=== PATIENT | female | born 1940 | race Caucasian/White ===

== ENCOUNTER 2019-08-24 10:30 | Outpatient (RCR) | payer MEDICARE, SELFPAY ==
[2019-08-21 10:57] VITALS: BP 218/90; PULSE 71; RESP 16; TEMP 36.2; BMI 31.8
--- NOTE | 2019-08-21 12:13 | PCM.WC.HP ---
(1) Leg swelling Status: Chronic Current Visit: Yes Code(s): M79.89 - Other specified soft tissue disorders (2) Edema of both legs Status: Chronic Current Visit: Yes Code(s): R60.0 - Localized edema (3) Venous hypertension, chronic, with ulcer Status: Chronic Current Visit: Yes Code(s): I87.319 - Chronic venous hypertension (idiopathic) with ulcer of unspecified lower extremity; L97.909 - Non-pressure chronic ulcer of unspecified part of unspecified lower leg with unspecified severity (4) Venous stasis ulcer Status: Chronic Current Visit: Yes Qualifiers: Venous stasis ulcer site: calf Varicose vein presence: without varicose veins Laterality: right Non-pressure ulcer stage: with fat layer exposed Qualified Code(s): I87.2 - Venous insufficiency (chronic) (peripheral); L97.212 - Non-pressure chronic ulcer of right calf with fat layer exposed Code(s): I83.009 - Varicose veins of unspecified lower extremity with ulcer of unspecified site; L97.909 - Non-pressure chronic ulcer of unspecified part of unspecified lower leg with unspecified severity (5) Lymphedema Status: Chronic Current Visit: Yes Code(s): I89.0 - Lymphedema, not elsewhere classified (6) Obesity (BMI 30.0-34.9) Status: Chronic Current Visit: Yes Code(s): E66.9 - Obesity, unspecified (7) CAD (coronary artery disease) Status: Chronic Current Visit: No Code(s): I25.10 - Atherosclerotic heart disease of [place] coronary artery without angina pectoris (8) Diabetes mellitus Status: Chronic Current Visit: No Code(s): E11.9 - Type 2 diabetes mellitus without complications (9) Hypertension Status: Chronic Current Visit: No Code(s): I10 - Essential (primary) hypertension (10) History of IN (myocardial infarction) Status: Chronic Current Visit: No Code(s): I25.2 - Old myocardial infarction (11) Hypothyroidism Status: Chronic Current Visit: No Code(s): E03.9 - Hypothyroidism, unspecified (12) Renal failure Status: Chronic Current Visit: No Code(s): N19 - Unspecified kidney failure (13) Hyperlipidemia Status: Chronic Current Visit: No Code(s): E78.5 - Hyperlipidemia, unspecified (14) Debility Status: Chronic Current Visit: Yes Code(s): R53.81 - Other malaise (15) Dependent edema Status: Chronic Current Visit: Yes Code(s): R60.9 - Edema, unspecified History of Present Illness Date of Service: 08/21/19 Chief Complaint: Severe swelling, edema, and lymphedema in the lower extremities bilaterally, with ulceration of the right anterior tibial surface History of Wound: This is a 79-year-old female who presented with severe swelling, edema, and lymphedema in the lower extremities bilaterally. In addition, she has an ulceration on the right anterior tibial surface, said to be present for approximately 6 weeks. It initially occurred approximately 6 weeks ago, having developed spontaneously. Initially, according to the patient, the area became blistered, and subsequently opened to form an ulceration. Patient is not active. She spends long hours each day sitting idlely. She sleeps in a chair. When ambulatory, she requires the use of a cane or walker. She is mildly obese. Past Medical History Past Medical History: Chronic Problems Leg swelling (Chronic) Edema of both legs (Chronic) Venous hypertension, chronic, with ulcer (Chronic) Venous stasis ulcer (Chronic) Lymphedema (Chronic) Obesity (BMI 30.0-34.9) (Chronic) CAD (coronary artery disease) (Chronic) Diabetes mellitus (Chronic) Hypertension (Chronic) History of IN (myocardial infarction) (Chronic) Hypothyroidism (Chronic) Renal failure (Chronic) Hyperlipidemia (Chronic) Debility (Chronic) Dependent edema (Chronic) Past Medical History: The patient has a history of myocardial infarction, coronary artery disease, hyperlipidemia, diabetes mellitus, hypertension, hypothyroidism, and chronic renal insufficiency. She denies a history of pulmonary disease, cancer, and cerebrovascular accident. Surgical History: - - Patient is undergone partial hysterectomy in the past. She is also undergone cholecystectomy. Coronary revascularization was performed approximately 6 years ago. The patient is a G3, P3 Ab0. Allergies/Adverse Reactions: Allergies indomethacin [From Indocin] Allergy (Verified 08/21/19 11:29) Vomiting Home Medications: Ambulatory Orders Medication Instructions Recorded Aspirin [Aspir 81] 81 mg PO DAILY 08/21/19 Atorvastatin Calcium 80 mg PO DAILY 08/21/19 Chlorthalidone 50 mg PO DAILY 08/21/19 Cholecalciferol (Vitamin D3) 2,000 unit PO DAILY 08/21/19 [Vitamin D3] Digoxin [Digitek] 125 mcg PO DAILY 08/21/19 Glimepiride [Amaryl] 2 mg PO DAILY 08/21/19 Hydralazine HCl 100 mg PO TID 08/21/19 Isosorbide Mononitrate [Isosorbide 30 mg PO DAILY 08/21/19 Mononitrate ER] Levothyroxine Sodium 125 mcg PO DAILY 08/21/19 Lisinopril 20 mg PO DAILY 08/21/19 Metoprolol Tartrate 50 mg PO BID 08/21/19 - Family History Paternal - - Patient's father at the age of 56 with a history of myocardial infarction. The patient's mother at the age of 56 with history of breast cancer. Social History: The patient is a . 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 She denies use of alcohol and tobacco products. She lives with her daughter. Lives: With Family Smoking Status: Never smoker Tobacco Use: Non-smoker Alcohol: None Drugs: None Review of Systems Constitutional: Denies: Chills, Fever, Weight Change Eyes: Denies: Pain, Vision Change HEENT: Denies: Difficulty Hearing, Difficulty Swallowing, Sinus Congestion Cardiovascular: Denies: Chest Pain, Palpitations Respiratory: Denies: Cough, Shortness of Breath Gastrointestinal: Denies: Diarrhea, Nausea, Vomiting Genitourinary: Denies: Dysuria, Hematuria Endocrine: Denies: Heat/ Cold Intolerance, Polydipsia, Polyuria Hematologic/ Lymphatic: Denies: Easy Bruising, Easy Bleeding - Physical Exam Vital Signs Temp Pulse Resp BP 97.1 F L 71 16 218/90 H 08/21/19 10:57 08/21/19 10:57 08/21/19 10:57 08/21/19 10:57 General: Alert, Oriented x3, Cooperative, No apparent distress, Well developed, Well nourished, - - The patient is mildly obese HEENT: Atraumatic, PERRLA, EOMI, Normocephalic Oral: Moist Mucosa Neck: Supple, No JVD, Negative Carotid Bruits, Negative Hepatojugular Reflux, No Nodes, No Nuchal Rigidity, Trachea Midline Lungs: Clear to auscultation, Normal air movement, No rhonchi, No wheeze, No rales Cardiovascular: Regular rate, Regular Rhythm, Normal S1, Normal S2, No murmurs Abdomen: Soft, Non Tender, Non-Distended Extremities: No clubbing, No cyanosis, No Calf Tenderness, - - Severe swelling, edema, and lymphedema is noted in the lower extremities bilaterally. In the left leg, there are no open wounds or ulcerations. There are no significant skin changes. On the right, there is a large open wound on the right anterior tibial surface. Dimensions are documented elsewhere. There is no sign of lupe infection or cellulitis. There is some surrounding blistering. Skin: No rashes Wound Measurements and Assessment WC - Nurse 1 - General Ulcer Measurement Start: 08/21/19 10:55 Freq: Status: Active Protocol: Activity Type Activity Date Activity User E-Sign Co-Sign Detail Recorded Client Recorded Date Recorded By Document 08/21/19 10:57 JESUS MANUEL [email or web address] 08/21/19 11:16 JESUS MANUEL 08/21/19 10:57 Wound Center Nurse 1 [Ulcer Assessment] 1-right sinclair -Combined with other wound No -Current Size (cm) - Length 9.4 -Current Size (cm) - Width 8 -Current Size (cm) - Depth 0.2 -Total Square Cm 75.2 -Photo Taken Yes -Epithelialization Small 1-33% -Tunneling No -Undermining/Tunneling No -Circular Undermining No -Classification - Thickness Full Thickness without Exposed Support Structure -Classification - Rothman Grading ( Grade 2 Diabetic Ulcer) -Exudate Amt Large -Exudate Type Serosanguineous -Wound Margin Flat & Intact -Granulation Amt Large (67-100%) -Granulation Quality Red -Slough/Fibrin Yes -Necrosis Amt Small (1-33%) -Necrotic Tissue Type Adherent Slough -Structure Exposed N/A -Texture (Ileana-wound Skin Appearance) Assessed, Localized Edema -Moisture (Ileana-wound Skin Appearance Assessed,Dry/ ) Scaly -Color (Ileana-wound Skin Appearance) Assessed, Hemosiderin Staining -Temperature (Ileana-wound Skin No Abnormality Appearance) (Pt Warm) -Tenderness on Palpation (Ileana-wound No Skin Appearance) -Ulcer Cleansing Rinsed/ Irrigated with Saline -Foul Odor after Cleansing No -Anesthetic Used 4% Lidocaine Solution [Edema Assessment] -Lower Limb Edema Present Yes -Right Calf (cm) 50.2 -Right Ankle (cm) 30.1 -Left Calf (cm) 48.2 -Left Ankle (cm) 33.3 Neurological: Cranial nerves II-XII grossly intact, Neuro grossly intact Psych/Mental Status: Normal Affect, Appropriate, Alert and oriented to time, place, person, mood and affect Debridement Note No debridement was completed today Assessment/Plan Active Problems Leg swelling (Chronic) Edema of both legs (Chronic) Venous hypertension, chronic, with ulcer (Chronic) Venous stasis ulcer (Chronic) Lymphedema (Chronic) Obesity (BMI 30.0-34.9) (Chronic) Debility (Chronic) Dependent edema (Chronic) Assessment: This is a 79-year-old mildly obese female with multiple pre-existing medical conditions. These include, but are not limited to, diabetes mellitus, coronary artery disease, hyperlipidemia, hypertension, hypothyroidism, renal insufficiency, etc. The patient is extremely hypertensive today, a factor but has been brought to the patient's attention. She is to follow-up with her primary care physician in this regard. She has significant swelling, edema, and lymphedema in the lower extremities bilaterally, with an associated open ulceration on the right anterior tibial surface. Her presenting symptoms and manifestations appear to be related to lifestyle factors. She is sedentary, and sits for long periods each day. Furthermore, the patient sleeps in an upright position. She is mildly obese, and not active. It appears as though these lifestyle factors have resulted in significant swelling, edema, and lymphedema in the patient's lower extremities, which have more recently resulted in the element of an ulceration on the right anterior tibial surface. Plan: The patient has been advised to elevate her lower extremities as much as possible. The means by which this is to be accomplished has been discussed in detail with the patient and with her daughter, who was at the bedside. Patient's legs are to be elevated to heart level, or higher. This is to be accomplished as much as possible, even during daytime hours. The patient has been advised to sleep on a flat mattress at night. Activity has been encouraged, though the patient is somewhat limited by her physical status. She has been urged to refrain from prolonged, idle standing and sitting. Weight loss has been recommended. We are to implement compression to the lower extremities by means of an [place] boot in the right lower extremity, and a 3M 2 layer compression wrap to the left lower extremity. These compression wraps are to be changed twice weekly. Patient is to undergo routine laboratory studies, which will include a CBC, comprehensive metabolic profile, serum prealbumin, and hemoglobin A1c. A noninvasive lower extremity arterial study will also be obtained. Patient has been advised to optimize her nutritional intake. Optimization of the patient's glycemic control has also been recommended. Ultimately, mechanical, pneumatic compression pumps may be considered. Influenza vaccine was not administered today. Patient is not a smoker. The patient is 5 feet 3 inches tall. She weighs 180 pounds. Her BMI is 31.8, which places her in a class I obesity category. Weight loss has been recommended, in collaboration with her primary care physician in this regard has been advised.
[2019-08-24 10:52] VITALS: RESP 16; TEMP 36.1; BMI 31.8
== END 2019-08-27 23:59 ==
LOC: WC 10:30
PROVIDERS: Family Provider Family Medicine; PCP Family Medicine; Visit Provider Surgery
DX: E11.622 Type 2 diabetes mellitus with other skin ulcer (principal); I89.0 Lymphedema, not elsewhere classified; E66.9 Obesity, unspecified; Z71.3 Dietary counseling and surveillance; I25.10 Atherosclerotic heart disease of native coronary artery without angina pectoris; M79.89 Other specified soft tissue disorders; I87.311 Chronic venous hypertension (idiopathic) with ulcer of right lower extremity; L97.812 Non-pressure chronic ulcer of other part of right lower leg with fat layer exposed; R60.0 Localized edema; I25.2 Old myocardial infarction; I12.9 Hypertensive chronic kidney disease with stage 1 through stage 4 chronic kidney disease, or unspecified chronic kidney disease; N18.9 Chronic kidney disease, unspecified; E11.22 Type 2 diabetes mellitus with diabetic chronic kidney disease; E78.5 Hyperlipidemia, unspecified; E03.9 Hypothyroidism, unspecified; Z79.899 Other long term (current) drug therapy; Z68.31 Body mass index [BMI] 31.0-31.9, adult
CPT/HCPCS: 29580; 29581; 99203; 99213; G0463

== ENCOUNTER 2019-09-25 10:45 | Outpatient (RCR) | payer MEDICARE, SELFPAY ==
[2019-08-28 01:20] VITALS: BP 218/90; PULSE 71; RESP 16; TEMP 36.1
[2019-08-28 11:00] VITALS: BP 171/90; PULSE 70; RESP 20; TEMP 36; BMI 31.8
--- NOTE | 2019-08-28 11:29 | HP.PCM_ITS ---
(1) Leg swelling Status: Chronic Current Visit: Yes Code(s): M79.89 - Other specified soft tissue disorders (2) Edema of both legs Status: Chronic Current Visit: Yes Code(s): R60.0 - Localized edema (3) Venous hypertension, chronic, with ulcer Status: Chronic Current Visit: Yes Code(s): I87.319 - Chronic venous hypertension (idiopathic) with ulcer of unspecified lower extremity; L97.909 - Non-pressure chronic ulcer of unspecified part of unspecified lower leg with unspecified severity (4) Venous stasis ulcer Status: Chronic Current Visit: Yes Qualifiers: Venous stasis ulcer site: calf Varicose vein presence: without varicose veins Laterality: right Code(s): I83.009 - Varicose veins of unspecified lower extremity with ulcer of unspecified site; L97.909 - Non-pressure chronic ulcer of unspecified part of unspecified lower leg with unspecified severity (5) Lymphedema Status: Chronic Current Visit: Yes Code(s): I89.0 - Lymphedema, not elsewhere classified (6) Obesity (BMI 30.0-34.9) Status: Chronic Current Visit: Yes Code(s): E66.9 - Obesity, unspecified (7) CAD (coronary artery disease) Status: Chronic Current Visit: No Code(s): I25.10 - Atherosclerotic heart disease of [place] coronary artery without angina pectoris (8) Diabetes mellitus Status: Chronic Current Visit: No Code(s): E11.9 - Type 2 diabetes mellitus without complications (9) Hypertension Status: Chronic Current Visit: No Code(s): I10 - Essential (primary) hyp ertension (10) History of NH (myocardial infarction) Status: Chronic Current Visit: No Code(s): I25.2 - Old myocardial infarction (11) Hypothyroidism Status: Chronic Current Visit: No Code(s): E03.9 - Hypothyroidism, unspecified (12) Renal failure Status: Chronic Current Visit: No Code(s): N19 - Unspecified kidney failure (13) Hyperlipidemia Status: Chronic Current Visit: No Code(s): E78.5 - Hyperlipidemia, unspe cified (14) Debility Status: Chronic Current Visit: Yes Code(s): R53.81 - Other malaise (15) Dependent edema Status: Chronic Current Visit: Yes Code(s): R60.9 - Edema, unspecified History of Present Illness Date of Service: 08/28/19 Chief Complaint: Severe swelling, edema, and lymphedema in the lower extremities bilaterally, with ulceration of the right anterior tibial surface History of Wound: This is a 79-year-old female who presented with severe swelling, edema, and lymphedema in the lower extremities bilaterally. In addition, she has an ulceration on the right anterior tibial surface, said to be present for approximately 6 weeks. It initially occurred approximately 6 weeks prior to admission, having developed spontaneously. Initially, according to the patient, the area became blistered, and subsequently opened to form an ulceration. Patient is not active. She spends long hours each day sitting idlely. She sleeps in a chair. When ambulatory, she requires the use of a cane or walker. She is mildly obese. Past Medical History Past Medical History: Chronic Problems Leg swelling (Chronic) Edema of both legs (Chronic) Venous hypertension, chronic, with ulcer (Chronic) Venous stasis ulcer (Chronic) Lymphedema (Chronic) Obesity (BMI 30.0-34.9) (Chronic) CAD (coronary artery disease) (Chronic) Diabetes mellitus (Chronic) Hypertension (Chronic) History of NH (myocardial infarction) (Chronic) Hypothyroidism (Chronic) Renal failure (Chronic) Hyperlipidemia (Chronic) Debility (Chronic) Dependent edema (Chronic) Surgical History: - - Patient is undergone partial hysterectomy in the past. She is also undergone cholecystectomy. Coronary revascularization was performed approximately 6 years ago. The patient is a G3, P3 Ab0. Allergies/Adverse Reactions: Allergies indomethacin [From Indocin] Allergy (Verified 08/21/19 11:29) Vomiting Home Medications: Ambulatory Orders Medication Instructions Recorded Aspirin [Aspir 81] 81 mg PO DAILY 08/21/19 Atorvastatin Calcium 80 mg PO DAILY 08/21/19 Chlorthalidone 50 mg PO DAILY 08/21/19 Cholecalciferol (Vitamin D3) 2,000 unit PO DAILY 08/21/19 [Vitamin D3] Digoxin [Digitek] 125 mcg PO DAILY 08/21/19 Glimepiride [Amaryl] 2 mg PO DAILY 08/21/19 Hydralazine HCl 100 mg PO TID 08/21/19 Isosorbide Mononitrate [Isosorbide 30 mg PO DAILY 08/21/19 Mononitrate ER] Levothyroxine Sodium 125 mcg PO DAILY 08/21/19 Lisinopril 20 mg PO DAILY 08/21/19 Metoprolol Tartrate 50 mg PO BID 08/21/19 - Family History Paternal - - Patient's father at the age of 56 with a history of myocardial infarction. The patient's mother at the age of 56 with history of breast cancer. Smoking Status: Never smoker Tobacco Use: Non-smoker Review of Systems Constitutional: Denies: Chills, Fever, Weight Change Eyes: Denies: Pain, Vision Change HEENT: Denies: Difficulty Hearing, Difficulty Swallowing, Sinus Congestion Cardiovascular: Denies: Chest Pain, Palpitations Respiratory: Denies: Cough, Shortness of Breath Gastrointestinal: Denies: Diarrhea, Nausea, Vomiting Genitourinary: Denies: Dysuria, Hematuria Endocrine: Denies: Heat/ Cold Intolerance, Polydipsia, Polyuria Hematologic/ Lymphatic: Denies: Easy Bruising, Easy Bleeding - Physical Exam Vital Signs Temp Pulse Resp BP 96.8 F L 70 20 H 171/90 H 08/28/19 11:00 08/28/19 11:00 08/28/19 11:00 08/28/19 11:00 General: Alert, Oriented x3, Cooperative, No apparent distress, Well developed, Well nourished HEENT: Atraumatic, PERRLA, EOMI, Normocephalic Oral: Moist Mucosa Neck: No JVD Lungs: Normal air movement Abdomen: Non-Distended, Obese Extremities: No clubbing, No cyanosis, No Calf Tenderness, - - Mild swelling and edema persist in the patient's lower extremities bilaterally. A large superficial ulceration is noted on the right anterolateral calf. It is little changed from 1 week prior. Dimensions are documented elsewhere. There is no sign of infection or cellulitis. There is a mild amount of bioburden and nonviable tissue. Skin: No rashes Wound Measurements and Assessment WC - Nurse 1 - General Ulcer Measurement Start: 08/28/19 11:00 Freq: Status: Active Protocol: Activity Type Activity Date Activity User E-Sign Co-Sign Detail Recorded Client Recorded Date Recorded By Document 08/28/19 11:00 DL [id number] 08/28/19 11:11 DL 08/28/19 11:00 Wound Center Nurse 1 [Ulcer Assessment] 1-right sinclair -Current Size (cm) - Length 11.2 -Current Size (cm) - Width 8.6 -Current Size (cm) - Depth 0.1 -Total Square Cm 96.32 -Photo Taken No -Exudate Amt Large -Exudate Type Serosanguineous -Wound Margin Distinct, Outline Attached -Granulation Amt Medium (34-66%) -Granulation Quality Red -Necrosis Amt Medium (34-66%) -Necrotic Tissue Type Adherent Slough -Structure Exposed N/A -Texture (Ileana-wound Skin Appearance) Localized Edema ,Scarring -Moisture (Ileana-wound Skin Appearance No Abnormality ) -Color (Ileana-wound Skin Appearance) Hemosiderin Staining -Temperature (Ileana-wound Skin No Abnormality Appearance) (Pt Warm) -Tenderness on Palpation (Ileana-wound No Skin Appearance) -Ulcer Cleansing Wound Cleanser -Foul Odor after Cleansing No -Anesthetic Used 4% Lidocaine Solution [Edema Assessment] -Right Calf (cm) 40.1 -Right Ankle (cm) 26.5 -Left Calf (cm) 42 -Left Ankle (cm) 29.5 WC - Nurse 2 - General Ulcer CM Notes Start: 08/28/19 11:00 Freq: Status: Active Protocol: Activity Type Activity Date Activity User E-Sign Co-Sign Detail Recorded Client Recorded Date Recorded By Document 08/28/19 11:23 AN [id number] 08/28/19 11:27 AN 08/28/19 11:23 Wound Center Nurse 2 [Procedure/Treatment] 1-right sinclair -Time 11:24 -Correct Patient Yes -Correct Side, Site, Position Yes -Correct Procedure Yes -Procedure Performed Yes -Type of Procedure Debridement -Clinical Debridement Subcutaneous -Post Debridement Size (cm) - Length 11.3 -Post Debridement Size (cm) - Width 8.7 -Post Debridement Size (cm) - Depth 0.1 -Total Square Cm 98.31 -Wound/Ulcer Outcome Not Healed -Ulcer Cleansing Rinsed/ Irrigated with Saline -Foul Odor after Cleansing No -Bioengineered Tissue No -Bleeding Controlled with Pressure -Offloading No -Treatment Response Procedure Tolerated Well [See Physician Procedure note for Specifics] Pain Scale: 0-10 Numeric [Pain] -Is Patient Pain Free? Yes Neurological: Cranial nerves II-XII grossly intact, Neuro grossly intact Psych/Mental Status: Normal Affect, Appropriate, Alert and oriented to time, gardenia ce, person, mood and affect Debridement Note Post-Debridement Measurements/Treatment WC - Nurse 2 - General Ulcer CM Notes Start: 08/28/19 11:00 Freq: Status: Active Protocol: Activity Type Activity Date Activity User E-Sign Co-Sign Detail Recorded Client Recorded Date Recorded By Document 08/28/19 11:23 [id number] 08/28/19 11:27 AN 08/28/19 11:23 Wound Center Nurse 2 1-right sinclair -Time 11:24 -Correct Patient Yes -Correct Side, Site, Position Yes -Correct Procedure Yes -Procedure Performed Yes -Type of Procedure Debridement -Clinical Debridement Subcutaneous -Post Debridement Size (cm) - Length 11.3 -Post Debridement Size (cm) - Width 8.7 -Post Debridement Size (cm) - Depth 0.1 -Total Square Cm 98.31 -Wound/Ulcer Outcome Not Healed -Ulcer Cleansing Rinsed/ Irrigated with Saline -Foul Odor after Cleansing No -Bioengineered Tissue No -Bleeding Controlled with Pressure -Offloading No -Treatment Response Procedure Tolerated Well Pain Scale: 0-10 Numeric Is Patient Pain Free? Yes Laterality: Right - Anterolateral calf Type of Debridement: Excisional debridement Anesthesia Used: 5% Lidocaine Gel Depth: Down to and including healthy tissue, in the subcutaneous layer Percentage of wound debrided: 100 Instrument Used: 7mm curette Tissue Removed: Bioburden and nonviable tissue Severity: Fat Layer Exposed Amount of bleeding with debridement: Mild Bleeding Controlled with: Compression and gauze Patient tolerated procedure well Assessment/Plan Active Problems Leg swelling (Chronic) Edema of both legs (Chronic) Venous hypertension, chronic, with ulcer (Chronic) Venous stasis ulcer (Chronic) Lymphedema (Chronic) Obesity (BMI 30.0-34.9) (Chronic) Debility (Chronic) Dependent edema (Chronic) Assessment: This is a 79-year-old mildly obese female with multiple pre-existing medical conditions. These include, but are not limited to, diabetes mellitus, coronary artery disease, hyperlipidemia, hypertension, hypothyroidism, renal insufficiency, etc. The patient is extremely hypertensive today, a factor but has been brought to the patient's attention. She is to follow-up with her primary care physician in this regard. She has significant swelling, edema, and lymphedema in the lower extremities bilaterally, with an associated open ulceration on the right anterior tibial surface. Her presenting symptoms and manifestations appear to be related to lifestyle factors. She is sedentary, and sits for long periods each day. Furthermore, the patient sleeps in an upright position. She is mildly obese, and not active. It appears as though these lifestyle factors have resulted in significant swelling, edema, and lymphedema in the patient's lower extremities, which have more recently resulted in the element of an ulceration on the right anterior tibial surface. Plan: The patient has been advised to elevate her lower extremities as much as possible. The means by which this is to be accomplished has been discussed in detail with the patient and with her daughter, who was at the bedside. Patient's legs are to be elevated to heart level, or higher. This is to be accomplished as much as possible, even during daytime hours. The patient has been advised to sleep on a flat mattress at night. Activity has been encouraged, though the patient is somewhat limited by her physical status. She has been urged to refrain from prolonged, idle standing and sitting. Weight loss has been recommended. We are to continue compression to the lower extremities by means of an Unna boot in the right lower extremity, and a 3M 2 layer compression wrap to the left lower extremity. These compression wraps are to be changed twice weekly. This compression has been tolerated well thus far. The patient underwent laboratory testing, performed at [facility], the results of which we have not yet received. We will make further efforts to have those results forwarded to our facility. These laboratory tests include a CBC, comprehensive metabolic profile, serum prealbumin, and hemoglobin A1c. A noninvasive lower extremity arterial study was ordered, but was not performed as scheduled yesterday due to a coding discrepancy. We will attempt to obtain MARI's at the patient's current visit. Patient has been advised to optimize her nutritional intake. Optimization of the patient's glycemic control has also been recommended. It is anticipated that the patient will be transition to graduated compression stockings or Velcro compression garments for long-term use. Ultimately, mechanical, pneumatic compression pumps may be considered. Influenza vaccine was not administered today. Patient is not a smoker. The patient is 5 feet 3 inches tall. She weighs 180 pounds. Her BMI is 31.8, which places her in a class I obesity category. Weight loss has been recommended, in collaboration with her primary care physician in this regard has been advised.
--- NOTE | 2019-08-28 11:42 | HP.PCM_ITS ---
(1) Leg swelling Status: Chronic Current Visit: Yes Code(s): M79.89 - Other specified soft tissue disorders (2) Edema of both legs Status: Chronic Current Visit: Yes Code(s): R60.0 - Localized edema (3) Venous hypertension, chronic, with ulcer Status: Chronic Current Visit: Yes Code(s): I87.319 - Chronic venous hypertension (idiopathic) with ulcer of unspecified lower extremity; L97.909 - Non-pressure chronic ulcer of unspecified part of unspecified lower leg with unspecified severity (4) Venous stasis ulcer Status: Chronic Current Visit: Yes Qualifiers: Venous stasis ulcer site: calf Varicose vein presence: without varicose veins Laterality: right Code(s): I83.009 - Varicose veins of unspecified lower extremity with ulcer of unspecified site; L97.909 - Non-pressure chronic ulcer of unspecified part of unspecified lower leg with unspecified severity (5) Lymphedema Status: Chronic Current Visit: Yes Code(s): I89.0 - Lymphedema, not elsewhere classified (6) Obesity (BMI 30.0-34.9) Status: Chronic Current Visit: Yes Code(s): E66.9 - Obesity, unspecified (7) CAD (coronary artery disease) Status: Chronic Current Visit: No Code(s): I25.10 - Atherosclerotic heart disease of [place] coronary artery without angina pectoris (8) Diabetes mellitus Status: Chronic Current Visit: No Code(s): E11.9 - Type 2 diabetes mellitus without complications (9) Hypertension Status: Chronic Current Visit: No Code(s): I10 - Essential (primary) hyp ertension (10) History of ME (myocardial infarction) Status: Chronic Current Visit: No Code(s): I25.2 - Old myocardial infarction (11) Hypothyroidism Status: Chronic Current Visit: No Code(s): E03.9 - Hypothyroidism, unspecified (12) Renal failure Status: Chronic Current Visit: No Code(s): N19 - Unspecified kidney failure (13) Hyperlipidemia Status: Chronic Current Visit: No Code(s): E78.5 - Hyperlipidemia, unspe cified (14) Debility Status: Chronic Current Visit: Yes Code(s): R53.81 - Other malaise (15) Dependent edema Status: Chronic Current Visit: Yes Code(s): R60.9 - Edema, unspecified History of Present Illness Date of Service: 08/28/19 Chief Complaint: Severe swelling, edema, and lymphedema in the lower extremities bilaterally, with ulceration of the right anterior tibial surface History of Wound: This is a 79-year-old female who presented with severe swelling, edema, and lymphedema in the lower extremities bilaterally. In addition, she has an ulceration on the right anterior tibial surface, said to be present for approximately 6 weeks. It initially occurred approximately 6 weeks prior to admission, having developed spontaneously. Initially, according to the patient, the area became blistered, and subsequently opened to form an ulceration. Patient is not active. She spends long hours each day sitting idlely. She sleeps in a chair. When ambulatory, she requires the use of a cane or walker. She is mildly obese. Past Medical History Past Medical History: Chronic Problems Leg swelling (Chronic) Edema of both legs (Chronic) Venous hypertension, chronic, with ulcer (Chronic) Venous stasis ulcer (Chronic) Lymphedema (Chronic) Obesity (BMI 30.0-34.9) (Chronic) CAD (coronary artery disease) (Chronic) Diabetes mellitus (Chronic) Hypertension (Chronic) History of ME (myocardial infarction) (Chronic) Hypothyroidism (Chronic) Renal failure (Chronic) Hyperlipidemia (Chronic) Debility (Chronic) Dependent edema (Chronic) Surgical History: - - Patient is undergone partial hysterectomy in the past. She is also undergone cholecystectomy. Coronary revascularization was performed approximately 6 years ago. The patient is a G3, P3 Ab0. Allergies/Adverse Reactions: Allergies indomethacin [From Indocin] Allergy (Verified 08/21/19 11:29) Vomiting Home Medications: Ambulatory Orders Medication Instructions Recorded Aspirin [Aspir 81] 81 mg PO DAILY 08/21/19 Atorvastatin Calcium 80 mg PO DAILY 08/21/19 Chlorthalidone 50 mg PO DAILY 08/21/19 Cholecalciferol (Vitamin D3) 2,000 unit PO DAILY 08/21/19 [Vitamin D3] Digoxin [Digitek] 125 mcg PO DAILY 08/21/19 Glimepiride [Amaryl] 2 mg PO DAILY 08/21/19 Hydralazine HCl 100 mg PO TID 08/21/19 Isosorbide Mononitrate [Isosorbide 30 mg PO DAILY 08/21/19 Mononitrate ER] Levothyroxine Sodium 125 mcg PO DAILY 08/21/19 Lisinopril 20 mg PO DAILY 08/21/19 Metoprolol Tartrate 50 mg PO BID 08/21/19 - Family History Paternal - - Patient's father at the age of 56 with a history of myocardial infarction. The patient's mother at the age of 56 with history of breast cancer. Smoking Status: Never smoker Tobacco Use: Non-smoker - Physical Exam Vital Signs Temp Pulse Resp BP 96.8 F L 70 20 H 171/90 H 08/28/19 11:00 08/28/19 11:00 08/28/19 11:00 08/28/19 11:00 Wound Measurements and Assessment WC - Nurse 1 - General Ulcer Measurement Start: 08/28/19 11:00 Freq: Status: Active Protocol: Activity Type Activity Date Activity User E-Sign Co-Sign Detail Recorded Client Recorded Date Recorded By Document 08/28/19 11:00 DL [id number] 08/28/19 11:11 DL 08/28/19 11:00 Wound Center Nurse 1 [Ulcer Assessment] 1-right sinclair -Current Size (cm) - Length 11.2 -Current Size (cm) - Width 8.6 -Current Size (cm) - Depth 0.1 -Total Square Cm 96.32 -Photo Taken No -Exudate Amt Large -Exudate Type Serosanguineous -Wound Margin Distinct, Outline Attached -Granulation Amt Medium (34-66%) -Granulation Quality Red -Necrosis Amt Medium (34-66%) -Necrotic Tissue Type Adherent Slough -Structure Exposed N/A -Texture (Ileana-wound Skin Appearance) Localized Edema ,Scarring -Moisture (Ileana-wound Skin Appearance No Abnormality ) -Color (Ileana-wound Skin Appearance) Hemosiderin Staining -Temperature (Ileana-wound Skin No Abnormality Appearance) (Pt Warm) -Tenderness on Palpation (Ileana-wound No Skin Appearance) -Ulcer Cleansing Wound Cleanser -Foul Odor after Cleansing No -Anesthetic Used 4% Lidocaine Solution [Edema Assessment] -Right Calf (cm) 40.1 -Right Ankle (cm) 26.5 -Left Calf (cm) 42 -Left Ankle (cm) 29.5 WC - Nurse 2 - General Ulcer CM Notes Start: 08/28/19 11:00 Freq: Status: Active Protocol: Activity Type Activity Date Activity User E-Sign Co-Sign Detail Recorded Client Recorded Date Recorded By Document 08/28/19 11:23 AN [id number] 08/28/19 11:27 AN 08/28/19 11:23 Wound Center Nurse 2 [Procedure/Treatment] 1-right sinclair -Time 11:24 -Correct Patient Yes -Correct Side, Site, Position Yes -Correct Procedure Yes -Procedure Performed Yes -Type of Procedure Debridement -Clinical Debridement Subcutaneous -Post Debridement Size (cm) - Length 11.3 -Post Debridement Size (cm) - Width 8.7 -Post Debridement Size (cm) - Depth 0.1 -Total Square Cm 98.31 -Wound/Ulcer Outcome Not Healed -Ulcer Cleansing Rinsed/ Irrigated with Saline -Foul Odor after Cleansing No -Bioengineered Tissue No -Bleeding Controlled with Pressure -Offloading No -Treatment Response Procedure Tolerated Well [See Physician Procedure note for Specifics] Pain Scale: 0-10 Numeric [Pain] -Is Patient Pain Free? Yes Debridement Note Post-Debridement Measurements/Treatment WC - Nurse 2 - General Ulcer CM Notes Start: 08/28/19 11:00 Freq: Status: Active Protocol: Activity Type Activity Date Activity User E-Sign Co-Sign Detail Recorded Client Recorded Date Recorded By Document 08/28/19 11:23 AN [id number] 08/28/19 11:27 AN 08/28/19 11:23 Wound Center Nurse 2 1-right sinclair -Time 11:24 -Correct Patient Yes -Correct Side, Site, Position Yes -Correct Procedure Yes -Procedure Performed Yes -Type of Procedure Debridement -Clinical Debridement Subcutaneous -Post Debridement Size (cm) - Length 11.3 -Post Debridement Size (cm) - Width 8.7 -Post Debridement Size (cm) - Depth 0.1 -Total Square Cm 98.31 -Wound/Ulcer Outcome Not Healed -Ulcer Cleansing Rinsed/ Irrigated with Saline -Foul Odor after Cleansing No -Bioengineered Tissue No -Bleeding Controlled with Pressure -Offloading No -Treatment Response Procedure Tolerated Well Pain Scale: 0-10 Numeric Is Patient Pain Free? Yes Assessment/Plan Active Problems Leg swelling (Chronic) Edema of both legs (Chronic) Venous hypertension, chronic, with ulcer (Chronic) Venous stasis ulcer (Chronic) Lymphedema (Chronic) Obesity (BMI 30.0-34.9) (Chronic) Debility (Chronic) Dependent edema (Chronic) Assessment: This is a 79-year-old mildly obese female with multiple pre-existing medical conditions. These include, but are not limited to, diabetes mellitus, coronary artery disease, hyperlipidemia, hypertension, hypothyroidism, renal insufficiency, etc. The patient is extremely hypertensive today, a factor but has been brought to the patient's attention. She is to follow-up with her primary care physician in this regard. She has significant swelling, edema, and lymphedema in the lower extremities bilaterally, with an associated open ulceration on the right anterior tibial surface. Her presenting symptoms and manifestations appear to be related to lifestyle factors. She is sedentary, and sits for long periods each day. Furthermore, the patient sleeps in an upright position. She is mildly obese, and not active. It appears as though these lifestyle factors have resulted in significant swelling, edema, and lymphedema in the patient's lower extremities, which have more recently resulted in the element of an ulceration on the right anterior tibial surface. Plan: The patient has been advised to elevate her lower extremities as much as possible. The means by which this is to be accomplished has been discussed in detail with the patient and with her daughter, who was at the bedside. Patient's legs are to be elevated to heart level, or higher. This is to be accomplished as much as possible, even during daytime hours. The patient has been advised to sleep on a flat mattress at night. Activity has been encouraged, though the patient is somewhat limited by her physical status. She has been urged to refrain from prolonged, idle standing and sitting. Weight loss has been recommended. We are to continue compression to the lower extremities by means of an [place] boot in the right lower extremity, and a 3M 2 layer compression wrap to the left lower extremity. These compression wraps are to be changed twice weekly. This compression has been tolerated well thus far. The patient underwent laboratory testing, performed at [facility], the results of which we have not yet received. We will make further efforts to have those results forwarded to our facility. These laboratory tests include a CBC, comprehensive metabolic profile, serum prealbumin, and hemoglobin A1c. A noninvasive lower extremity arterial study was ordered, but was not performed as scheduled yesterday due to a coding discrepancy. We will attempt to obtain MARI's at the patient's current visit. Patient has been advised to optimize her nutritional intake. Optimization of the patient's glycemic control has also been recommended. It is anticipated that the patient will be transition to graduated compression stockings or Velcro compression garments for long-term use. Ultimately, mechanical, pneumatic compression pumps may be considered. An attempt has been made to obtain MARI's in our facility today. However, the cuff placed on the distal right lower extremity was extremely painful, and not tolerated by the patient. The left lower extremity vascularly was noncompressible, therefore not yielding a viable pressure reading. Because c ompression wraps have been used thus far for an entire week, without apparent adverse consequences, it is judged that continuation of the compression wraps and the use of such compression in the lower extremities will be tolerable and, at least thus far, devoid of problems or complications. Influenza vaccine was not administered today. Patient is not a smoker. The patient is 5 feet 3 inches tall. She weighs 180 pounds. Her BMI is 31.8, which places her in a class I obesity category. Weight loss has been recommended, in collaboration with her primary care physician in this regard has been advised.
[2019-08-31 15:47] VITALS: PULSE 60; RESP 20; TEMP 36.2; BMI 31.8
[2019-09-04 11:19] VITALS: BP 176/82; PULSE 54; RESP 18; BMI 31.8
--- NOTE | 2019-09-04 12:07 | HP.PCM_ITS ---
(1) Leg swelling Status: Chronic Current Visit: Yes Code(s): M79.89 - Other specified soft tissue disorders (2) Edema of both legs Status: Chronic Current Visit: Yes Code(s): R60.0 - Localized edema (3) Venous hypertension, chronic, with ulcer Status: Chronic Current Visit: Yes Code(s): I87.319 - Chronic venous hypertension (idiopathic) with ulcer of unspecified lower extremity; L97.909 - Non-pressure chronic ulcer of unspecified part of unspecified lower leg with unspecified severity (4) Venous stasis ulcer Status: Chronic Current Visit: Yes Qualifiers: Venous stasis ulcer site: calf Varicose vein presence: without varicose veins Laterality: right Code(s): I83.009 - Varicose veins of unspecified lower extremity with ulcer of unspecified site; L97.909 - Non-pressure chronic ulcer of unspecified part of unspecified lower leg with unspecified severity (5) Lymphedema Status: Chronic Current Visit: Yes Code(s): I89.0 - Lymphedema, not elsewhere classified (6) Obesity (BMI 30.0-34.9) Status: Chronic Current Visit: Yes Code(s): E66.9 - Obesity, unspecified (7) CAD (coronary artery disease) Status: Chronic Current Visit: No Code(s): I25.10 - Atherosclerotic heart disease of [place] coronary artery without angina pectoris (8) Diabetes mellitus Status: Chronic Current Visit: No Code(s): E11.9 - Type 2 diabetes mellitus without complications (9) Hypertension Status: Chronic Current Visit: No Code(s): I10 - Essential (primary) hyp ertension (10) History of MD (myocardial infarction) Status: Chronic Current Visit: No Code(s): I25.2 - Old myocardial infarction (11) Hypothyroidism Status: Chronic Current Visit: No Code(s): E03.9 - Hypothyroidism, unspecified (12) Renal failure Status: Chronic Current Visit: No Code(s): N19 - Unspecified kidney failure (13) Hyperlipidemia Status: Chronic Current Visit: No Code(s): E78.5 - Hyperlipidemia, unspe cified (14) Debility Status: Chronic Current Visit: Yes Code(s): R53.81 - Other malaise (15) Dependent edema Status: Chronic Current Visit: Yes Code(s): R60.9 - Edema, unspecified History of Present Illness Date of Service: 09/04/19 Chief Complaint: Severe swelling, edema, and lymphedema in the lower extremities bilaterally, with ulceration of the right anterior tibial surface History of Wound: This is a 79-year-old female who presented with severe swelling, edema, and lymphedema in the lower extremities bilaterally. In addition, she has an ulceration on the right anterior tibial surface, said to be present for approximately 6 weeks. It initially occurred approximately 6 weeks prior to admission, having developed spontaneously. Initially, according to the patient, the area became blistered, and subsequently opened to form an ulceration. Patient is not active. She spends long hours each day sitting idlely. She sleeps in a chair. When ambulatory, she requires the use of a cane or walker. She is mildly obese. Past Medical History Past Medical History: Chronic Problems Leg swelling (Chronic) Edema of both legs (Chronic) Venous hypertension, chronic, with ulcer (Chronic) Venous stasis ulcer (Chronic) Lymphedema (Chronic) Obesity (BMI 30.0-34.9) (Chronic) CAD (coronary artery disease) (Chronic) Diabetes mellitus (Chronic) Hypertension (Chronic) History of MD (myocardial infarction) (Chronic) Hypothyroidism (Chronic) Renal failure (Chronic) Hyperlipidemia (Chronic) Debility (Chronic) Dependent edema (Chronic) Surgical History: - - Patient is undergone partial hysterectomy in the past. She is also undergone cholecystectomy. Coronary revascularization was performed approximately 6 years ago. The patient is a G3, P3 Ab0. Allergies/Adverse Reactions: Allergies indomethacin [From Indocin] Allergy (Verified 08/21/19 11:29) Vomiting Home Medications: Ambulatory Orders Medication Instructions Recorded Aspirin [Aspir 81] 81 mg PO DAILY 08/21/19 Atorvastatin Calcium 80 mg PO DAILY 08/21/19 Chlorthalidone 50 mg PO DAILY 08/21/19 Cholecalciferol (Vitamin D3) 2,000 unit PO DAILY 08/21/19 [Vitamin D3] Digoxin [Digitek] 125 mcg PO DAILY 08/21/19 Glimepiride [Amaryl] 2 mg PO DAILY 08/21/19 Hydralazine HCl 100 mg PO TID 08/21/19 Isosorbide Mononitrate [Isosorbide 30 mg PO DAILY 08/21/19 Mononitrate ER] Levothyroxine Sodium 125 mcg PO DAILY 08/21/19 Lisinopril 20 mg PO DAILY 08/21/19 Metoprolol Tartrate 50 mg PO BID 08/21/19 - Family History Paternal - - Patient's father at the age of 56 with a history of myocardial infarction. The patient's mother at the age of 56 with history of breast cancer. Smoking Status: Never smoker Tobacco Use: Non-smoker Review of Systems Constitutional: Denies: Chills, Fever, Weight Change Eyes: Denies: Pain, Vision Change HEENT: Denies: Difficulty Hearing, Difficulty Swallowing, Sinus Congestion Cardiovascular: Denies: Chest Pain, Palpitations Respiratory: Denies: Cough, Shortness of Breath Gastrointestinal: Denies: Diarrhea, Nausea, Vomiting Genitourinary: Denies: Dysuria, Hematuria Endocrine: Denies: Heat/ Cold Intolerance, Polydipsia, Polyuria Hematologic/ Lymphatic: Denies: Easy Bruising, Easy Bleeding - Physical Exam Vital Signs Temp Pulse Resp BP 97.2 F L 54 L 18 176/82 H 08/31/19 15:47 09/04/19 11:19 09/04/19 11:19 09/04/19 11:19 General: Alert, Oriented x3, Cooperative, No apparent distress, Well developed, Well nourished HEENT: Atraumatic, PERRLA, EOMI, Normocephalic Oral: Moist Mucosa Neck: No JVD Lungs: Normal air movement Abdomen: Non-Distended Extremities: No clubbing, No cyanosis, No Calf Tenderness, - - Bilateral lower extremity swelling and edema persists. The swelling is more pronounced in the right lower extremity. Circumference measurements are documented elsewhere. Mild hyperpigmentation is noted in the gaiter areas. A large open ulceration is noted on the right anterior tibial surface. Dimensions are documented elsewhere. There is no sign of infection or cellulitis. There is no significant bioburden. Wound Measurements and Assessment WC - Nurse 1 - General Ulcer Measurement Start: 08/28/19 11:00 Freq: Status: Active Protocol: Activity Type Activity Date Activity User E-Sign Co-Sign Detail Recorded Client Recorded Date Recorded By Document 09/04/19 11:19 IL [id number] 09/04/19 11:34 MT 09/04/19 11:19 Wound Center Nurse 1 [Ulcer Assessment] 1-right sinclair -Current Size (cm) - Length 12.1 -Current Size (cm) - Width 9.0 -Current Size (cm) - Depth 0.1 -Total Square Cm 108.90 -Exudate Amt Medium -Exudate Type Sanguineous -Wound Margin Flat & Intact -Granulation Amt Large (67-100%) -Granulation Quality Red -Slough/Fibrin No -Texture (Ileana-wound Skin Appearance) Assessed, Localized Edema -Moisture (Ileana-wound Skin Appearance Assessed ) -Color (Ileana-wound Skin Appearance) Assessed -Temperature (Ileana-wound Skin No Abnormality Appearance) (Pt Warm) -Tenderness on Palpation (Ileana-wound No Skin Appearance) -Ulcer Cleansing Wound Cleanser -Foul Odor after Cleansing No -Anesthetic Used 4% Lidocaine Solution [Edema Assessment] -Right Calf (cm) 46 -Right Ankle (cm) 29 -Left Calf (cm) 37 -Left Ankle (cm) 26 - Nurse 2 - General Ulcer CM Notes Start: 08/28/19 11:00 Freq: Status: Active Protocol: Activity Type Activity Date Activity User E-Sign Co-Sign Detail Recorded Client Recorded Date Recorded By Document 09/04/19 12:03 [id number] 09/04/19 12:04 09/04/19 12:03 Wound Center Nurse 2 [Procedure/Treatment] 1-right sinclair -Correct Patient No -Correct Side, Site, Position No -Correct Procedure No -Procedure Performed No -Wound/Ulcer Outcome Not Healed [See Physician Procedure note for Specifics] Pain Scale: 0-10 Numeric [Pain] -Is Patient Pain Free? Yes Neurological: Cranial nerves II-XII grossly intact, Neuro grossly intact Psych/Mental Status: Normal Affect, Appropriate, Alert and oriented to time, place, person, mood and affect Debridement Note Post-Debridement Measurements/Treatment - Nurse 2 - General Ulcer CM Notes Start: 08/28/19 11:00 Freq: Status: Active Protocol: Activity Type Activity Date Activity User E-Sign Co-Sign Detail Recorded Client Recorded Date Recorded By Document 08/28/19 11:23 AN [id number] 08/28/19 11:27 AN Document 09/04/19 12:03 [id number] 09/04/19 12:04 08/28/19 09/04/19 11:23 12:03 Wound Center Nurse 2 1-right sinclair -Time 11:24 -Correct Patient Yes No -Correct Side, Site, Position Yes No -Correct Procedure Yes No -Procedure Performed Yes No -Type of Procedure Debridement -Clinical Debridement Subcutaneous -Post Debridement Size (cm) - Length 11.3 -Post Debridement Size (cm) - Width 8.7 -Post Debridement Size (cm) - Depth 0.1 -Total Square Cm 98.31 -Wound/Ulcer Outcome Not Healed Not Healed -Ulcer Cleansing Rinsed/ Irrigated with Saline -Foul Odor after Cleansing No -Bioengineered Tissue No -Bleeding Controlled with Pressure -Offloading No -Treatment Response Procedure Tolerated Well Pain Scale: 0-10 Numeric Is Patient Pain Free? Yes Yes No debridement was completed today - The patient's ulceration appears clean, healthy, and with active granulation tissue. Assessment/Plan Active Problems Leg swelling (Chronic) Edema of both legs (Chronic) Venous hypertension, chronic, with ulcer (Chronic) Venous stasis ulcer (Chronic) Lymphedema (Chronic) Obesity (BMI 30.0-34.9) (Chronic) Debility (Chronic) Dependent edema (Chronic) Assessment: This is a 79-year-old mildly obese female with multiple pre-existing medical conditions. These include, but are not limited to, diabetes mellitus, coronary artery disease, hyperlipidemia, hypertension, hypothyroidism, renal insufficiency, etc. She has significant swelling, edema, and lymphedema in the lower extremities bilaterally, with an associated open ulceration on the right anterior tibial surface. Her presenting symptoms and manifestations appear to be related to lifestyle factors. She is sedentary, and sits for long periods each day. Furthermore, the patient sleeps in an upright position. She is mildly obese, and not active. It appears as though these lifestyle factors have resulted in significant swelling, edema, and lymphedema in the patient's lower extremities, which have more recently resulted in the development of an ulceration on the right anterior tibial surface. Plan: The patient has been advised to elevate her lower extremities as much as possible. The means by which this is to be accomplished has been discussed in detail with the patient and with her daughter, who was at the bedside. Patient's legs are to be elevated to heart level, or higher. This is to be accomplished as much as possible, even during daytime hours. The patient has been advised to sleep on a flat mattress at night. Activity has been encouraged, though the patient is somewhat limited by her physical status. She has been urged to refrain from prolonged, idle standing and sitting. Weight loss has been recommended. We are to continue compression to the lower extremities by means of 3M 2 layer compression wraps bilaterally. We are to use Fibracol topically to the large ulceration on the right anterior tibial surface. These compression wraps are to be changed twice weekly. This compression has been tolerated well thus far. The patient underwent laboratory testing, performed at [facility], the results of which we have not yet received. We will make further efforts to have those results forwarded to our facility. These laboratory tests include a CBC, comprehensive metabolic profile, serum prealbumin, and hemoglobin A1c. A noninvasive lower extremity arterial study was ordered, but was not performed as scheduled due to insurance issues. However, the patient has been tolerating compression wraps thus far, without any adverse consequences. Patient has been advised to optimize her nutritional intake. Optimization of the patient's glycemic control has also been recommended. It is anticipated that the patient will be transition to graduated compression stockings or Velcro compression garments for long-term use. Ultimately, mechanical, pneumatic compression pumps may be considered. Patient will return in 1 week for reassessment. Influenza vaccine was not administered today. Patient is not a smoker. The patient is 5 feet 3 inches tall. She weighs 180 pounds. Her BMI is 31.8, which places her in a class I obesity category. Weight loss has been recommended, in collaboration with her primary care physician in this regard has been advised.
[2019-09-07 11:47] VITALS: BP 168/74; PULSE 62; RESP 18; TEMP 36.6; BMI 31.8
[2019-09-11 10:54] VITALS: BP 186/71; PULSE 57; RESP 18; TEMP 36.2; BMI 31.8
--- NOTE | 2019-09-11 11:48 | HP.PCM_ITS ---
(1) Leg swelling Status: Chronic Current Visit: Yes Code(s): M79.89 - Other specified soft tissue disorders (2) Edema of both legs Status: Chronic Current Visit: Yes Code(s): R60.0 - Localized edema (3) Venous hypertension, chronic, with ulcer Status: Chronic Current Visit: Yes Code(s): I87.319 - Chronic venous hypertension (idiopathic) with ulcer of unspecified lower extremity; L97.909 - Non-pressure chronic ulcer of unspecified part of unspecified lower leg with unspecified severity (4) Venous stasis ulcer Status: Chronic Current Visit: Yes Qualifiers: Venous stasis ulcer site: calf Varicose vein presence: without varicose veins Laterality: right Code(s): I83.009 - Varicose veins of unspecified lower extremity with ulcer of unspecified site; L97.909 - Non-pressure chronic ulcer of unspecified part of unspecified lower leg with unspecified severity (5) Lymphedema Status: Chronic Current Visit: Yes Code(s): I89.0 - Lymphedema, not elsewhere classified (6) Obesity (BMI 30.0-34.9) Status: Chronic Current Visit: Yes Code(s): E66.9 - Obesity, unspecified (7) CAD (coronary artery disease) Status: Chronic Current Visit: No Code(s): I25.10 - Atherosclerotic heart disease of [place] coronary artery without angina pectoris (8) Diabetes mellitus Status: Chronic Current Visit: No Code(s): E11.9 - Type 2 diabetes mellitus without complications (9) Hypertension Status: Chronic Current Visit: No Code(s): I10 - Essential (primary) hyp ertension (10) History of RI (myocardial infarction) Status: Chronic Current Visit: No Code(s): I25.2 - Old myocardial infarction (11) Hypothyroidism Status: Chronic Current Visit: No Code(s): E03.9 - Hypothyroidism, unspecified (12) Renal failure Status: Chronic Current Visit: No Code(s): N19 - Unspecified kidney failure (13) Hyperlipidemia Status: Chronic Current Visit: No Code(s): E78.5 - Hyperlipidemia, unspe cified (14) Debility Status: Chronic Current Visit: Yes Code(s): R53.81 - Other malaise (15) Dependent edema Status: Chronic Current Visit: Yes Code(s): R60.9 - Edema, unspecified History of Present Illness Date of Service: 09/11/19 Chief Complaint: Severe swelling, edema, and lymphedema in the lower extremities bilaterally, with ulceration of the right anterior tibial surface History of Wound: This is a 79-year-old female who presented with severe swelling, edema, and lymphedema in the lower extremities bilaterally. In addition, she has an ulceration on the right anterior tibial surface, said to be present for approximately 6 weeks. It initially occurred approximately 6 weeks prior to admission, having developed spontaneously. Initially, according to the patient, the area became blistered, and subsequently opened to form an ulceration. Patient is not active. She spends long hours each day sitting idlely. She sleeps in a chair. When ambulatory, she requires the use of a cane or walker. She is mildly obese. Past Medical History Past Medical History: Chronic Problems Leg swelling (Chronic) Edema of both legs (Chronic) Venous hypertension, chronic, with ulcer (Chronic) Venous stasis ulcer (Chronic) Lymphedema (Chronic) Obesity (BMI 30.0-34.9) (Chronic) CAD (coronary artery disease) (Chronic) Diabetes mellitus (Chronic) Hypertension (Chronic) History of RI (myocardial infarction) (Chronic) Hypothyroidism (Chronic) Renal failure (Chronic) Hyperlipidemia (Chronic) Debility (Chronic) Dependent edema (Chronic) Surgical History: - - Patient is undergone partial hysterectomy in the past. She is also undergone cholecystectomy. Coronary revascularization was performed approximately 6 years ago. The patient is a G3, P3 Ab0. Allergies/Adverse Reactions: Allergies indomethacin [From Indocin] Allergy (Verified 08/21/19 11:29) Vomiting Home Medications: Ambulatory Orders Medication Instructions Recorded Aspirin [Aspir 81] 81 mg PO DAILY 08/21/19 Atorvastatin Calcium 80 mg PO DAILY 08/21/19 Chlorthalidone 50 mg PO DAILY 08/21/19 Cholecalciferol (Vitamin D3) 2,000 unit PO DAILY 08/21/19 [Vitamin D3] Digoxin [Digitek] 125 mcg PO DAILY 08/21/19 Glimepiride [Amaryl] 2 mg PO DAILY 08/21/19 Hydralazine HCl 100 mg PO TID 08/21/19 Isosorbide Mononitrate [Isosorbide 30 mg PO DAILY 08/21/19 Mononitrate ER] Levothyroxine Sodium 125 mcg PO DAILY 08/21/19 Lisinopril 20 mg PO DAILY 08/21/19 Metoprolol Tartrate 50 mg PO BID 08/21/19 - Family History Paternal - - Patient's father at the age of 56 with a history of myocardial infarction. The patient's mother at the age of 56 with history of breast cancer. Smoking Status: Never smoker Tobacco Use: Non-smoker Review of Systems Constitutional: Denies: Chills, Fever, Weight Change Eyes: Denies: Pain, Vision Change HEENT: Denies: Difficulty Hearing, Difficulty Swallowing, Sinus Congestion Cardiovascular: Denies: Chest Pain, Palpitations Respiratory: Denies: Cough, Shortness of Breath Gastrointestinal: Denies: Diarrhea, Nausea, Vomiting Genitourinary: Denies: Dysuria, Hematuria Endocrine: Denies: Heat/ Cold Intolerance, Polydipsia, Polyuria Hematologic/ Lymphatic: Denies: Easy Bruising, Easy Bleeding - Physical Exam Vital Signs Temp Pulse Resp BP 97.1 F L 57 L 18 186/71 H 09/11/19 10:54 09/11/19 10:54 09/11/19 10:54 09/11/19 10:54 General: Alert, Oriented x3, Cooperative, No apparent distress, Well developed, Well nourished HEENT: Atraumatic, PERRLA, EOMI, Normocephalic Oral: Moist Mucosa Neck: No JVD Lungs: Normal air movement Abdomen: Non-Distended Extremities: No clubbing, No cyanosis, No Calf Tenderness, - - Swelling and edema persist in the lower extremities bilaterally, particularly in the right lower extremity. However, there seems to be improvement. Circumference measurements are documented elsewhere. The large ulceration on the right anterior tibial surface is markedly improved. It is generally pink and healthy in appearance, with a small to moderate amount of bioburden. There are islands and areas of new epithelialization. There is no sign of infection or cellulitis. Ulcer dimensions are documented elsewhere. Skin: No rashes Wound Measurements and Assessment WC - Nurse 1 - General Ulcer Measurement Start: 08/28/19 11:00 Freq: Status: Active Protocol: Activity Type Activity Date Activity User E-Sign Co-Sign Detail Recorded Client Recorded Date Recorded By Document 09/11/19 10:54 AN [id number] 09/11/19 11:17 AN 09/11/19 10:54 Wound Center Nurse 1 [Ulcer Assessment] 1-right sinclair -Current Size (cm) - Length 10.8 -Current Size (cm) - Width 7.5 -Current Size (cm) - Depth 0.1 -Total Square Cm 81.00 -Photo Taken No -Classification - Thickness Full Thickness without Exposed Support Structure -Exudate Amt Large -Exudate Type Serosanguineous -Wound Margin Distinct, Outline Attached -Granulation Amt Large (67-100%) -Granulation Quality Red -Slough/Fibrin Yes -Necrosis Amt Small (1-33%) -Necrotic Tissue Type Adherent Slough -Texture (Ileana-wound Skin Appearance) Assessed, Localized Edema ,Scarring -Moisture (Ileana-wound Skin Appearance Assessed, ) Maceration -Color (Ileana-wound Skin Appearance) Assessed, Erythema -Temperature (Ileana-wound Skin No Abnormality Appearance) (Pt Warm) -Tenderness on Palpation (Ileana-wound Yes Skin Appearance) -Ulcer Cleansing soap and water -Foul Odor after Cleansing No -Anesthetic Used 4% Lidocaine Solution [Edema Assessment] -Right Calf (cm) 39 -Right Ankle (cm) 30.8 -Left Ankle (cm) 29 -Left Foot (cm) 38 WC - Nurse 2 - General Ulcer CM Notes Start: 08/28/19 11:00 Freq: Status: Active Protocol: Activity Type Activity Date Activity User E-Sign Co-Sign Detail Recorded Client Recorded Date Recorded By Document 09/11/19 11:46 MW [id number] 09/11/19 11:48 MW 09/11/19 11:46 Wound Center Nurse 2 [Procedure/Treatment] 1-right sinclair -Time 11:46 -Correct Patient Yes -Correct Side, Site, Position Yes -Correct Procedure Yes -Procedure Performed Yes -Type of Procedure Debridement -Clinical Debridement Subcutaneous -Post Debridement Size (cm) - Length 11.0 -Post Debridement Size (cm) - Width 9.5 -Post Debridement Size (cm) - Depth 0.1 -Total Square Cm 104.50 -Wound/Ulcer Outcome Not Healed -Ulcer Cleansing Rinsed/ Irrigated with Saline -Foul Odor after Cleansing No -Bioengineered Tissue No -Bleeding Controlled with Pressure -Offloading No -Treatment Response Procedure Tolerated Well [See Physician Procedure note for Specifics] Pain Scale: 0-10 Numeric [Pain] -Is Patient Pain Free? Yes Neurological: Cranial nerves II-XII grossly intact, Neuro grossly intact Psych/Mental Status: Normal Affect, Appropriate, Alert and oriented to time, place, person, mood and affect Debridement Note Post-Debridement Measurements/Treatment WC - Nurse 2 - General Ulcer CM Notes Start: 08/28/19 11:00 Freq: Status: Active Protocol: Activity Type Activity Date Activity User E-Sign Co-Sign Detail Recorded Client Recorded Date Recorded By Document 08/28/19 11:23 AN [id number] 08/28/19 11:27 AN Document 09/04/19 12:03 JF [id number] 09/04/19 12:04 JF Document 09/11/19 11:46 MW [id number] 09/11/19 11:48 MW 08/28/19 09/04/19 09/11/19 11:23 12:03 11:46 Wound Center Nurse 2 1-right sinclair -Time 11:24 11:46 -Correct Patient Yes No Yes -Correct Side, Site, Position Yes No Yes -Correct Procedure Yes No Yes -Procedure Performed Yes No Yes -Type of Procedure Debridement Debridement -Clinical Debridement Subcutaneous Subcutaneous -Post Debridement Size (cm) - Length 11.3 11.0 -Post Debridement Size (cm) - Width 8.7 9.5 -Post Debridement Size (cm) - Depth 0.1 0.1 -Total Square Cm 98.31 104.50 -Wound/Ulcer Outcome Not Healed Not Healed Not Healed -Ulcer Cleansing Rinsed/ Rinsed/ Irrigated with Irrigated with Saline Saline -Foul Odor after Cleansing No No -Bioengineered Tissue No No -Bleeding Controlled with Pressure Pressure -Offloading No No -Treatment Response Procedure Procedure Tolerated Well Tolerated Well Pain Scale: 0-10 Numeric Is Patient Pain Free? Yes Yes Yes Laterality: Right - Anterior tibial surface Type of Debridement: Excisional debridement Anesthesia Used: 5% Lidocaine Gel Depth: Down to and including healthy tissue, in the subcutaneous layer Percentage of wound debrided: 100 Instrument Used: 7mm curette Tissue Removed: Bioburden Severity: Fat Layer Exposed Amount of bleeding with debridement: Mild Bleeding Controlled with: Compression and gauze Patient tolerated procedure well Assessment/Plan Active Problems Leg swelling (Chronic) Edema of both legs (Chronic) Venous hypertension, chronic, with ulcer (Chronic) Venous stasis ulcer (Chronic) Lymphedema (Chronic) Obesity (BMI 30.0-34.9) (Chronic) Debility (Chronic) Dependent edema (Chronic) Assessment: This is a 79-year-old mildly obese female with multiple pre-existing medical conditions. These include, but are not limited to, diabetes mellitus, coronary artery disease, hyperlipidemia, hypertension, hypothyroidism, renal insufficiency, etc. She has significant swelling, edema, and lymphedema in the lower extremities bilaterally, with an associated open ulceration on the right anterior tibial surface. Her presenting symptoms and manifestations appear to be related to lifestyle factors. She is sedentary, and sits for long periods each day. Furthermore, the patient sleeps in an upright position. She is mildly obese, and not active. It appears as though these lifestyle factors have resulted in significant swelling, edema, and lymphedema in the patient's lower extremities, which have more recently resulted in the development of an ulceration on the right anterior tibial surface. Plan: The patient has been advised to elevate her lower extremities as much as possible. The means by which this is to be accomplished has been discussed in detail with the patient and with her daughter, who was at the bedside. Patient's legs are to be elevated to heart level, or higher. This is to be accomplished as much as possible, even during daytime hours. The patient has been advised to sleep on a flat mattress at night. Activity has been encouraged, though the patient is somewhat limited by her physical status. She has been urged to refrain from prolonged, idle standing and sitting. Weight loss has been recommended. We are to continue compression to the lower extremities by means of 3M 2 layer compression wraps bilaterally. We are to use Fibracol topically to the large ulceration on the right anterior tibial surface. These compression wraps are to be changed twice weekly. This compression has been tolerated well thus far. The patient underwent laboratory testing, performed at [facility], the results of which are as follows: White blood count 8.6, hemoglobin 9.4, hematocrit 28.2, platelets 248,000, sodium 142, potassium 5.1, chloride 110, glucose 120, BUN 47, creatinine 2, calcium 9.5, total protein 6.4, hemoglobin A1c 6.4. A noninvasive lower extremity arterial study was ordered, but was not performed as scheduled due to insurance issues. However, the patient has been tolerating compression wraps thus far, without any adverse consequences. Patient has been advised to optimize her nutritional intake. Optimization of the patient's glycemic control has also been recommended. It is anticipated that the patient will be transitioned to graduated compression stockings or Velcro compression garments for long-term use. Ultimately, mechanical, pneumatic compression pumps may be considered. Patient will return in 1 week for reassessment. Influenza vaccine was not administered today. Patient is not a smoker. The patient is 5 feet 3 inches tall. She weighs 180 pounds. Her BMI is 31.8, which places her in a class I obesity category. Weight loss has been recommended, in collaboration wi th her primary care physician in this regard has been advised.
[2019-09-14 11:23] VITALS: BP 161/79; PULSE 55; RESP 18; TEMP 36.4; BMI 31.8
[2019-09-18 11:22] VITALS: BP 201/76; PULSE 54; RESP 20; TEMP 36.3; BMI 31.8
--- NOTE | 2019-09-18 12:18 | PCM.WC.HP ---
(1) Leg swelling Status: Chronic Current Visit: Yes Code(s): M79.89 - Other specified soft tissue disorders (2) Edema of both legs Status: Chronic Current Visit: Yes Code(s): R60.0 - Localized edema (3) Venous hypertension, chronic, with ulcer Status: Chronic Current Visit: Yes Code(s): I87.319 - Chronic venous hypertension (idiopathic) with ulcer of unspecified lower extremity; L97.909 - Non-pressure chronic ulcer of unspecified part of unspecified lower leg with unspecified severity (4) Venous stasis ulcer Status: Chronic Current Visit: Yes Qualifiers: Venous stasis ulcer site: calf Varicose vein presence: without varicose veins Laterality: right Code(s): I83.009 - Varicose veins of unspecified lower extremity with ulcer of unspecified site; L97.909 - Non-pressure chronic ulcer of unspecified part of unspecified lower leg with unspecified severity (5) Lymphedema Status: Chronic Current Visit: Yes Code(s): I89.0 - Lymphedema, not elsewhere classified (6) Obesity (BMI 30.0-34.9) Status: Chronic Current Visit: Yes Code(s): E66.9 - Obesity, unspecified (7) CAD (coronary artery disease) Status: Chronic Current Visit: No Code(s): I25.10 - Atherosclerotic heart disease of [place] coronary artery without angina pectoris (8) Diabetes mellitus Status: Chronic Current Visit: No Code(s): E11.9 - Type 2 diabetes mellitus without complications (9) Hypertension Status: Chronic Current Visit: No Code(s): I10 - Essential (primary) hypertension (10) History of [place] (myocardial infarction) Status: Chronic Current Visit: No Code(s): I25.2 - Old myocardial infarction (11) Hypothyroidism Status: Chronic Current Visit: No Code(s): E03.9 - Hypothyroidism, unspecified (12) Renal failure Status: Chronic Current Visit: No Code(s): N19 - Unspecified kidney failure (13) Hyperlipidemia Status: Chronic Current Visit: No Code(s): E78.5 - Hyperlipidemia, unspecified (14) Debility Status: Chronic Current Visit: Yes Code(s): R53.81 - Other malaise (15) Dependent edema Status: Chronic Current Visit: Yes Code(s): R60.9 - Edema, unspecified History of Present Illness Date of Service: 09/18/19 Chief Complaint: Severe swelling, edema, and lymphedema in the lower extremities bilaterally, with ulceration of the right anterior tibial surface History of Wound: This is a 79-year-old female who presented with severe swelling, edema, and lymphedema in the lower extremities bilaterally. In addition, she has an ulceration on the right anterior tibial surface, said to be present for approximately 6 weeks. It initially occurred approximately 6 weeks prior to admission, having developed spontaneously. Initially, according to the patient, the area became blistered, and subsequently opened to form an ulceration. Patient is not active. She spends long hours each day sitting idlely. She sleeps in a chair. When ambulatory, she requires the use of a cane or walker. She is mildly obese. Past Medical History Past Medical History: Chronic Problems Leg swelling (Chronic) Edema of both legs (Chronic) Venous hypertension, chronic, with ulcer (Chronic) Venous stasis ulcer (Chronic) Lymphedema (Chronic) Obesity (BMI 30.0-34.9) (Chronic) CAD (coronary artery disease) (Chronic) Diabetes mellitus (Chronic) Hypertension (Chronic) History of [place] (myocardial infarction) (Chronic) Hypothyroidism (Chronic) Renal failure (Chronic) Hyperlipidemia (Chronic) Debility (Chronic) Dependent edema (Chronic) Surgical History: - - Patient is undergone partial hysterectomy in the past. She is also undergone cholecystectomy. Coronary revascularization was performed approximately 6 years ago. The patient is a G3, P3 Ab0. Allergies/Adverse Reactions: Allergies indomethacin [From Indocin] Allergy (Verified 08/21/19 11:29) Vomiting Home Medications: Ambulatory Orders Medication Instructions Recorded Aspirin [Aspir 81] 81 mg PO DAILY 08/21/19 Atorvastatin Calcium 80 mg PO DAILY 08/21/19 Chlorthalidone 50 mg PO DAILY 08/21/19 Cholecalciferol (Vitamin D3) 2,000 unit PO DAILY 08/21/19 [Vitamin D3] Digoxin [Digitek] 125 mcg PO DAILY 08/21/19 Glimepiride [Amaryl] 2 mg PO DAILY 08/21/19 Hydralazine HCl 100 mg PO TID 08/21/19 Isosorbide Mononitrate [Isosorbide 30 mg PO DAILY 08/21/19 Mononitrate ER] Levothyroxine Sodium 125 mcg PO DAILY 08/21/19 Lisinopril 20 mg PO DAILY 08/21/19 Metoprolol Tartrate 50 mg PO BID 08/21/19 - Family History Paternal - - Patient's father at the age of 56 with a history of myocardial infarction. The patient's mother at the age of 56 with history of breast cancer. Smoking Status: Never smoker Tobacco Use: Non-smoker Review of Systems Constitutional: Denies: Chills, Fever, Weight Change Eyes: Denies: Pain, Vision Change HEENT: Denies: Difficulty Hearing, Difficulty Swallowing, Sinus Congestion Cardiovascular: Denies: Chest Pain, Palpitations Respiratory: Denies: Cough, Shortness of Breath Gastrointestinal: Denies: Diarrhea, Nausea, Vomiting Genitourinary: Denies: Dysuria, Hematuria Endocrine: Denies: Heat/ Cold Intolerance, Polydipsia, Polyuria Hematologic/ Lymphatic: Denies: Easy Bruising, Easy Bleeding - Physical Exam Vital Signs Temp Pulse Resp BP 97.3 F L 54 L 20 H 201/76 H 09/18/19 11:22 09/18/19 11:22 09/18/19 11:22 09/18/19 11:22 General: Alert, Oriented x3, Cooperative, No apparent distress, Well developed, Well nourished HEENT: Atraumatic, PERRLA, EOMI, Normocephalic Oral: Moist Mucosa Neck: No JVD Lungs: Normal air movement Abdomen: Non-Distended, Obese Extremities: No clubbing, No cyanosis, No Calf Tenderness, - - Mild swelling and edema persists in the patient's lower extremities bilaterally. A large ulceration persists on the right anterior tibial surface. However, it is smaller in size. There is evidence of epithelialization. Dimensions are documented elsewhere. The base of the ulceration is pink and healthy in appearance, and appears well vascularized. There is a mild amount of bioburden and nonviable tissue. There is no sign of infection or cellulitis. Skin: No rashes Wound Measurements and Assessment WC - Nurse 1 - General Ulcer Measurement Start: 08/28/19 11:00 Freq: Status: Active Protocol: Activity Type Activity Date Activity User E-Sign Co-Sign Detail Recorded Client Recorded Date Recorded By Document 09/18/19 11:22 DL [id number] 09/18/19 11:30 DL 09/18/19 11:22 Wound Center Nurse 1 [Ulcer Assessment] 1-right sinclair -Current Size (cm) - Length 11 -Current Size (cm) - Width 8.2 -Current Size (cm) - Depth 0.1 -Total Square Cm 90.2 -Photo Taken No -Exudate Amt Large -Exudate Type Sanguineous -Wound Margin Distinct, Outline Attached -Granulation Amt Large (67-100%) -Granulation Quality [place],Red -Necrosis Amt Small (1-33%) -Necrotic Tissue Type Adherent Slough -Texture (Ileana-wound Skin Appearance) Scarring -Moisture (Ileana-wound Skin Appearance No Abnormality ) -Color (Ileana-wound Skin Appearance) Erythema,Rubor -Tenderness on Palpation (Ileana-wound No Skin Appearance) -Ulcer Cleansing Wound Cleanser -Foul Odor after Cleansing No -Anesthetic Used 4% Lidocaine Solution [Edema Assessment] -Right Calf (cm) 38 -Right Ankle (cm) 29.5 -Left Calf (cm) 43.1 -Left Ankle (cm) 29.6 WC - Nurse 2 - General Ulcer CM Notes Start: 08/28/19 11:00 Freq: Status: Active Protocol: Activity Type Activity Date Activity User E-Sign Co-Sign Detail Recorded Client Recorded Date Recorded By Document 09/18/19 12:08 AN [id number] 09/18/19 12:14 AN 09/18/19 12:08 Wound Center Nurse 2 [Procedure/Treatment] 1-right sinclair -Time 12:10 -Correct Patient Yes -Correct Side, Site, Position Yes -Correct Procedure Yes -Procedure Performed Yes -Type of Procedure Debridement -Clinical Debridement Subcutaneous -Post Debridement Size (cm) - Length 11.2 -Post Debridement Size (cm) - Width 8.3 -Post Debridement Size (cm) - Depth 0.1 -Total Square Cm 92.96 -Wound/Ulcer Outcome Not Healed -Ulcer Cleansing Rinsed/ Irrigated with Saline -Foul Odor after Cleansing No -Bioengineered Tissue No -Bleeding Controlled with Pressure -Treatment Response Procedure Tolerated Well [See Physician Procedure note for Specifics] Pain Scale: 0-10 Numeric [Pain] -Is Patient Pain Free? Yes Neurological: Cranial nerves II-XII grossly intact, Neuro grossly intact Psych/Mental Status: Normal Affect, Appropriate, Alert and oriented to time, place, person, mood and affect Debridement Note Post-Debridement Measurements/Treatment WC - Nurse 2 - General Ulcer CM Notes Start: 08/28/19 11:00 Freq: Status: Active Protocol: Activity Type Activity Date Activity User E-Sign Co-Sign Detail Recorded Client Recorded Date Recorded By Document 08/28/19 11:23 AN [id number] 08/28/19 11:27 AN Document 09/04/19 12:03 JF [id number] 09/04/19 12:04 JF Document 09/11/19 11:46 MW [id number] 09/11/19 11:48 MW Document 09/18/19 12:08 AN [id number] 09/18/19 12:14 AN 08/28/19 09/04/19 09/11/19 11:23 12:03 11:46 Wound Center Nurse 2 1-right sinclair -Time 11:24 11:46 -Correct Patient Yes No Yes -Correct Side, Site, Position Yes No Yes -Correct Procedure Yes No Yes -Procedure Performed Yes No Yes -Type of Procedure Debridement Debridement -Clinical Debridement Subcutaneous Subcutaneous -Post Debridement Size (cm) - Length 11.3 11.0 -Post Debridement Size (cm) - Width 8.7 9.5 -Post Debridement Size (cm) - Depth 0.1 0.1 -Total Square Cm 98.31 104.50 -Wound/Ulcer Outcome Not Healed Not Healed Not Healed -Ulcer Cleansing Rinsed/ Rinsed/ Irrigated with Irrigated with Saline Saline -Foul Odor after Cleansing No No -Bioengineered Tissue No No -Bleeding Controlled with Pressure Pressure -Offloading No No -Treatment Response Procedure Procedure Tolerated Well Tolerated Well Pain Scale: 0-10 Numeric Is Patient Pain Free? Yes Yes Yes 09/18/19 12:08 Wound Center Nurse 2 1-right sinclair -Time 12:10 -Correct Patient Yes -Correct Side, Site, Position Yes -Correct Procedure Yes -Procedure Performed Yes -Type of Procedure Debridement -Clinical Debridement Subcutaneous -Post Debridement Size (cm) - Length 11.2 -Post Debridement Size (cm) - Width 8.3 -Post Debridement Size (cm) - Depth 0.1 -Total Square Cm 92.96 -Wound/Ulcer Outcome Not Healed -Ulcer Cleansing Rinsed/ Irrigated with Saline -Foul Odor after Cleansing No -Bioengineered Tissue No -Bleeding Controlled with Pressure -Offloading -Treatment Response Procedure Tolerated Well Pain Scale: 0-10 Numeric Is Patient Pain Free? Yes Laterality: Right - Anterior tibial surface Type of Debridement: Excisional debridement Anesthesia Used: 5% Lidocaine Gel Depth: Down to and including healthy tissue, in the subcutaneous layer Percentage of wound debrided: 100 Instrument Used: 5mm curette Tissue Removed: Bioburden and nonviable tissue Severity: Fat Layer Exposed Amount of bleeding with debridement: Mild Bleeding Controlled with: Compression and gauze Patient tolerated procedure well Assessment/Plan Active Problems Leg swelling (Chronic) Edema of both legs (Chronic) Venous hypertension, chronic, with ulcer (Chronic) Venous stasis ulcer (Chronic) Lymphedema (Chronic) Obesity (BMI 30.0-34.9) (Chronic) Debility (Chronic) Dependent edema (Chronic) Assessment: This is a 79-year-old mildly obese female with multiple pre-existing medical conditions. These include, but are not limited to, diabetes mellitus, coronary artery disease, hyperlipidemia, hypertension, hypothyroidism, renal insufficiency, etc. She has significant swelling, edema, and lymphedema in the lower extremities bilaterally, with an associated open ulceration on the right anterior tibial surface. Her presenting symptoms and manifestations appear to be related to lifestyle factors. She is sedentary, and sits for long periods each day. Furthermore, the patient sleeps in an upright position. She is mildly obese, and not active. It appears as though these lifestyle factors have resulted in significant swelling, edema, and lymphedema in the patient's lower extremities, which have more recently resulted in the development of an ulceration on the right anterior tibial surface. Plan: The patient has been advised to elevate her lower extremities as much as possible. The means by which this is to be accomplished has been discussed in detail with the patient and with her daughter, who was at the bedside. The patient's legs are to be elevated to heart level, or higher. This is to be accomplished as much as possible, even during daytime hours. The patient has been advised to sleep on a flat mattress at night. Activity has been encouraged, though the patient is somewhat limited by her physical status. She has been urged to refrain from prolonged, idle standing and sitting. Weight loss has been recommended. We are to continue compression to the lower extremities by means of 3M 2 layer compression wraps bilaterally. We are to use Fibracol topically to the large ulceration on the right anterior tibial surface. These compression wraps are to be changed twice weekly. This compression has been tolerated well thus far. The patient underwent laboratory testing, performed at [facility], the results of which are as follows: White blood count 8.6, hemoglobin 9.4, hematocrit 28.2, platelets 248,000, sodium 142, potassium 5.1, chloride 110, glucose 120, BUN 47, creatinine 2, calcium 9.5, total protein 6.4, hemoglobin A1c 6.4. A noninvasive lower extremity arterial study was ordered, but was not performed as scheduled due to insurance issues. However, the patient has been tolerating compression wraps thus far, without any adverse consequences. Patient has been advised to optimize her nutritional intake. Optimization of the patient's glycemic control has also been recommended. It is anticipated that the patient will be transitioned to graduated compression stockings or Velcro compression garments for long-term use. We are to seek approval for mechanical, pneumatic compression pumps. Patient will return in 1 week for reassessment. Influenza vaccine was not administered today. Patient is not a smoker. The patient is 5 feet 3 inches tall. She weighs 180 pounds. Her BMI is 31.8, which places her in a class I obesity category. Weight loss has been recommended, in collaboration with her primary care physician in this regard has been advised.
[2019-09-20 11:54] VITALS: BMI 31.8
[2019-09-25 10:49] VITALS: RESP 18; TEMP 36.5; BMI 31.8
--- NOTE | 2019-09-25 11:31 | PCM.WC.HP ---
(1) Leg swelling Status: Chronic Current Visit: Yes Code(s): M79.89 - Other specified soft tissue disorders (2) Edema of both legs Status: Chronic Current Visit: Yes Code(s): R60.0 - Localized edema (3) Venous hypertension, chronic, with ulcer Status: Chronic Current Visit: Yes Code(s): I87.319 - Chronic venous hypertension (idiopathic) with ulcer of unspecified lower extremity; L97.909 - Non-pressure chronic ulcer of unspecified part of unspecified lower leg with unspecified severity (4) Venous stasis ulcer Status: Chronic Current Visit: Yes Qualifiers: Venous stasis ulcer site: calf Varicose vein presence: without varicose veins Laterality: right Non-pressure ulcer stage: with fat layer exposed Qualified Code(s): I87.2 - Venous insufficiency (chronic) (peripheral); L97.212 - Non-pressure chronic ulcer of right calf with fat layer exposed Code(s): I83.009 - Varicose veins of unspecified lower extremity with ulcer of unspecified site; L97.909 - Non-pressure chronic ulcer of unspecified part of unspecified lower leg with unspecified severity (5) Lymphedema Status: Chronic Current Visit: Yes Code(s): I89.0 - Lymphedema, not elsewhere classified (6) Obesity (BMI 30.0-34.9) Status: Chronic Current Visit: Yes Code(s): E66.9 - Obesity, unspecified (7) CAD (coronary artery disease) Status: Chronic Current Visit: No Code(s): I25.10 - Atherosclerotic heart disease of [place] coronary artery without angina pectoris (8) Diabetes mellitus Status: Chronic Current Visit: Yes Qualifiers: Diabetes mellitus type: type 2 Code(s): E11.9 - Type 2 diabetes mellitus without complications (9) Hypertension Status: Chronic Current Visit: No Code(s): I10 - Essential (primary) hypertension (10) History of PR (myocardial infarction) Status: Chronic Current Visit: No Code(s): I25.2 - Old myocardial infarction (11) Hypothyroidism Status: Chronic Current Visit: No Code(s): E03.9 - Hypothyroidism, unspecified (12) Renal failure Status: Chronic Current Visit: No Code(s): N19 - Unspecified kidney failure (13) Hyperlipidemia Status: Chronic Current Visit: No Code(s): E78.5 - Hyperlipidemia, unspecified (14) Debility Status: Chronic Current Visit: Yes Code(s): R53.81 - Other malaise (15) Dependent edema Status: Chronic Current Visit: Yes Code(s): R60.9 - Edema, unspecified History of Present Illness Date of Service: 09/25/19 Chief Complaint: Severe swelling, edema, and lymphedema in the lower extremities bilaterally, with ulceration of the right anterior tibial surface History of Wound: This is a 79-year-old female who presented with severe swelling, edema, and lymphedema in the lower extremities bilaterally. In addition, she has an ulceration on the right anterior tibial surface, said to be present for approximately 6 weeks. It initially occurred approximately 6 weeks prior to admission, having developed spontaneously. Initially, according to the patient, the area became blistered, and subsequently opened to form an ulceration. Patient is not active. She spends long hours each day sitting idlely. She sleeps in a chair. When ambulatory, she requires the use of a cane or walker. She is mildly obese. Past Medical History Past Medical History: Chronic Problems Leg swelling (Chronic) Edema of both legs (Chronic) Venous hypertension, chronic, with ulcer (Chronic) Venous stasis ulcer (Chronic) Lymphedema (Chronic) Obesity (BMI 30.0-34.9) (Chronic) CAD (coronary artery disease) (Chronic) Diabetes mellitus (Chronic) Hypertension (Chronic) History of PR (myocardial infarction) (Chronic) Hypothyroidism (Chronic) Renal failure (Chronic) Hyperlipidemia (Chronic) Debility (Chronic) Dependent edema (Chronic) Surgical History: - - Patient is undergone partial hysterectomy in the past. She is also undergone cholecystectomy. Coronary revascularization was performed approximately 6 years ago. The patient is a G3, P3 Ab0. Allergies/Adverse Reactions: Allergies indomethacin [From Indocin] Allergy (Verified 08/21/19 11:29) Vomiting Home Medications: Ambulatory Orders Medication Instructions Recorded Aspirin [Aspir 81] 81 mg PO DAILY 08/21/19 Atorvastatin Calcium 80 mg PO DAILY 08/21/19 Chlorthalidone 50 mg PO DAILY 08/21/19 Cholecalciferol (Vitamin D3) 2,000 unit PO DAILY 08/21/19 [Vitamin D3] Digoxin [Digitek] 125 mcg PO DAILY 08/21/19 Glimepiride [Amaryl] 2 mg PO DAILY 08/21/19 Hydralazine HCl 100 mg PO TID 08/21/19 Isosorbide Mononitrate [Isosorbide 30 mg PO DAILY 08/21/19 Mononitrate ER] Levothyroxine Sodium 125 mcg PO DAILY 08/21/19 Lisinopril 20 mg PO DAILY 08/21/19 Metoprolol Tartrate 50 mg PO BID 08/21/19 - Family History Paternal - - Patient's father at the age of 56 with a history of myocardial infarction. The patient's mother at the age of 56 with history of breast cancer. Smoking Status: Never smoker Tobacco Use: Non-smoker Review of Systems Constitutional: Denies: Chills, Fever, Weight Change Eyes: Denies: Pain, Vision Change HEENT: Denies: Difficulty Hearing, Difficulty Swallowing, Sinus Congestion Cardiovascular: Denies: Chest Pain, Palpitations Respiratory: Denies: Cough, Shortness of Breath Gastrointestinal: Denies: Diarrhea, Nausea, Vomiting Genitourinary: Denies: Dysuria, Hematuria Endocrine: Denies: Heat/ Cold Intolerance, Polydipsia, Polyuria Hematologic/ Lymphatic: Denies: Easy Bruising, Easy Bleeding - Physical Exam Vital Signs Temp Pulse Resp BP 97.7 F L 54 L 18 201/76 H 09/25/19 10:49 09/18/19 11:22 09/25/19 10:49 09/18/19 11:22 General: Alert, Oriented x3, Cooperative, No apparent distress, Well developed, Well nourished HEENT: Atraumatic, PERRLA, EOMI, Normocephalic Oral: Moist Mucosa Neck: No JVD Lungs: Normal air movement Abdomen: Non-Distended, Obese Extremities: No clubbing, No cyanosis, No Calf Tenderness, - - Swelling, edema, and lymphedema persist in the lower extremities bilaterally. The ulceration on the right anterior tibial surface is markedly improved. There is evidence of significant peripheral epithelialization. The base of the ulceration is generally pink and healthy, with good granulation tissue. There is a mild amount of bioburden. Dimensions are documented elsewhere. Skin: No rashes Wound Measurements and Assessment WC - Nurse 1 - General Ulcer Measurement Start: 08/28/19 11:00 Freq: Status: Active Protocol: Activity Type Activity Date Activity User E-Sign Co-Sign Detail Recorded Client Recorded Date Recorded By Document 09/25/19 10:49 IA [id number] 09/25/19 10:59 IA 09/25/19 10:49 Wound Center Nurse 1 [Ulcer Assessment] 1-right sinlcair -Current Size (cm) - Length 10.3 -Current Size (cm) - Width 7.2 -Current Size (cm) - Depth 0.1 -Total Square Cm 74.16 -Exudate Amt Medium -Exudate Type Sanguineous -Wound Margin Flat & Intact -Granulation Amt Large (67-100%) -Granulation Quality [place],Red -Slough/Fibrin No -Necrosis Amt None Present (0 %) -Texture (Ileana-wound Skin Appearance) Assessed, Localized Edema -Moisture (Ileana-wound Skin Appearance Assessed, ) Maceration, Weeping -Color (Ileana-wound Skin Appearance) Assessed, Erythema -Temperature (Ileana-wound Skin No Abnormality Appearance) (Pt Warm) -Tenderness on Palpation (Ileana-wound No Skin Appearance) -Ulcer Cleansing Wound Cleanser -Foul Odor after Cleansing No -Anesthetic Used 4% Lidocaine Solution [Edema Assessment] -Right Calf (cm) 39.2 -Right Ankle (cm) 30.1 -Left Calf (cm) 44.1 -Left Ankle (cm) 31.1 WC - Nurse 2 - General Ulcer CM Notes Start: 08/28/19 11:00 Freq: Status: Active Protocol: Activity Type Activity Date Activity User E-Sign Co-Sign Detail Recorded Client Recorded Date Recorded By Document 09/25/19 11:13 [id number] 09/25/19 11:26 09/25/19 11:13 Wound Center Nurse 2 [Procedure/Treatment] 1-right sinclair -Time 11:26 -Correct Patient Yes -Correct Side, Site, Position Yes -Correct Procedure Yes -Procedure Performed Yes -Type of Procedure Debridement -Clinical Debridement Subcutaneous -Post Debridement Size (cm) - Length 10.3 -Post Debridement Size (cm) - Width 7.2 -Post Debridement Size (cm) - Depth 0.1 -Total Square Cm 74.16 -Wound/Ulcer Outcome Not Healed -Ulcer Cleansing Not Cleansed -Foul Odor after Cleansing No -Bioengineered Tissue No -Bleeding Controlled with NA -Offloading No -Treatment Response Procedure Tolerated Well [See Physician Procedure note for Specifics] Pain Scale: 0-10 Numeric [Pain] -Is Patient Pain Free? Yes Neurological: Cranial nerves II-XII grossly intact, Neuro grossly intact Psych/Mental Status: Normal Affect, Appropriate, Alert and oriented to time, place, person, mood and affect Debridement Note Post-Debridement Measurements/Treatment WC - Nurse 2 - General Ulcer CM Notes Start: 08/28/19 11:00 Freq: Status: Active Protocol: Activity Type Activity Date Activity User E-Sign Co-Sign Detail Recorded Client Recorded Date Recorded By Document 08/28/19 11:23 AN [id number] 08/28/19 11:27 AN Document 09/04/19 12:03 JF [id number] 09/04/19 12:04 JF Document 09/11/19 11:46 MW [id number] 09/11/19 11:48 MW Document 09/18/19 12:08 AN [id number] 09/18/19 12:14 AN Document 09/25/19 11:13 CS [id number] 09/25/19 11:26 CS 08/28/19 09/04/19 09/11/19 11:23 12:03 11:46 Wound Center Nurse 2 1-right sinclair -Time 11:24 11:46 -Correct Patient Yes No Yes -Correct Side, Site, Position Yes No Yes -Correct Procedure Yes No Yes -Procedure Performed Yes No Yes -Type of Procedure Debridement Debridement -Clinical Debridement Subcutaneous Subcutaneous -Post Debridement Size (cm) - Length 11.3 11.0 -Post Debridement Size (cm) - Width 8.7 9.5 -Post Debridement Size (cm) - Depth 0.1 0.1 -Total Square Cm 98.31 104.50 -Wound/Ulcer Outcome Not Healed Not Healed Not Healed -Ulcer Cleansing Rinsed/ Rinsed/ Irrigated with Irrigated with Saline Saline -Foul Odor after Cleansing No No -Bioengineered Tissue No No -Bleeding Controlled with Pressure Pressure -Offloading No No -Treatment Response Procedure Procedure Tolerated Well Tolerated Well Pain Scale: 0-10 Numeric Is Patient Pain Free? Yes Yes Yes 09/18/19 09/25/19 12:08 11:13 Wound Center Nurse 2 1-right sinclair -Time 12:10 11:26 -Correct Patient Yes Yes -Correct Side, Site, Position Yes Yes -Correct Procedure Yes Yes -Procedure Performed Yes Yes -Type of Procedure Debridement Debridement -Clinical Debridement Subcutaneous Subcutaneous -Post Debridement Size (cm) - Length 11.2 10.3 -Post Debridement Size (cm) - Width 8.3 7.2 -Post Debridement Size (cm) - Depth 0.1 0.1 -Total Square Cm 92.96 74.16 -Wound/Ulcer Outcome Not Healed Not Healed -Ulcer Cleansing Rinsed/ Not Cleansed Irrigated with Saline -Foul Odor after Cleansing No No -Bioengineered Tissue No No -Bleeding Controlled with Pressure NA -Offloading No -Treatment Response Procedure Procedure Tolerated Well Tolerated Well Pain Scale: 0-10 Numeric Is Patient Pain Free? Yes Yes Laterality: Right - Anterior tibial surface Type of Debridement: Excisional debridement Anesthesia Used: 5% Lidocaine Gel Depth: Down to and including healthy tissue, in the subcutaneous layer Percentage of wound debrided: 100 Instrument Used: 5mm curette Tissue Removed: Bioburden and nonviable tissue Severity: Fat Layer Exposed Amount of bleeding with debridement: Mild Bleeding Controlled with: Compression and gauze Patient tolerated procedure well Assessment/Plan Active Problems Leg swelling (Chronic) Edema of both legs (Chronic) Venous hypertension, chronic, with ulcer (Chronic) Venous stasis ulcer (Chronic) Lymphedema (Chronic) Obesity (BMI 30.0-34.9) (Chronic) Diabetes mellitus (Chronic) Debility (Chronic) Dependent edema (Chronic) Assessment: This is a 79-year-old obese female with multiple pre-existing medical conditions. These include, but are not limited to, diabetes mellitus, coronary artery disease, hyperlipidemia, hypertension, hypothyroidism, renal insufficiency, etc. She has significant swelling, edema, and lymphedema in the lower extremities bilaterally, with an associated open ulceration on the right anterior tibial surface. Her presenting symptoms and manifestations appear to be related to lifestyle factors. She is sedentary, and sits for long periods each day. Furthermore, the patient sleeps in an upright position. She is obese, and not active. It appears as though these lifestyle factors have resulted in significant swelling, edema, and lymphedema in the patient's lower extremities, which have more recently resulted in the development of an ulceration on the right anterior tibial surface. Plan: The patient has been advised to elevate her lower extremities as much as possible. The means by which this is to be accomplished has been discussed in detail with the patient and with her daughter, who was at the bedside. The patient's legs are to be elevated to heart level, or higher. This is to be accomplished as much as possible, even during daytime hours. The patient has been advised to sleep on a flat mattress at night. Activity has been encouraged, though the patient is somewhat limited by her physical status. She has been urged to refrain from prolonged, idle standing and sitting. Weight loss has been recommended. We are to continue compression to the lower extremities by means of 3M 2 layer compression wraps bilaterally. We are to use Fibracol topically to the large ulceration on the right anterior tibial surface. These compression wraps are to be changed twice weekly. This compression has been tolerated well thus far. The patient underwent laboratory testing, performed at [facility], the results of which are as follows: White blood count 8.6, hemoglobin 9.4, hematocrit 28.2, platelets 248,000, sodium 142, potassium 5.1, chloride 110, glucose 120, BUN 47, creatinine 2, calcium 9.5, total protein 6.4, hemoglobin A1c 6.4. A noninvasive lower extremity arterial study was ordered, but was not performed as scheduled due to insurance issues. However, the patient has been tolerating compression wraps thus far, without any adverse consequences. Patient has been advised to optimize her nutritional intake. Optimization of the patient's glycemic control has also been recommended. It is anticipated that the patient will be transitioned to graduated compression stockings or Velcro compression garments for long-term use. We are to seek approval for mechanical, pneumatic compression pumps. Patient will return in 1 week for reassessment. Influenza vaccine was not administered today. Patient is not a smoker. The patient is 5 feet 3 inches tall. She weighs 180 pounds. Her BMI is 31.8, which places her in a class I obesity category. Weight loss has been recommended, in collaboration with her primary care physician in this regard has been advised.
== END 2019-09-27 23:59 ==
LOC: WC 10:45
PROVIDERS: Family Provider Family Medicine; PCP Family Medicine; Visit Provider Surgery
DX: E11.622 Type 2 diabetes mellitus with other skin ulcer (principal); I87.311 Chronic venous hypertension (idiopathic) with ulcer of right lower extremity; R60.0 Localized edema; M79.89 Other specified soft tissue disorders; L97.212 Non-pressure chronic ulcer of right calf with fat layer exposed; I89.0 Lymphedema, not elsewhere classified; I25.10 Atherosclerotic heart disease of native coronary artery without angina pectoris; E66.9 Obesity, unspecified; E78.5 Hyperlipidemia, unspecified; N18.9 Chronic kidney disease, unspecified; I12.9 Hypertensive chronic kidney disease with stage 1 through stage 4 chronic kidney disease, or unspecified chronic kidney disease; E11.22 Type 2 diabetes mellitus with diabetic chronic kidney disease; E03.9 Hypothyroidism, unspecified; Z79.899 Other long term (current) drug therapy; Z79.84 Long term (current) use of oral hypoglycemic drugs; I25.2 Old myocardial infarction; Z68.31 Body mass index [BMI] 31.0-31.9, adult
CPT/HCPCS: 11042; 11045; 29580; 29581; 99212; 99213; G0463

== ENCOUNTER 2019-10-23 10:15 | Outpatient (RCR) | payer MEDICARE, SELFPAY ==
[2019-09-28 01:16] VITALS: BP 201/76; PULSE 54; RESP 18; TEMP 36.5
[2019-09-28 11:46] VITALS: BP 147/55; PULSE 71; RESP 22; TEMP 36.3; BMI 31.8
--- NOTE | 2019-10-02 12:05 | PCM.WC.HP ---
(1) Leg swelling Status: Chronic Current Visit: Yes Code(s): M79.89 - Other specified soft tissue disorders (2) Edema of both legs Status: Chronic Current Visit: Yes Code(s): R60.0 - Localized edema (3) Venous hypertension, chronic, with ulcer Status: Chronic Current Visit: Yes Code(s): I87.319 - Chronic venous hypertension (idiopathic) with ulcer of unspecified lower extremity; L97.909 - Non-pressure chronic ulcer of unspecified part of unspecified lower leg with unspecified severity (4) Venous stasis ulcer Status: Chronic Current Visit: Yes Qualifiers: Venous stasis ulcer site: calf Varicose vein presence: with varicose veins Laterality: right Non-pressure ulcer stage: with fat layer exposed Qualified Code(s): I83.012 - Varicose veins of right lower extremity with ulcer of calf; L97.212 - Non-pressure chronic ulcer of right calf with fat layer exposed Code(s): I83.009 - Varicose veins of unspecified lower extremity with ulcer of unspecified site; L97.909 - Non-pressure chronic ulcer of unspecified part of unspecified lower leg with unspecified severity (5) Lymphedema Status: Chronic Current Visit: Yes Code(s): I89.0 - Lymphedema, not elsewhere classified (6) Obesity (BMI 30.0-34.9) Status: Chronic Current Visit: Yes Code(s): E66.9 - Obesity, unspecified (7) CAD (coronary artery disease) Status: Chronic Current Visit: No Code(s): I25.10 - Atherosclerotic heart disease of [place] coronary artery without angina pectoris (8) Diabetes mellitus Status: Chronic Current Visit: No Code(s): E11.9 - Type 2 diabetes mellitus without complications (9) Hypertension Status: Chronic Current Visit: No Code(s): I10 - Essential (primary) hypertension (10) History of IA (myocardial infarction) Status: Chronic Current Visit: No Code(s): I25.2 - Old myocardial infarction (11) Hypothyroidism Status: Chronic Current Visit: No Code(s): E03.9 - Hypothyroidism, unspecified (12) Renal failure Status: Chronic Current Visit: No Code(s): N19 - Unspecified kidney failure (13) Hyperlipidemia Status: Chronic Current Visit: No Code(s): E78.5 - Hyperlipidemia, unspecified (14) Debility Status: Chronic Current Visit: Yes Code(s): R53.81 - Other malaise (15) Dependent edema Status: Chronic Current Visit: Yes Code(s): R60.9 - Edema, unspecified History of Present Illness Date of Service: 10/02/19 Chief Complaint: Severe swelling, edema, and lymphedema in the lower extremities bilaterally, with ulceration of the right anterior tibial surface History of Wound: This is a 79-year-old female who presented with severe swelling, edema, and lymphedema in the lower extremities bilaterally. In addition, she has an ulceration on the right anterior tibial surface, said to be present for approximately 6 weeks. It initially occurred approximately 6 weeks prior to admission, having developed spontaneously. Initially, according to the patient, the area became blistered, and subsequently opened to form an ulceration. Patient is not active. She spends long hours each day sitting idlely. She sleeps in a chair. When ambulatory, she requires the use of a cane or walker. She is mildly obese. Past Medical History Past Medical History: Chronic Problems Leg swelling (Chronic) Edema of both legs (Chronic) Venous hypertension, chronic, with ulcer (Chronic) Venous stasis ulcer (Chronic) Lymphedema (Chronic) Obesity (BMI 30.0-34.9) (Chronic) CAD (coronary artery disease) (Chronic) Diabetes mellitus (Chronic) Hypertension (Chronic) History of IA (myocardial infarction) (Chronic) Hypothyroidism (Chronic) Renal failure (Chronic) Hyperlipidemia (Chronic) Debility (Chronic) Dependent edema (Chronic) Surgical History: - - Patient is undergone partial hysterectomy in the past. She is also undergone cholecystectomy. Coronary revascularization was performed approximately 6 years ago. The patient is a G3, P3 Ab0. Allergies/Adverse Reactions: Allergies indomethacin [From Indocin] Allergy (Verified 08/21/19 11:29) Vomiting Home Medications: Ambulatory Orders Medication Instructions Recorded Aspirin [Aspir 81] 81 mg PO DAILY 08/21/19 Atorvastatin Calcium 80 mg PO DAILY 08/21/19 Chlorthalidone 50 mg PO DAILY 08/21/19 Cholecalciferol (Vitamin D3) 2,000 unit PO DAILY 08/21/19 [Vitamin D3] Digoxin [Digitek] 125 mcg PO DAILY 08/21/19 Glimepiride [Amaryl] 2 mg PO DAILY 08/21/19 Hydralazine HCl 100 mg PO TID 08/21/19 Isosorbide Mononitrate [Isosorbide 30 mg PO DAILY 08/21/19 Mononitrate ER] Levothyroxine Sodium 125 mcg PO DAILY 08/21/19 Lisinopril 20 mg PO DAILY 08/21/19 Metoprolol Tartrate 50 mg PO BID 08/21/19 - Family History Paternal - - Patient's father at the age of 56 with a history of myocardial infarction. The patient's mother at the age of 56 with history of breast cancer. Smoking Status: Never smoker Tobacco Use: Non-smoker Review of Systems Constitutional: Denies: Chills, Fever, Weight Change Eyes: Denies: Pain, Vision Change HEENT: Denies: Difficulty Hearing, Difficulty Swallowing, Sinus Congestion Cardiovascular: Denies: Chest Pain, Palpitations Respiratory: Denies: Cough, Shortness of Breath Gastrointestinal: Denies: Diarrhea, Nausea, Vomiting Genitourinary: Denies: Dysuria, Hematuria Endocrine: Denies: Heat/ Cold Intolerance, Polydipsia, Polyuria Hematologic/ Lymphatic: Denies: Easy Bruising, Easy Bleeding - Physical Exam Vital Signs Temp Pulse Resp BP 97.3 F L 71 22 H 147/55 H 09/28/19 11:46 09/28/19 11:46 09/28/19 11:46 09/28/19 11:46 General: Alert, Oriented x3, Cooperative, No apparent distress, Well developed, Well nourished HEENT: Atraumatic, PERRLA, EOMI, Normocephalic Oral: Moist Mucosa Neck: No JVD Lungs: Normal air movement Abdomen: Non-Distended Extremities: No clubbing, No cyanosis, No Calf Tenderness, - - Moderate swelling and edema persist in the patient's lower extremities. The ulceration on the right anterior tibial surface persists. It is highly irregular in shape. There are increasing areas of epithelialization. The base of the ulceration is pink and healthy in appearance, demonstrating healthy granulation tissue with apparent good vascularity. There is a small amount of bioburden. Dimensions are documented elsewhere. There is no sign of infection or cellulitis. Skin: No rashes Wound Measurements and Assessment WC - Nurse 2 - General Ulcer CM Notes Start: 09/28/19 11:46 Freq: Status: Active Protocol: Activity Type Activity Date Activity User E-Sign Co-Sign Detail Recorded Client Recorded Date Recorded By Document 10/02/19 11:50 JF [id number] 10/02/19 11:51 10/02/19 11:50 Wound Center Nurse 2 [Procedure/Treatment] 1-right sinclair -Time 11:50 -Correct Patient Yes -Correct Side, Site, Position Yes -Correct Procedure Yes -Procedure Performed Yes -Type of Procedure Debridement -Clinical Debridement Subcutaneous -Post Debridement Size (cm) - Length 9.6 -Post Debridement Size (cm) - Width 6.0 -Post Debridement Size (cm) - Depth 0.1 -Total Square Cm 57.60 -Wound/Ulcer Outcome Not Healed -Ulcer Cleansing Rinsed/ Irrigated with Saline -Foul Odor after Cleansing No -Bioengineered Tissue No -Bleeding Controlled with Pressure -Offloading No -Treatment Response Procedure Tolerated Well [See Physician Procedure note for Specifics] Pain Scale: 0-10 Numeric [Pain] -Is Patient Pain Free? Yes Neurological: Cranial nerves II-XII grossly intact, Neuro grossly intact Psych/Mental Status: Normal Affect, Appropriate, Alert and oriented to time, place, person, mood and affect Debridement Note Post-Debridement Measurements/Treatment WC - Nurse 2 - General Ulcer CM Notes Start: 09/28/19 11:46 Freq: Status: Active Protocol: Activity Type Activity Date Activity User E-Sign Co-Sign Detail Recorded Client Recorded Date Recorded By Document 10/02/19 11:50 JESUS MANUEL [id number] 10/02/19 11:51 10/02/19 11:50 Wound Center Nurse 2 1-right sinclair -Time 11:50 -Correct Patient Yes -Correct Side, Site, Position Yes -Correct Procedure Yes -Procedure Performed Yes -Type of Procedure Debridement -Clinical Debridement Subcutaneous -Post Debridement Size (cm) - Length 9.6 -Post Debridement Size (cm) - Width 6.0 -Post Debridement Size (cm) - Depth 0.1 -Total Square Cm 57.60 -Wound/Ulcer Outcome Not Healed -Ulcer Cleansing Rinsed/ Irrigated with Saline -Foul Odor after Cleansing No -Bioengineered Tissue No -Bleeding Controlled with Pressure -Offloading No -Treatment Response Procedure Tolerated Well Pain Scale: 0-10 Numeric Is Patient Pain Free? Yes Laterality: Right - Anterior tibial surface Type of Debridement: Excisional debridement Anesthesia Used: 5% Lidocaine Gel Depth: Down to and including healthy tissue, in the subcutaneous layer Percentage of wound debrided: 100 Instrument Used: 5mm curette Tissue Removed: Bioburden and nonviable tissue Severity: Fat Layer Exposed Amount of bleeding with debridement: Mild Bleeding Controlled with: Compression and gauze Patient tolerated procedure well Assessment/Plan Active Problems Leg swelling (Chronic) Edema of both legs (Chronic) Venous hypertension, chronic, with ulcer (Chronic) Venous stasis ulcer (Chronic) Lymphedema (Chronic) Obesity (BMI 30.0-34.9) (Chronic) Debility (Chronic) Dependent edema (Chronic) Assessment: This is a 79-year-old obese female with multiple pre-existing medical conditions. These include, but are not limited to, diabetes mellitus, coronary artery disease, hyperlipidemia, hypertension, hypothyroidism, renal insufficiency, etc. She has significant swelling, edema, and lymphedema in the lower extremities bilaterally, with an associated open ulceration on the right anterior tibial surface. Her presenting symptoms and manifestations appear to be related to lifestyle factors. She is sedentary, and sits for long periods each day. Furthermore, the patient sleeps in an upright position. She is obese, and not active. It appears as though these lifestyle factors have resulted in significant swelling, edema, and lymphedema in the patient's lower extremities, which have more recently resulted in the development of an ulceration on the right anterior tibial surface. The patient has demonstrated mild improvement in recent weeks, with the implementation of conservative treatment measures. Plan: The patient has been advised to elevate her lower extremities as much as possible. The means by which this is to be accomplished has been discussed in detail with the patient and with her daughter, who was at the bedside. The patient's legs are to be elevated to heart level, or higher. This is to be accomplished as much as possible, even during daytime hours. The patient has been advised to sleep on a flat mattress at night. Activity has been encouraged, though the patient is somewhat limited by her physical status. She has been urged to refrain from prolonged, idle standing and sitting. Weight loss has been recommended. We are to continue compression to the lower extremities by means of 3M 2 layer compression wraps bilaterally. We are to use Fibracol topically to the large ulceration on the right anterior tibial surface. These compression wraps are to be changed twice weekly. This compression has been tolerated well thus far. The patient underwent laboratory testing, performed at [facility], the results of which are as follows: White blood count 8.6, hemoglobin 9.4, hematocrit 28.2, platelets 248,000, sodium 142, potassium 5.1, chloride 110, glucose 120, BUN 47, creatinine 2, calcium 9.5, total protein 6.4, hemoglobin A1c 6.4. A noninvasive lower extremity arterial study was ordered, but was not performed as scheduled due to insurance issues. However, the patient has been tolerating compression wraps thus far, without any adverse consequences. Patient has been advised to optimize her nutritional intake. Optimization of the patient's glycemic control has also been recommended. It is anticipated that the patient will be transitioned to graduated compression stockings or Velcro compression garments for long-term use. We are to seek approval for mechanical, pneumatic compression pumps. Patient will return in 1 week for reassessment. Influenza vaccine was not administered today. Patient is not a smoker. The patient is 5 feet 3 inches tall. She weighs 180 pounds. Her BMI is 31.8, which places her in a class I obesity category. Weight loss has been recommended, in collaboration with her primary care physician in this regard has been advised.
[2019-10-05 12:52] VITALS: BP 157/76; RESP 16; TEMP 36.9; BMI 31.8
[2019-10-09 11:34] VITALS: BP 195/69; PULSE 66; RESP 20; TEMP 36.7; BMI 31.8
--- NOTE | 2019-10-09 11:57 | HP.PCM_ITS ---
(1) Leg swelling Status: Chronic Current Visit: Yes Code(s): M79.89 - Other specified soft tissue disorders (2) Edema of both legs Status: Chronic Current Visit: Yes Code(s): R60.0 - Localized edema (3) Venous hypertension, chronic, with ulcer Status: Chronic Current Visit: Yes Code(s): I87.319 - Chronic venous hypertension (idiopathic) with ulcer of unspecified lower extremity; L97.909 - Non-pressure chronic ulcer of unspecified part of unspecified lower leg with unspecified severity (4) Venous stasis ulcer Status: Chronic Current Visit: Yes Qualifiers: Venous stasis ulcer site: calf Varicose vein presence: with varicose veins Laterality: right Non-pressure ulcer stage: with fat layer exposed Larry lified Code(s): I83.012 - Varicose veins of right lower extremity with ulcer of calf; L97.212 - Non-pressure chronic ulcer of right calf with fat layer exposed Code(s): I83.009 - Varicose veins of unspecified lower extremity with ulcer of unspecified site; L97.909 - Non-pressure chronic ulcer of unspecified part of unspecified lower leg with unspecified severity (5) Lymphedema Status: Chronic Current Visit: Yes Code(s): I89.0 - Lymphedema, not elsewhere classified (6) Obesity (BMI 30.0-34.9) Status: Chronic Current Visit: Yes Code(s): E66.9 - Obesity, unspecified (7) CAD (coronary artery disease) Status: Chronic Current Visit: No Code(s): I25.10 - Atherosclerotic heart disease of [place] coronary artery without angina pectoris (8) Diabetes mellitus Status: Chronic Current Visit: No Code(s): E11.9 - Type 2 diabetes mellitus without complications (9) Hypertension Status: Chronic Current Visit: No Code(s): I10 - Essential (primary) hypertension (10) History of [place] (myocardial infarction) Status: Chronic Current Visit: No Code(s): I25.2 - Old myocardial infarction (11) Hypothyroidism Status: Chronic Current Visit: No Code(s): E03.9 - Hypothyroidism, unspecified (12) Renal failure Status: Chronic Current Visit: No Code(s): N19 - Unspecified kidney failure (13) Hyperlipidemia Status: Chronic Current Visit: No Code(s): E78.5 - Hyperlipidemia, unspecified (14) Debility Status: Chronic Current Visit: Yes Code(s): R53.81 - Other malaise (15) Dependent edema Status: Chronic Current Visit: Yes Code(s): R60.9 - Edema, unspecified History of Present Illness Date of Service: 10/09/19 Chief Complaint: Severe swelling, edema, and lymphedema in the lower extremities bilaterally, with ulceration of the right anterior tibial surface History of Wound: This is a 79-year-old female who presented with severe swelling, edema, and lymphedema in the lower extremities bilaterally. In addition, she has an ulceration on the right anterior tibial surface, said to be present for approximately 6 weeks. It initially occurred approximately 6 weeks prior to admission, having developed spontaneously. Initially, according to the patient, the area became blistered, and subsequently opened to form an ulceration. Patient is not active. She spends long hours each day sitting idlely. She sleeps in a chair. When ambulatory, she requires the use of a cane or walker. She is mildly obese. Past Medical History Past Medical History: Chronic Problems Leg swelling (Chronic) Edema of both legs (Chronic) Venous hypertension, chronic, with ulcer (Chronic) Venous stasis ulcer (Chronic) Lymphedema (Chronic) Obesity (BMI 30.0-34.9) (Chronic) CAD (coronary artery disease) (Chronic) Diabetes mellitus (Chronic) Hypertension (Chronic) History of [place] (myocardial infarction) (Chronic) Hypothyroidism (Chronic) Renal failure (Chronic) Hyperlipidemia (Chronic) Debility (Chronic) Dependent edema (Chronic) Surgical History: - - Patient is undergone partial hysterectomy in the past. She is also undergone cholecystectomy. Coronary revascularization was performed approximately 6 years ago. The patient is a G3, P3 Ab0. Allergies/Adverse Reactions: Allergies indomethacin [From Indocin] Allergy (Verified 08/21/19 11:29) Vomiting Home Medications: Ambulatory Orders Medication Instructions Recorded Aspirin [Aspir 81] 81 mg PO DAILY 08/21/19 Atorvastatin Calcium 80 mg PO DAILY 08/21/19 Chlorthalidone 50 mg PO DAILY 08/21/19 Cholecalciferol (Vitamin D3) 2,000 unit PO DAILY 08/21/19 [Vitamin D3] Digoxin [Digitek] 125 mcg PO DAILY 08/21/19 Glimepiride [Amaryl] 2 mg PO DAILY 08/21/19 Hydralazine HCl 100 mg PO TID 08/21/19 Isosorbide Mononitrate [Isosorbide 30 mg PO DAILY 08/21/19 Mononitrate ER] Levothyroxine Sodium 125 mcg PO DAILY 08/21/19 Lisinopril 20 mg PO DAILY 08/21/19 Metoprolol Tartrate 50 mg PO BID 08/21/19 - Family History Paternal - - Patient's father at the age of 56 with a history of myocardial infarction. The patient's mother at the age of 56 with history of breast cancer. Smoking Status: Never smoker Tobacco Use: Non-smoker Review of Systems Constitutional: Denies: Chills, Fever, Weight Change Eyes: Denies: Pain, Vision Change HEENT: Denies: Difficulty Hearing, Difficulty Swallowing, Sinus Congestion Cardiovascular: Denies: Chest Pain, Palpitations Respiratory: Denies: Cough, Shortness of Breath Gastrointestinal: Denies: Diarrhea, Nausea, Vomiting Genitourinary: Denies: Dysuria, Hematuria Endocrine: Denies: Heat/ Cold Intolerance, Polydipsia, Polyuria Hematologic/ Lymphatic: Denies: Easy Bruising, Easy Bleeding - Physical Exam Vital Signs Temp Pulse Resp BP 98.0 F 66 20 H 195/69 H 10/09/19 11:34 10/09/19 11:34 10/09/19 11:34 10/09/19 11:34 General: Alert, Oriented x3, Cooperative, No apparent distress, Well developed, Well nourished HEENT: Atraumatic, PERRLA, EOMI, Normocephalic Oral: Moist Mucosa Neck: No JVD Lungs: Normal air movement Abdomen: Non-Distended, Obese Extremities: No clubbing, No cyanosis, No Calf Tenderness, - - Moderate swelling and edema persist in the patient's lower extremities bilaterally. The ulceration on the right anterior tibial surface persists as well, though with definite signs of improvement. There are increasing areas of epithelialization. The ulceration is diminishing in size. The base of the ulceration is generally pink and healthy in appearance, with only small amounts of bioburden and nonviable tissue. There is no sign of infection or cellulitis. Dimensions are documented elsewhere. Skin: No rashes Wound Measurements and Assessment WC - Nurse 1 - General Ulcer Measurement Start: 09/28/19 11:46 Freq: Status: Active Protocol: Activity Type Activity Date Activity User E-Sign Co-Sign Detail Recorded Client Recorded Date Recorded By Document 10/09/19 11:34 JESUS MANUEL [id number] 10/09/19 11:42 JESUS MANUEL 10/09/19 11:34 Wound Center Nurse 1 [Ulcer Assessment] 1-right sinclair -Current Size (cm) - Length 11.6 -Current Size (cm) - Width 6.4 -Current Size (cm) - Depth 0.1 -Total Square Cm 74.24 -Photo Taken No -Exudate Amt Medium -Exudate Type Serosanguineous -Wound Margin Indistinct, Non -Visible -Granulation Amt Medium (34-66%) -Granulation Quality [place] -Necrosis Amt Medium (34-66%) -Necrotic Tissue Type Adherent Slough -Structure Exposed N/A -Texture (Ileana-wound Skin Appearance) Scarring -Moisture (Ileana-wound Skin Appearance Dry/Scaly ) -Color (Ileana-wound Skin Appearance) Hemosiderin Staining -Temperature (Ileana-wound Skin No Abnormality Appearance) (Pt Warm) -Tenderness on Palpation (Ileana-wound No Skin Appearance) -Ulcer Cleansing Wound Cleanser -Foul Odor after Cleansing No -Anesthetic Used 4% Lidocaine Solution [Edema Assessment] -Right Calf (cm) 37.3 -Right Ankle (cm) 28.3 -Left Calf (cm) 39 -Left Ankle (cm) 28.6 Neurological: Cranial nerves II-XII grossly intact, Neuro grossly intact Psych/Mental Status: Normal Affect, Appropriate, Alert and oriented to time, place, person, mood and affect Debridement Note Post-Debridement Measurements/Treatment WC - Nurse 2 - General Ulcer CM Notes Start: 09/28/19 11:46 Freq: Status: Active Protocol: Activity Type Activity Date Activity User E-Sign Co-Sign Detail Recorded Client Recorded Date Recorded By Document 10/02/19 11:50 JESUS MANUEL [id number] 10/02/19 11:51 JESUS MANUEL 10/02/19 11:50 Wound Center Nurse 2 1-right sinclair -Time 11:50 -Correct Patient Yes -Correct Side, Site, Position Yes -Correct Procedure Yes -Procedure Performed Yes -Type of Procedure Debridement -Clinical Debridement Subcutaneous -Post Debridement Size (cm) - Length 9.6 -Post Debridement Size (cm) - Width 6.0 -Post Debridement Size (cm) - Depth 0.1 -Total Square Cm 57.60 -Wound/Ulcer Outcome Not Healed -Ulcer Cleansing Rinsed/ Irrigated with Saline -Foul Odor after Cleansing No -Bioengineered Tissue No -Bleeding Controlled with Pressure -Offloading No -Treatment Response Procedure Tolerated Well Pain Scale: 0-10 Numeric Is Patient Pain Free? Yes Laterality: Right - Anterior tibial surface Type of Debridement: Excisional debridement Anesthesia Used: 5% Lidocaine Gel Depth: Down to and including healthy tissue, in the subcutaneous layer Percentage of wound debrided: 100 Instrument Used: 5mm curette Tissue Removed: Bioburden and nonviable tissue Severity: Fat Layer Exposed Amount of bleeding with debridement: Mild Bleeding Controlled with: Compression and gauze Patient tolerated procedure well Assessment/Plan Active Problems Leg swelling (Chronic) Edema of both legs (Chronic) Venous hypertension, chronic, with ulcer (Chronic) Venous stasis ulcer (Chronic) Lymphedema (Chronic) Obesity (BMI 30.0-34.9) (Chronic) Debility (Chronic) Dependent edema (Chronic) Assessment: This is a 79-year-old obese female with multiple pre-existing medical conditions. These include, but are not limited to, diabetes mellitus, coronary artery disease, hyperlipidemia, hypertension, hypothyroidism, renal insufficiency, etc. She has significant swelling, edema, and lymphedema in the lower extremities bilaterally, with an associated open ulceration on the right anterior tibial surface. Her presenting symptoms and manifestations appear to be related to lifestyle factors. She is sedentary, and sits for long periods each day. Furthermore, the patient sleeps in an upright position. She is obese, and not active. It appears as though these lifestyle factors have resulted in significant swelling, edema, and lymphedema in the patient's lower extremities, which have more recently resulted in the development of an ulceration on the right anterior tibial surface. The patient has demonstrated mild improvement in recent weeks, with the implementation of conservative treatment measures. Plan: The patient has been advised to elevate her lower extremities as much as possible. The means by which this is to be accomplished has been discussed in detail with the patient and with her daughter, who was at the bedside. The patient's legs are to be elevated to heart level, or higher. This is to be accomplished as much as possible, even during daytime hours. The patient has been advised to sleep on a flat mattress at night. Activity has been encouraged, though the patient is somewhat limited by her physical status. She has been urged to refrain from prolonged, idle standing and sitting. Weight loss has been recommended. We are to continue compression to the lower ext remities by means of 3M 2 layer compression wraps bilaterally. We are to use Aquacel topically to the large ulceration on the right anterior tibial surface. These compression wraps are to be changed twice weekly. This compression has been tolerated well thus far. The patient underwent laboratory testing, performed at [facility], the results of which are as follows: White blood count 8.6, hemoglobin 9.4, hematocrit 28.2, platelets 248,000, sodium 142, potassium 5.1, chloride 110, glucose 120, BUN 47, creatinine 2, calcium 9.5, total protein 6.4, hemoglobin A1c 6.4. A noninvasive lower extremity arterial study was ordered, but was not performed as scheduled due to insurance issues. However, the patient has been tolerating compression wraps thus far, without any adverse consequences. Patient has been advised to optimize her nutritional intake. Optimization of the patient's glycemic control has also been recommended. It is anticipated that the patient will be transitioned to graduated compression stockings or Velcro compression garments for long-term use. We are to seek approval for Velcro compression garments. We are to seek approval for mechanical, pneumatic compression pumps as well. Patient will return in 1 week for reassessment. Influenza vaccine was not administered today. Patient is not a smoker. The patient is 5 feet 3 inches tall. She weighs 180 pounds. Her BMI is 31.8, which places her in a class I obesity category. Weight loss has been recommended, in collaboration with her primary care physician in this regard has been advised.
[2019-10-12 12:31] VITALS: BP 162/70; PULSE 61; RESP 16; TEMP 36.6; BMI 31.8
[2019-10-16 10:13] VITALS: BP 170/70; PULSE 55; RESP 18; TEMP 36.7; BMI 31.8
--- NOTE | 2019-10-16 10:42 | PCM.WC.HP ---
(1) Leg swelling Status: Chronic Current Visit: Yes Code(s): M79.89 - Other specified soft tissue disorders (2) Edema of both legs Status: Chronic Current Visit: Yes Code(s): R60.0 - Localized edema (3) Venous hypertension, chronic, with ulcer Status: Chronic Current Visit: Yes Code(s): I87.319 - Chronic venous hypertension (idiopathic) with ulcer of unspecified lower extremity; L97.909 - Non-pressure chronic ulcer of unspecified part of unspecified lower leg with unspecified severity (4) Venous stasis ulcer Status: Chronic Current Visit: Yes Qualifiers: Venous stasis ulcer site: calf Varicose vein presence: with varicose veins Laterality: right Non-pressure ulcer stage: with fat layer exposed Qualified Code(s): I83.012 - Varicose veins of right lower extremity with ulcer of calf; L97.212 - Non-pressure chronic ulcer of right calf with fat layer exposed Code(s): I83.009 - Varicose veins of unspecified lower extremity with ulcer of unspecified site; L97.909 - Non-pressure chronic ulcer of unspecified part of unspecified lower leg with unspecified severity (5) Lymphedema Status: Chronic Current Visit: Yes Code(s): I89.0 - Lymphedema, not elsewhere classified (6) Obesity (BMI 30.0-34.9) Status: Chronic Current Visit: Yes Code(s): E66.9 - Obesity, unspecified (7) CAD (coronary artery disease) Status: Chronic Current Visit: No Code(s): I25.10 - Atherosclerotic heart disease of [place] coronary artery without angina pectoris (8) Diabetes mellitus Status: Chronic Current Visit: No Code(s): E11.9 - Type 2 diabetes mellitus without complications (9) Hypertension Status: Chronic Current Visit: No Code(s): I10 - Essential (primary) hypertension (10) History of DE (myocardial infarction) Status: Chronic Current Visit: No Code(s): I25.2 - Old myocardial infarction (11) Hypothyroidism Status: Chronic Current Visit: No Code(s): E03.9 - Hypothyroidism, unspecified (12) Renal failure Status: Chronic Current Visit: No Code(s): N19 - Unspecified kidney failure (13) Hyperlipidemia Status: Chronic Current Visit: No Code(s): E78.5 - Hyperlipidemia, unspecified (14) Debility Status: Chronic Current Visit: Yes Code(s): R53.81 - Other malaise (15) Dependent edema Status: Chronic Current Visit: Yes Code(s): R60.9 - Edema, unspecified History of Present Illness Date of Service: 10/16/19 Chief Complaint: Severe swelling, edema, and lymphedema in the lower extremities bilaterally, with ulceration of the right anterior tibial surface History of Wound: This is a 79-year-old female who presented with severe swelling, edema, and lymphedema in the lower extremities bilaterally. In addition, she has an ulceration on the right anterior tibial surface, said to be present for approximately 6 weeks. It initially occurred approximately 6 weeks prior to admission, having developed spontaneously. Initially, according to the patient, the area became blistered, and subsequently opened to form an ulceration. Patient is not active. She spends long hours each day sitting idlely. She sleeps in a chair. When ambulatory, she requires the use of a cane or walker. She is mildly obese. Past Medical History Past Medical History: Chronic Problems Leg swelling (Chronic) Edema of both legs (Chronic) Venous hypertension, chronic, with ulcer (Chronic) Venous stasis ulcer (Chronic) Lymphedema (Chronic) Obesity (BMI 30.0-34.9) (Chronic) CAD (coronary artery disease) (Chronic) Diabetes mellitus (Chronic) Hypertension (Chronic) History of DE (myocardial infarction) (Chronic) Hypothyroidism (Chronic) Renal failure (Chronic) Hyperlipidemia (Chronic) Debility (Chronic) Dependent edema (Chronic) Surgical History: - - Patient is undergone partial hysterectomy in the past. She is also undergone cholecystectomy. Coronary revascularization was performed approximately 6 years ago. The patient is a G3, P3 Ab0. Allergies/Adverse Reactions: Allergies indomethacin [From Indocin] Allergy (Verified 08/21/19 11:29) Vomiting Home Medications: Ambulatory Orders Medication Instructions Recorded Aspirin [Aspir 81] 81 mg PO DAILY 08/21/19 Atorvastatin Calcium 80 mg PO DAILY 08/21/19 Chlorthalidone 50 mg PO DAILY 08/21/19 Cholecalciferol (Vitamin D3) 2,000 unit PO DAILY 08/21/19 [Vitamin D3] Digoxin [Digitek] 125 mcg PO DAILY 08/21/19 Glimepiride [Amaryl] 2 mg PO DAILY 08/21/19 Hydralazine HCl 100 mg PO TID 08/21/19 Isosorbide Mononitrate [Isosorbide 30 mg PO DAILY 08/21/19 Mononitrate ER] Levothyroxine Sodium 125 mcg PO DAILY 08/21/19 Lisinopril 20 mg PO DAILY 08/21/19 Metoprolol Tartrate 50 mg PO BID 08/21/19 - Family History Paternal - - Patient's father at the age of 56 with a history of myocardial infarction. The patient's mother at the age of 56 with history of breast cancer. Smoking Status: Never smoker Tobacco Use: Non-smoker Review of Systems Constitutional: Denies: Chills, Fever, Weight Change Eyes: Denies: Pain, Vision Change HEENT: Denies: Difficulty Hearing, Difficulty Swallowing, Sinus Congestion Cardiovascular: Denies: Chest Pain, Palpitations Respiratory: Denies: Cough, Shortness of Breath Gastrointestinal: Denies: Diarrhea, Nausea, Vomiting Genitourinary: Denies: Dysuria, Hematuria Endocrine: Denies: Heat/ Cold Intolerance, Polydipsia, Polyuria Hematologic/ Lymphatic: Denies: Easy Bruising, Easy Bleeding - Physical Exam Vital Signs Temp Pulse Resp BP 98.0 F 55 L 18 170/70 H 10/16/19 10:13 10/16/19 10:13 10/16/19 10:13 10/16/19 10:13 General: Alert, Oriented x3, Cooperative, No apparent distress, Well developed, Well nourished HEENT: Atraumatic, PERRLA, EOMI, Normocephalic Oral: Moist Mucosa Neck: No JVD Lungs: Normal air movement Abdomen: Non-Distended Extremities: No clubbing, No cyanosis, No Calf Tenderness, - - Moderate swelling and edema persist in the lower extremities bilaterally. There is also an element of lymphedema as well. The ulceration on the right anterior tibial surface persists, but is much smaller in size. There is evidence of peripheral epithelialization. The base of the open ulceration is pink and healthy in appearance, with active granulation tissue. Dimensions are documented elsewhere. There is a mild amount of bioburden. There is no sign of infection or cellulitis. Skin: No rashes Wound Measurements and Assessment WC - Nurse 1 - General Ulcer Measurement Start: 09/28/19 11:46 Freq: Status: Active Protocol: Activity Type Activity Date Activity User E-Sign Co-Sign Detail Recorded Client Recorded Date Recorded By Document 10/16/19 10:13 JESUS MANUEL [id number] 10/16/19 10:14 10/16/19 10:13 Wound Center Nurse 1 [Ulcer Assessment] 1-right sinclair -Combined with other wound No -Current Size (cm) - Length 9.0 -Current Size (cm) - Width 5.4 -Current Size (cm) - Depth 0.2 -Total Square Cm 48.60 -Photo Taken No -Epithelialization Medium 34-66% -Tunneling No -Undermining/Tunneling No -Circular Undermining No -Exudate Amt Medium -Exudate Type Serosanguineous -Wound Margin Flat & Intact -Granulation Amt Large (67-100%) -Granulation Quality Red -Slough/Fibrin Yes -Necrosis Amt Medium (34-66%) -Necrotic Tissue Type Adherent Slough -Structure Exposed N/A -Texture (Ileana-wound Skin Appearance) Assessed, Localized Edema -Moisture (Ileana-wound Skin Appearance Assessed,Dry/ ) Scaly -Color (Ileana-wound Skin Appearance) Assessed -Temperature (Ileana-wound Skin No Abnormality Appearance) (Pt Warm) -Tenderness on Palpation (Ileana-wound No Skin Appearance) -Ulcer Cleansing Wound Cleanser -Foul Odor after Cleansing No -Anesthetic Used 4% Lidocaine Solution [Edema Assessment] -Lower Limb Edema Present Yes -Right Calf (cm) 38.2 -Right Ankle (cm) 29.3 -Left Calf (cm) 43.1 -Left Ankle (cm) 30.7 Neurological: Cranial nerves II-XII grossly intact, Neuro grossly intact Psych/Mental Status: Normal Affect, Appropriate, Alert and oriented to time, place, person, mood and affect Debridement Note Post-Debridement Measurements/Treatment WC - Nurse 2 - General Ulcer CM Notes Start: 09/28/19 11:46 Freq: Status: Active Protocol: Activity Type Activity Date Activity User E-Sign Co-Sign Detail Recorded Client Recorded Date Recorded By Document 10/02/19 11:50 JESUS MANUEL [id number] 10/02/19 11:51 Document 10/09/19 11:50 JESUS MANUEL [id number] 10/09/19 11:59 10/02/19 10/09/19 11:50 11:50 Wound Center Nurse 2 1-right sinclair -Time 11:50 11:52 -Correct Patient Yes Yes -Correct Side, Site, Position Yes Yes -Correct Procedure Yes Yes -Procedure Performed Yes Yes -Type of Procedure Debridement Debridement -Clinical Debridement Subcutaneous Subcutaneous -Post Debridement Size (cm) - Length 9.6 11.2 -Post Debridement Size (cm) - Width 6.0 7 -Post Debridement Size (cm) - Depth 0.1 0.1 -Total Square Cm 57.60 78.4 -Wound/Ulcer Outcome Not Healed Not Healed -Ulcer Cleansing Rinsed/ Rinsed/ Irrigated with Irrigated with Saline Saline -Foul Odor after Cleansing No No -Bioengineered Tissue No No -Bleeding Controlled with Pressure Pressure -Offloading No No -Treatment Response Procedure Tolerated Well Pain Scale: 0-10 Numeric Is Patient Pain Free? Yes Yes Laterality: Right - Anterior tibial surface Type of Debridement: Excisional debridement Anesthesia Used: 5% Lidocaine Gel Depth: Down to and including healthy tissue, in the subcutaneous layer Percentage of wound debrided: 100 Instrument Used: 5mm curette Tissue Removed: Bioburden and nonviable tissue Severity: Fat Layer Exposed Amount of bleeding with debridement: Mild Bleeding Controlled with: Compression and gauze Patient tolerated procedure well Assessment/Plan Active Problems Leg swelling (Chronic) Edema of both legs (Chronic) Venous hypertension, chronic, with ulcer (Chronic) Venous stasis ulcer (Chronic) Lymphedema (Chronic) Obesity (BMI 30.0-34.9) (Chronic) Debility (Chronic) Dependent edema (Chronic) Assessment: This is a 79-year-old obese female with multiple pre-existing medical conditions. These include, but are not limited to, diabetes mellitus, coronary artery disease, hyperlipidemia, hypertension, hypothyroidism, renal insufficiency, etc. She has significant swelling, edema, and lymphedema in the lower extremities bilaterally, with an associated open ulceration on the right anterior tibial surface. Her presenting symptoms and manifestations appear to be related to lifestyle factors. She is sedentary, and sits for long periods each day. Furthermore, the patient sleeps in an upright position. She is obese, and not active. It appears as though these lifestyle factors have resulted in significant swelling, edema, and lymphedema in the patient's lower extremities, which have more recently resulted in the development of an ulceration on the right anterior tibial surface. The patient has demonstrated mild improvement in recent weeks, with the implementation of conservative treatment measures. Plan: The patient has been advised to elevate her lower extremities as much as possible. The means by which this is to be accomplished has been discussed in detail with the patient and with her daughter, who was at the bedside. The patient's legs are to be elevated to heart level, or higher. This is to be accomplished as much as possible, even during daytime hours. The patient has been advised to sleep on a flat mattress at night. Activity has been encouraged, though the patient is somewhat limited by her physical status. She has been urged to refrain from prolonged, idle standing and sitting. Weight loss has been recommended. We are to continue compression to the lower extremities by means of 3M 2 layer compression wraps bilaterally. We are to use Aquacel Silver topically to the large ulceration on the right anterior tibial surface. These compression wraps are to be changed twice weekly. This compression has been tolerated well thus far. The patient underwent laboratory testing, performed at [facility], the results of which are as follows: White blood count 8.6, hemoglobin 9.4, hematocrit 28.2, platelets 248,000, sodium 142, potassium 5.1, chloride 110, glucose 120, BUN 47, creatinine 2, calcium 9.5, total protein 6.4, hemoglobin A1c 6.4. A noninvasive lower extremity arterial study was ordered, but was not performed as scheduled due to insurance issues. However, the patient has been tolerating compression wraps thus far, without any adverse consequences. Patient has been advised to optimize her nutritional intake. Optimization of the patient's glycemic control has also been recommended. It is anticipated that the patient will be transitioned to graduated compression stockings or Velcro compression garments for long-term use. We are to seek approval for Velcro compression garments. We are to seek approval for mechanical, pneumatic compression pumps as well. Patient will return in 1 week for reassessment. Influenza vaccine was not administered today. Patient is not a smoker. The patient is 5 feet 3 inches tall. She weighs 180 pounds. Her BMI is 31.8, which places her in a class I obesity category. Weight loss has been recommended, in collaboration with her primary care physician in this regard has been advised.
[2019-10-19 09:39] VITALS: BP 160/72; PULSE 86; RESP 18; TEMP 36.6; BMI 31.8
--- NOTE | 2019-10-19 09:42 | WC ---
EXCORATION OF PERIWOUND NOTED CLEANSED THEN AG THEN ABD PAD APPLIED SECURED WITH DEBRA GAUZE THEN 3M
[2019-10-23 10:16] VITALS: BP 142/82; PULSE 62; RESP 20; TEMP 36.4; BMI 31.8
== END 2019-10-27 23:59 ==
LOC: WC 10:15
PROVIDERS: Family Provider Family Medicine; PCP Family Medicine; Visit Provider Surgery
DX: E11.622 Type 2 diabetes mellitus with other skin ulcer (principal); M79.89 Other specified soft tissue disorders; R60.0 Localized edema; I83.012 Varicose veins of right lower extremity with ulcer of calf; L97.212 Non-pressure chronic ulcer of right calf with fat layer exposed; I89.0 Lymphedema, not elsewhere classified; I25.10 Atherosclerotic heart disease of native coronary artery without angina pectoris; I25.2 Old myocardial infarction; E66.9 Obesity, unspecified; E11.22 Type 2 diabetes mellitus with diabetic chronic kidney disease; I12.9 Hypertensive chronic kidney disease with stage 1 through stage 4 chronic kidney disease, or unspecified chronic kidney disease; N18.9 Chronic kidney disease, unspecified; E03.9 Hypothyroidism, unspecified; E78.5 Hyperlipidemia, unspecified; Z79.899 Other long term (current) drug therapy; Z79.82 Long term (current) use of aspirin; Z79.84 Long term (current) use of oral hypoglycemic drugs; Z68.31 Body mass index [BMI] 31.0-31.9, adult
CPT/HCPCS: 11042; 11045; 29581; 99212; 99213; G0463

== ENCOUNTER 2019-11-26 14:00 | Outpatient (RCR) | payer MEDICARE, SELFPAY ==
[2019-10-28 00:56] VITALS: BP 142/82; PULSE 62; RESP 20; TEMP 36.4
[2019-10-30 10:25] VITALS: BP 174/76; RESP 16; TEMP 36.6; BMI 31.8
--- NOTE | 2019-10-30 11:08 | PCM.WC.HP ---
(1) Leg swelling Status: Chronic Current Visit: Yes Code(s): M79.89 - Other specified soft tissue disorders (2) Edema of both legs Status: Chronic Current Visit: Yes Code(s): R60.0 - Localized edema (3) Venous hypertension, chronic, with ulcer Status: Chronic Current Visit: Yes Code(s): I87.319 - Chronic venous hypertension (idiopathic) with ulcer of unspecified lower extremity; L97.909 - Non-pressure chronic ulcer of unspecified part of unspecified lower leg with unspecified severity (4) Venous stasis ulcer Status: Chronic Current Visit: Yes Qualifiers: Venous stasis ulcer site: calf Varicose vein presence: with varicose veins Laterality: right Non-pressure ulcer stage: with fat layer exposed Qualified Code(s): I83.012 - Varicose veins of right lower extremity with ulcer of calf; L97.212 - Non-pressure chronic ulcer of right calf with fat layer exposed Code(s): I83.009 - Varicose veins of unspecified lower extremity with ulcer of unspecified site; L97.909 - Non-pressure chronic ulcer of unspecified part of unspecified lower leg with unspecified severity (5) Lymphedema Status: Chronic Current Visit: Yes Code(s): I89.0 - Lymphedema, not elsewhere classified (6) Obesity (BMI 30.0-34.9) Status: Chronic Current Visit: Yes Code(s): E66.9 - Obesity, unspecified (7) CAD (coronary artery disease) Status: Chronic Current Visit: No Code(s): I25.10 - Atherosclerotic heart disease of [place] coronary artery without angina pectoris (8) Diabetes mellitus Status: Chronic Current Visit: No Code(s): E11.9 - Type 2 diabetes mellitus without complications (9) Hypertension Status: Chronic Current Visit: No Code(s): I10 - Essential (primary) hypertension (10) History of [place] (myocardial infarction) Status: Chronic Current Visit: No Code(s): I25.2 - Old myocardial infarction (11) Hypothyroidism Status: Chronic Current Visit: No Code(s): E03.9 - Hypothyroidism, unspecified (12) Renal failure Status: Chronic Current Visit: No Code(s): N19 - Unspecified kidney failure (13) Hyperlipidemia Status: Chronic Current Visit: No Code(s): E78.5 - Hyperlipidemia, unspecified (14) Debility Status: Chronic Current Visit: Yes Code(s): R53.81 - Other malaise (15) Dependent edema Status: Chronic Current Visit: Yes Code(s): R60.9 - Edema, unspecified History of Present Illness Date of Service: 10/30/19 Chief Complaint: Severe swelling, edema, and lymphedema in the lower extremities bilaterally, with ulceration of the right anterior tibial surface History of Wound: This is a 79-year-old female who presented with severe swelling, edema, and lymphedema in the lower extremities bilaterally. In addition, she has an ulceration on the right anterior tibial surface, said to have been present for approximately 6 weeks. It initially occurred approximately 6 weeks prior to admission, having developed spontaneously. Initially, according to the patient, the area became blistered, and subsequently opened to form an ulceration. Patient is not active. She spends long hours each day sitting idlely. She sleeps in a chair. When ambulatory, she requires the use of a cane or walker. She is mildly obese. Past Medical History Past Medical History: Chronic Problems Leg swelling (Chronic) Edema of both legs (Chronic) Venous hypertension, chronic, with ulcer (Chronic) Venous stasis ulcer (Chronic) Lymphedema (Chronic) Obesity (BMI 30.0-34.9) (Chronic) CAD (coronary artery disease) (Chronic) Diabetes mellitus (Chronic) Hypertension (Chronic) History of [place] (myocardial infarction) (Chronic) Hypothyroidism (Chronic) Renal failure (Chronic) Hyperlipidemia (Chronic) Debility (Chronic) Dependent edema (Chronic) Surgical History: - - Patient is undergone partial hysterectomy in the past. She is also undergone cholecystectomy. Coronary revascularization was performed approximately 6 years ago. The patient is a G3, P3 Ab0. Allergies/Adverse Reactions: Allergies indomethacin [From Indocin] Allergy (Verified 08/21/19 11:29) Vomiting Home Medications: Ambulatory Orders Medication Instructions Recorded Aspirin [Aspir 81] 81 mg PO DAILY 08/21/19 Atorvastatin Calcium 80 mg PO DAILY 08/21/19 Chlorthalidone 50 mg PO DAILY 08/21/19 Cholecalciferol (Vitamin D3) 2,000 unit PO DAILY 08/21/19 [Vitamin D3] Digoxin [Digitek] 125 mcg PO DAILY 08/21/19 Glimepiride [Amaryl] 2 mg PO DAILY 08/21/19 Hydralazine HCl 100 mg PO TID 08/21/19 Isosorbide Mononitrate [Isosorbide 30 mg PO DAILY 08/21/19 Mononitrate ER] Levothyroxine Sodium 125 mcg PO DAILY 08/21/19 Lisinopril 20 mg PO DAILY 08/21/19 Metoprolol Tartrate 50 mg PO BID 08/21/19 - Family History Paternal - - Patient's father at the age of 56 with a history of myocardial infarction. The patient's mother at the age of 56 with history of breast cancer. Smoking Status: Never smoker Tobacco Use: Non-smoker Review of Systems Constitutional: Denies: Chills, Fever, Weight Change Eyes: Denies: Pain, Vision Change HEENT: Denies: Difficulty Hearing, Difficulty Swallowing, Sinus Congestion Cardiovascular: Denies: Chest Pain, Palpitations Respiratory: Denies: Cough, Shortness of Breath Gastrointestinal: Denies: Diarrhea, Nausea, Vomiting Genitourinary: Denies: Dysuria, Hematuria Endocrine: Denies: Heat/ Cold Intolerance, Polydipsia, Polyuria Hematologic/ Lymphatic: Denies: Easy Bruising, Easy Bleeding - Physical Exam Vital Signs Temp Pulse Resp BP 98 F 62 16 174/76 H 10/30/19 10:25 10/28/19 00:56 10/30/19 10:25 10/30/19 10:25 General: Alert, Oriented x3, Cooperative, No apparent distress, Well developed, Well nourished, - - Patient is obese HEENT: Atraumatic, PERRLA, EOMI, Normocephalic Oral: Moist Mucosa Neck: No JVD Lungs: Normal air movement Abdomen: Non-Distended, Obese Extremities: No clubbing, No cyanosis, No Calf Tenderness, - - Moderate swelling and edema persist in the lower extremities bilaterally, as well as lymphedema. The ulceration on the right anterior tibial surface persists. There are large areas of epithelialization. The ulceration is diminishing in size. There is no sign of infection or cellulitis. There is a moderate amount of bioburden. Dimensions are documented elsewhere. Skin: No rashes Wound Measurements and Assessment WC - Nurse 1 - General Ulcer Measurement Start: 10/30/19 10:24 Freq: Status: Active Protocol: Activity Type Activity Date Activity User E-Sign Co-Sign Detail Recorded Client Recorded Date Recorded By Document 10/30/19 10:25 [facility] [id number] 10/30/19 10:33 [facility] 10/30/19 10:25 Wound Center Nurse 1 [Ulcer Assessment] 1-right sinclair -Current Size (cm) - Length 11.3 -Current Size (cm) - Width 11.6 -Current Size (cm) - Depth 0.1 -Total Square Cm 131.08 -Photo Taken No -Exudate Amt Large -Exudate Type Serosanguineous -Wound Margin Indistinct, Non -Visible -Granulation Amt Medium (34-66%) -Granulation Quality Red -Necrosis Amt Medium (34-66%) -Necrotic Tissue Type Adherent Slough -Structure Exposed N/A -Texture (Ileana-wound Skin Appearance) Excoriation, Scarring -Moisture (Ileana-wound Skin Appearance No Abnormality ) -Color (Ileana-wound Skin Appearance) Hemosiderin Staining -Temperature (Ileana-wound Skin No Abnormality Appearance) (Pt Warm) -Tenderness on Palpation (Ileana-wound No Skin Appearance) -Ulcer Cleansing Wound Cleanser -Foul Odor after Cleansing No -Anesthetic Used 4% Lidocaine Solution,5% Lidocaine Gel [Edema Assessment] -Lower Limb Edema Present Yes -Right Calf (cm) 46.5 -Right Ankle (cm) 31 WC - Nurse 2 - General Ulcer CM Notes Start: 10/30/19 10:24 Freq: Status: Active Protocol: Activity Type Activity Date Activity User E-Sign Co-Sign Detail Recorded Client Recorded Date Recorded By Document 10/30/19 11:00 [id number] 10/30/19 11:02 DV 10/30/19 11:00 Wound Center Nurse 2 [Procedure/Treatment] 1-right sinclair -Time 11:01 -Correct Patient Yes -Correct Side, Site, Position Yes -Correct Procedure Yes -Procedure Performed Yes -Type of Procedure Debridement -Clinical Debridement Subcutaneous -Post Debridement Size (cm) - Length 13.0 -Post Debridement Size (cm) - Width 12.8 -Post Debridement Size (cm) - Depth 0.1 -Total Square Cm 166.40 -Wound/Ulcer Outcome Not Healed [See Physician Procedure note for Specifics] Neurological: Cranial nerves II-XII grossly intact, Neuro grossly intact Psych/Mental Status: Normal Affect, Appropriate, Alert and oriented to time, place, person, mood and affect Debridement Note Post-Debridement Measurements/Treatment WC - Nurse 2 - General Ulcer CM Notes Start: 10/30/19 10:24 Freq: Status: Active Protocol: Activity Type Activity Date Activity User E-Sign Co-Sign Detail Recorded Client Recorded Date Recorded By Document 10/30/19 11:00 DV [id number] 10/30/19 11:02 DV 10/30/19 11:00 Wound Center Nurse 2 1-right sinclair -Time 11:01 -Correct Patient Yes -Correct Side, Site, Position Yes -Correct Procedure Yes -Procedure Performed Yes -Type of Procedure Debridement -Clinical Debridement Subcutaneous -Post Debridement Size (cm) - Length 13.0 -Post Debridement Size (cm) - Width 12.8 -Post Debridement Size (cm) - Depth 0.1 -Total Square Cm 166.40 -Wound/Ulcer Outcome Not Healed Laterality: Right - Anterior tibial surface Type of Debridement: Excisional debridement Anesthesia Used: 5% Lidocaine Gel Depth: Down to and including healthy tissue, in the subcutaneous layer Percentage of wound debrided: 100 Instrument Used: 7mm curette Tissue Removed: Bioburden and nonviable tissue Severity: Fat Layer Exposed Amount of bleeding with debridement: Mild Bleeding Controlled with: Compression and gauze Patient tolerated procedure well Assessment/Plan Active Problems Leg swelling (Chronic) Edema of both legs (Chronic) Venous hypertension, chronic, with ulcer (Chronic) Venous stasis ulcer (Chronic) Lymphedema (Chronic) Obesity (BMI 30.0-34.9) (Chronic) Debility (Chronic) Dependent edema (Chronic) Assessment: This is a 79-year-old obese female with multiple pre-existing medical conditions. These include, but are not limited to, diabetes mellitus, coronary artery disease, hyperlipidemia, hypertension, hypothyroidism, renal insufficiency, etc. She has significant swelling, edema, and lymphedema in the lower extremities bilaterally, with an associated open ulceration on the right anterior tibial surface. Her presenting symptoms and manifestations appear to be related to lifestyle factors. She is sedentary, and sits for long periods each day. Furthermore, the patient sleeps in an upright position. She is obese, and not active. It appears as though these lifestyle factors have resulted in significant swelling, edema, and lymphedema in the patient's lower extremities, which have more recently resulted in the development of an ulceration on the right anterior tibial surface. The patient has demonstrated mild improvement in recent weeks, with the implementation of conservative treatment measures. Plan: The patient has been advised to elevate her lower extremities as much as possible. The means by which this is to be accomplished has been discussed in detail with the patient and with her daughter, who was at the bedside. The patient's legs are to be elevated to heart level, or higher. This is to be accomplished as much as possible, even during daytime hours. The patient has been advised to sleep on a flat mattress at night. Activity has been encouraged, though the patient is somewhat limited by her physical status. She has been urged to refrain from prolonged, idle standing and sitting. Weight loss has been recommended. We are to continue compression to the lower extremities by means of 3M 2 layer compression wraps bilaterally. We are to use Aquacel Silver topically to the large ulceration on the right anterior tibial surface. These compression wraps are to be changed twice weekly. This compression has been tolerated well thus far. The patient underwent laboratory testing, performed at [facility], the results of which are as follows: White blood count 8.6, hemoglobin 9.4, hematocrit 28.2, platelets 248,000, sodium 142, potassium 5.1, chloride 110, glucose 120, BUN 47, creatinine 2, calcium 9.5, total protein 6.4, hemoglobin A1c 6.4. A noninvasive lower extremity arterial study was ordered, but was not performed as scheduled due to insurance issues. However, the patient has been tolerating compression wraps thus far, without any adverse consequences. Patient has been advised to optimize her nutritional intake. Optimization of the patient's glycemic control has also been recommended. It is anticipated that the patient will be transitioned to Velcro compression garments for long-term use. We are to collaborate with the patient to obtain CircAid Velcro compression garments for each lower extremity. We are to seek approval for mechanical, pneumatic compression pumps as well. Patient will return in 1 week for reassessment. Influenza vaccine was not administered today. Patient is not a smoker. The patient is 5 feet 3 inches tall. She weighs 180 pounds. Her BMI is 31.8, which places her in a class I obesity category. Weight loss has been recommended, in collaboration with her primary care physician in this regard has been advised.
[2019-11-02 10:01] VITALS: BP 164/54; PULSE 75; RESP 18; TEMP 36.6; BMI 31.8
[2019-11-05 15:36] VITALS: BP 156/69; PULSE 59; RESP 18; TEMP 36.9; BMI 31.8
--- NOTE | 2019-11-05 16:15 | HP.PCM_ITS ---
(1) Leg swelling Status: Chronic Current Visit: Yes Code(s): M79.89 - Other specified soft tissue disorders (2) Edema of both legs Status: Chronic Current Visit: Yes Code(s): R60.0 - Localized edema (3) Venous hypertension, chronic, with ulcer Status: Chronic Current Visit: Yes Code(s): I87.319 - Chronic venous hypertension (idiopathic) with ulcer of unspecified lower extremity; L97.909 - Non-pressure chronic ulcer of unspecified part of unspecified lower leg with unspecified severity (4) Venous stasis ulcer Status: Chronic Current Visit: Yes Qualifiers: Venous stasis ulcer site: calf Varicose vein presence: with varicose veins Laterality: right Non-pressure ulcer stage: with fat layer exposed Larry lified Code(s): I83.012 - Varicose veins of right lower extremity with ulcer of calf; L97.212 - Non-pressure chronic ulcer of right calf with fat layer exposed Code(s): I83.009 - Varicose veins of unspecified lower extremity with ulcer of unspecified site; L97.909 - Non-pressure chronic ulcer of unspecified part of unspecified lower leg with unspecified severity (5) Lymphedema Status: Chronic Current Visit: Yes Code(s): I89.0 - Lymphedema, not elsewhere classified (6) Obesity (BMI 30.0-34.9) Status: Chronic Current Visit: Yes Code(s): E66.9 - Obesity, unspecified (7) CAD (coronary artery disease) Status: Chronic Current Visit: No Code(s): I25.10 - Atherosclerotic heart disease of [place] coronary artery without angina pectoris (8) Diabetes mellitus Status: Chronic Current Visit: No Code(s): E11.9 - Type 2 diabetes mellitus without complications (9) Hypertension Status: Chronic Current Visit: No Code(s): I10 - Essential (primary) hypertension (10) History of DE (myocardial infarction) Status: Chronic Current Visit: No Code(s): I25.2 - Old myocardial infarction (11) Hypothyroidism Status: Chronic Current Visit: No Code(s): E03.9 - Hypothyroidism, unspecified (12) Renal failure Status: Chronic Current Visit: No Code(s): N19 - Unspecified kidney failure (13) Hyperlipidemia Status: Chronic Current Visit: No Code(s): E78.5 - Hyperlipidemia, unspecified (14) Debility Status: Chronic Current Visit: Yes Code(s): R53.81 - Other malaise (15) Dependent edema Status: Chronic Current Visit: Yes Code(s): R60.9 - Edema, unspecified History of Present Illness Date of Service: 11/05/19 Chief Complaint: Severe swelling, edema, and lymphedema in the lower extremities bilaterally, with ulceration of the right anterior tibial surface History of Wound: This is a 79-year-old female who presented with severe swelling, edema, and lymphedema in the lower extremities bilaterally. In addition, she has an ulceration on the right anterior tibial surface, said to have been present for approximately 6 weeks. It initially occurred approximately 6 weeks prior to admission, having developed spontaneously. Initially, according to the patient, the area became blistered, and subsequently opened to form an ulceration. Patient is not active. She spends long hours each day sitting idlely. She sleeps in a chair. When ambulatory, she requires the use of a cane or walker. She is mildly obese. Past Medical History Past Medical History: Chronic Problems Leg swelling (Chronic) Edema of both legs (Chronic) Venous hypertension, chronic, with ulcer (Chronic) Venous stasis ulcer (Chronic) Lymphedema (Chronic) Obesity (BMI 30.0-34.9) (Chronic) CAD (coronary artery disease) (Chronic) Diabetes mellitus (Chronic) Hypertension (Chronic) History of DE (myocardial infarction) (Chronic) Hypothyroidism (Chronic) Renal failure (Chronic) Hyperlipidemia (Chronic) Debility (Chronic) Dependent edema (Chronic) Surgical History: - - Patient is undergone partial hysterectomy in the past. She is also undergone cholecystectomy. Coronary revascularization was performed approximately 6 years ago. The patient is a G3, P3 Ab0. Allergies/Adverse Reactions: Allergies indomethacin [From Indocin] Allergy (Verified 08/21/19 11:29) Vomiting Home Medications: Ambulatory Orders Medication Instructions Recorded Aspirin [Aspir 81] 81 mg PO DAILY 08/21/19 Atorvastatin Calcium 80 mg PO DAILY 08/21/19 Chlorthalidone 50 mg PO DAILY 08/21/19 Cholecalciferol (Vitamin D3) 2,000 unit PO DAILY 08/21/19 [Vitamin D3] Digoxin [Digitek] 125 mcg PO DAILY 08/21/19 Glimepiride [Amaryl] 2 mg PO DAILY 08/21/19 Hydralazine HCl 100 mg PO TID 08/21/19 Isosorbide Mononitrate [Isosorbide 30 mg PO DAILY 08/21/19 Mononitrate ER] Levothyroxine Sodium 125 mcg PO DAILY 08/21/19 Lisinopril 20 mg PO DAILY 08/21/19 Metoprolol Tartrate 50 mg PO BID 08/21/19 - Family History Paternal - - Patient's father at the age of 56 with a history of myocardial infarction. The patient's mother at the age of 56 with history of breast cancer. Smoking Status: Never smoker Tobacco Use: Non-smoker Review of Systems Constitutional: Denies: Chills, Fever, Weight Change Eyes: Denies: Pain, Vision Change HEENT: Denies: Difficulty Hearing, Difficulty Swallowing, Sinus Congestion Cardiovascular: Denies: Chest Pain, Palpitations Respiratory: Denies: Cough, Shortness of Breath Gastrointestinal: Denies: Diarrhea, Nausea, Vomiting Genitourinary: Denies: Dysuria, Hematuria Endocrine: Denies: Heat/ Cold Intolerance, Polydipsia, Polyuria Hematologic/ Lymphatic: Denies: Easy Bruising, Easy Bleeding - Physical Exam Vital Signs Temp Pulse Resp BP 98.4 F 59 L 18 156/69 H 11/05/19 15:36 11/05/19 15:36 11/05/19 15:36 11/05/19 15:36 General: Alert, Oriented x3, Cooperative, No apparent distress, Well developed, Well nourished, - - The patient is obese. HEENT: Atraumatic, PERRLA, EOMI, Normocephalic Oral: Moist Mucosa Neck: No JVD Lungs: Normal air movement Abdomen: Non-Distended Extremities: No clubbing, No cyanosis, No Calf Tenderness, - - Swelling, edema, and lymphedema persist in the lower extremities bilaterally. It is most notable in the right lower extremity. The ulceration on the right anterior tibial surface persists, much smaller in size than previously noted. There are increasing areas of epithelialization. There is no sign of infection or cellulitis. There is a mild amount of bioburden. Dimensions are documented elsewhere. Skin: No rashes Wound Measurements and Assessment WC - Nurse 1 - General Ulcer Measurement Start: 10/30/19 10:24 Freq: Status: Active Protocol: Activity Type Activity Date Activity User E-Sign Co-Sign Detail Recorded Client Recorded Date Recorded By Document 11/05/19 15:36 MW [id number] 11/05/19 15:43 MW 11/05/19 15:36 Wound Center Nurse 1 [Ulcer Assessment] 1-right sinclair -Combined with other wound No -Current Size (cm) - Length 13.0 -Current Size (cm) - Width 9.0 -Current Size (cm) - Depth 0.1 -Total Square Cm 117.00 -Photo Taken No -Epithelialization Small 1-33% -Tunneling No -Undermining/Tunneling No -Circular Undermining No -Exudate Amt Large -Exudate Type Sanguineous -Wound Margin Flat & Intact -Granulation Amt Large (67-100%) -Granulation Quality Red -Slough/Fibrin Yes -Necrosis Amt Small (1-33%) -Necrotic Tissue Type Adherent Slough -Structure Exposed N/A -Texture (Ileana-wound Skin Appearance) Assessed, Excoriation, Localized Edema -Moisture (Ileana-wound Skin Appearance Assessed, ) Maceration -Color (Ileana-wound Skin Appearance) No Abnormality, Assessed, Ecchymosis -Tenderness on Palpation (Ileana-wound No Skin Appearance) -Ulcer Cleansing SOAP AND WATER -Foul Odor after Cleansing No -Anesthetic Used 4% Lidocaine Solution [Edema Assessment] -Lower Limb Edema Present Yes -Right Calf (cm) 43.5 -Right Ankle (cm) 29.7 -Left Calf (cm) 44.5 -Left Ankle (cm) 30.5 WC - Nurse 2 - General Ulcer CM Notes Start: 10/30/19 10:24 Freq: Status: Active Protocol: Activity Type Activity Date Activity User E-Sign Co-Sign Detail Recorded Client Recorded Date Recorded By Document 11/05/19 16:05 DV [id number] 11/05/19 16:10 DV 11/05/19 16:05 Wound Center Nurse 2 [Procedure/Treatment] 1-right sinclair -Time 16:09 -Correct Patient Yes -Correct Side, Site, Position Yes -Correct Procedure Yes -Procedure Performed Yes -Type of Procedure Debridement -Clinical Debridement Subcutaneous -Post Debridement Size (cm) - Length 14.2 -Post Debridement Size (cm) - Width 10.0 -Post Debridement Size (cm) - Depth 0.1 -Total Square Cm 142.00 -Wound/Ulcer Outcome Not Healed -Ulcer Cleansing Rinsed/ Irrigated with Saline -Foul Odor after Cleansing No -Bioengineered Tissue No -Bleeding Controlled with Pressure -Offloading No -Treatment Response Procedure Tolerated Well [See Physician Procedure note for Specifics] Pain Scale: 0-10 Numeric [Pain] -Is Patient Pain Free? Yes Musculoskeletal: No Muscle Wasting Neurological: Cranial nerves II-XII grossly intact, Neuro grossly intact Psych/Mental Status: Normal Affect, Appropriate, Alert and oriented to time, place, person, mood and affect Debridement Note Post-Debridement Measurements/Treatment WC - Nurse 2 - General Ulcer CM Notes Start: 10/30/19 10:24 Freq: Status: Active Protocol: Activity Type Activity Date Activity User E-Sign Co-Sign Detail Recorded Client Recorded Date Recorded By Document 10/30/19 11:00 DV [id number] 10/30/19 11:02 DV Document 11/05/19 16:05 DV [id number] 11/05/19 16:10 DV 10/30/19 11/05/19 11:00 16:05 Wound Center Nurse 2 1-right sinclair -Time 11:01 16:09 -Correct Patient Yes Yes -Correct Side, Site, Position Yes Yes -Correct Procedure Yes Yes -Procedure Performed Yes Yes -Type of Procedure Debridement Debridement -Clinical Debridement Subcutaneous Subcutaneous -Post Debridement Size (cm) - Length 13.0 14.2 -Post Debridement Size (cm) - Width 12.8 10.0 -Post Debridement Size (cm) - Depth 0.1 0.1 -Total Square Cm 166.40 142.00 -Wound/Ulcer Outcome Not Healed Not Healed -Ulcer Cleansing Rinsed/ Irrigated with Saline -Foul Odor after Cleansing No -Bioengineered Tissue No -Bleeding Controlled with Pressure -Offloading No -Treatment Response Procedure Tolerated Well Pain Scale: 0-10 Numeric Is Patient Pain Free? Yes Laterality: Right - Anterior tibial surface Type of Debridement: Excisional debridement Anesthesia Used: 5% Lidocaine Gel Depth: Down to and including healthy tissue, in the subcutaneous layer Percentage of wound debrided: 100 Instrument Used: 5mm curette Tissue Removed: Bioburden and nonviable tissue Severity: Fat Layer Exposed Amount of bleeding with debridement: Mild Bleeding Controlled with: Compression and gauze Patient tolerated procedure well Assessment/Plan Active Problems Leg swelling (Chronic) Edema of both legs (Chronic) Venous hypertension, chronic, with ulcer (Chronic) Venous stasis ulcer (Chronic) Lymphedema (Chronic) Obesity (BMI 30.0-34.9) (Chronic) Debility (Chronic) Dependent edema (Chronic) Assessment: This is a 79-year-old obese female with multiple pre-existing medical conditions. These include, but are not limited to, diabetes mellitus, coronary artery disease, hyperlipidemia, hypertension, hypothyroidism, renal insufficiency, etc. She has significant swelling, edema, and lymphedema in the lower extremities bilaterally, with an associated open ulceration on the right anterior tibial surface. Her presenting symptoms and manifestations appear to be related to lifestyle factors. She is sedentary, and sits for long periods each day. Furthermore, the patient sleeps in an upright position. She is obese, and not active. It appears as though these lifestyle factors have resulted in significant swelling, edema, and lymphedema in the patient's lower extremities, which have more recently resulted in the development of an ulceration on the right anterior tibial surface. The patient has demonstrated mild improvement in recent weeks, with the implementation of conservative treatment measures. Plan: The patient has been advised to elevate her lower extremities as much as possible. The means by which this is to be accomplished has been discussed in detail with the patient and with her daughter, who was at the bedside. The patient's legs are to be elevated to heart level, or higher. This is to be accomplished as much as possible, even during daytime hours. The patient has been advised to sleep on a flat mattress at night. Activity has been encouraged, though the patient is somewhat limited by her physical status. She has been urged to refrain from prolonged, idle standing and sitting. Weight loss has been recommended. We are to continue compression to the lower extremities by means of 3M 2 layer compression wraps bilaterally. We are to use Aquacel Silver topically to the large ulceration on the right anterior tibial surface. These compression wraps are to be changed twice weekly. This compression has been tolerated well thus far. The patient underwent laboratory testing, performed at [facility], the results of which are as follows: White blood count 8.6, hemoglobin 9.4, hematocrit 28.2, platelets 248,000, sodium 142, potassium 5.1, chloride 110, glucose 120, BUN 47, creatinine 2, calcium 9.5, total protein 6.4, hemoglobin A1c 6.4. A noninvasive lower extre mity arterial study was ordered, but was not performed as scheduled due to insurance issues. However, the patient has been tolerating compression wraps thus far, without any adverse consequences. Patient has been advised to optimize her nutritional intake. Optimization of the patient's glycemic control has also been recommended. It is anticipated that the patient will be transitioned to CircAid garments or [place] wraps for long-term use. We are to collaborate with the patient to obtain compression garments for each lower extremity. We are to seek approval for mechanical, pneumatic compression pumps as well. Patient will return in 1 week for reassessment. Influenza vaccine was not administered today. Patient is not a smoker. The patient is 5 feet 3 inches tall. She weighs 180 pounds. Her BMI is 31.8, which places her in a class I obesity category. Weight loss has been recommended, in collaboration with her primary care physician in this regard has been advised.
[2019-11-09 10:31] VITALS: BP 147/49; PULSE 57; RESP 20; TEMP 36.3; BMI 31.8
[2019-11-16 12:09] VITALS: BP 202/64; PULSE 70; RESP 18; TEMP 36.6; BMI 31.8
[2019-11-19 15:19] VITALS: PULSE 58; RESP 16; BMI 31.8
--- NOTE | 2019-11-19 16:13 | HP.PCM_ITS ---
(1) Leg swelling Status: Chronic Current Visit: Yes Code(s): M79.89 - Other specified soft tissue disorders (2) Edema of both legs Status: Chronic Current Visit: Yes Code(s): R60.0 - Localized edema (3) Venous hypertension, chronic, with ulcer Status: Chronic Current Visit: Yes Code(s): I87.319 - Chronic venous hypertension (idiopathic) with ulcer of unspecified lower extremity; L97.909 - Non-pressure chronic ulcer of unspecified part of unspecified lower leg with unspecified severity (4) Venous stasis ulcer Status: Chronic Current Visit: Yes Qualifiers: Venous stasis ulcer site: calf Varicose vein presence: with varicose veins Laterality: right Non-pressure ulcer stage: with fat layer exposed Larry lified Code(s): I83.012 - Varicose veins of right lower extremity with ulcer of calf; L97.212 - Non-pressure chronic ulcer of right calf with fat layer exposed Code(s): I83.009 - Varicose veins of unspecified lower extremity with ulcer of unspecified site; L97.909 - Non-pressure chronic ulcer of unspecified part of unspecified lower leg with unspecified severity (5) Lymphedema Status: Chronic Current Visit: Yes Code(s): I89.0 - Lymphedema, not elsewhere classified (6) Obesity (BMI 30.0-34.9) Status: Chronic Current Visit: Yes Code(s): E66.9 - Obesity, unspecified (7) CAD (coronary artery disease) Status: Chronic Current Visit: No Code(s): I25.10 - Atherosclerotic heart disease of [place] coronary artery without angina pectoris (8) Diabetes mellitus Status: Chronic Current Visit: No Code(s): E11.9 - Type 2 diabetes mellitus without complications (9) Hypertension Status: Chronic Current Visit: No Code(s): I10 - Essential (primary) hypertension (10) History of VT (myocardial infarction) Status: Chronic Current Visit: No Code(s): I25.2 - Old myocardial infarction (11) Hypothyroidism Status: Chronic Current Visit: No Code(s): E03.9 - Hypothyroidism, unspecified (12) Renal failure Status: Chronic Current Visit: No Code(s): N19 - Unspecified kidney failure (13) Hyperlipidemia Status: Chronic Current Visit: No Code(s): E78.5 - Hyperlipidemia, unspecified (14) Debility Status: Chronic Current Visit: Yes Code(s): R53.81 - Other malaise (15) Dependent edema Status: Chronic Current Visit: Yes Code(s): R60.9 - Edema, unspecified History of Present Illness Date of Service: 11/19/19 Chief Complaint: Severe swelling, edema, and lymphedema in the lower extremities bilaterally, with ulceration of the right anterior tibial surface History of Wound: This is a 79-year-old female who presented with severe swelling, edema, and lymphedema in the lower extremities bilaterally. In addition, she has an ulceration on the right anterior tibial surface, said to have been present for approximately 6 weeks. It initially occurred approximately 6 weeks prior to admission, having developed spontaneously. Initially, according to the patient, the area became blistered, and subsequently opened to form an ulceration. Patient is not active. She spends long hours each day sitting idlely. She sleeps in a chair. When ambulatory, she requires the use of a cane or walker. She is mildly obese. Past Medical History Past Medical History: Chronic Problems Leg swelling (Chronic) Edema of both legs (Chronic) Venous hypertension, chronic, with ulcer (Chronic) Venous stasis ulcer (Chronic) Lymphedema (Chronic) Obesity (BMI 30.0-34.9) (Chronic) CAD (coronary artery disease) (Chronic) Diabetes mellitus (Chronic) Hypertension (Chronic) History of VT (myocardial infarction) (Chronic) Hypothyroidism (Chronic) Renal failure (Chronic) Hyperlipidemia (Chronic) Debility (Chronic) Dependent edema (Chronic) Surgical History: - - Patient is undergone partial hysterectomy in the past. She is also undergone cholecystectomy. Coronary revascularization was performed approximately 6 years ago. The patient is a G3, P3 Ab0. Allergies/Adverse Reactions: Allergies indomethacin [From Indocin] Allergy (Verified 08/21/19 11:29) Vomiting Home Medications: Ambulatory Orders Medication Instructions Recorded Aspirin [Aspir 81] 81 mg PO DAILY 08/21/19 Atorvastatin Calcium 80 mg PO DAILY 08/21/19 Chlorthalidone 50 mg PO DAILY 08/21/19 Cholecalciferol (Vitamin D3) 2,000 unit PO DAILY 08/21/19 [Vitamin D3] Digoxin [Digitek] 125 mcg PO DAILY 08/21/19 Glimepiride [Amaryl] 2 mg PO DAILY 08/21/19 Hydralazine HCl 100 mg PO TID 08/21/19 Isosorbide Mononitrate [Isosorbide 30 mg PO DAILY 08/21/19 Mononitrate ER] Levothyroxine Sodium 125 mcg PO DAILY 08/21/19 Lisinopril 20 mg PO DAILY 08/21/19 Metoprolol Tartrate 50 mg PO BID 08/21/19 - Family History Paternal - - Patient's father at the age of 56 with a history of myocardial infarction. The patient's mother at the age of 56 with history of breast cancer. Smoking Status: Never smoker Tobacco Use: Non-smoker Review of Systems Constitutional: Denies: Chills, Fever, Weight Change Eyes: Denies: Pain, Vision Change HEENT: Denies: Difficulty Hearing, Difficulty Swallowing, Sinus Congestion Cardiovascular: Denies: Chest Pain, Palpitations Respiratory: Denies: Cough, Shortness of Breath Gastrointestinal: Denies: Diarrhea, Nausea, Vomiting Genitourinary: Denies: Dysuria, Hematuria Endocrine: Denies: Heat/ Cold Intolerance, Polydipsia, Polyuria Hematologic/ Lymphatic: Denies: Easy Bruising, Easy Bleeding - Physical Exam Vital Signs Temp Pulse Resp BP 97.9 F 58 L 16 202/64 H 11/16/19 12:09 11/19/19 15:19 11/19/19 15:19 11/16/19 12:09 General: Alert, Oriented x3, Cooperative, No apparent distress, Well developed, Well nourished HEENT: Atraumatic, PERRLA, EOMI, Normocephalic Oral: Moist Mucosa Neck: No JVD Lungs: Normal air movement Abdomen: Non-Distended, Obese Extremities: No clubbing, No cyanosis, No Calf Tenderness, - - Swelling, edema, and lymphedema persist in the patient's lower extremities bilaterally. It is most notable in the right lower extremity. The ulceration of the right anterior tibial surface persists. There are increasing areas of epithelialization. There is a large amount of sloughing epithelial tissue. There is no sign of infection or cellulitis. There is a moderate amount of bioburden. Dimensions are documented elsewhere. Skin: No rashes Wound Measurements and Assessment WC - Nurse 1 - General Ulcer Measurement Start: 10/30/19 10:24 Freq: Status: Active Protocol: Activity Type Activity Date Activity User E-Sign Co-Sign Detail Recorded Client Recorded Date Recorded By Document 11/19/19 15:19 [facility] [id number] 11/19/19 15:33 [facility] 11/19/19 15:19 Wound Center Nurse 1 [Ulcer Assessment] 1-right sinclair -Combined with other wound No -Current Size (cm) - Length 8.7 -Current Size (cm) - Width 3.3 -Current Size (cm) - Depth 0.1 -Total Square Cm 28.71 -Photo Taken No -Epithelialization Small 1-33% -Tunneling No -Undermining/Tunneling No -Circular Undermining No -Exudate Amt Small -Exudate Type Serosanguineous -Wound Margin Flat & Intact -Granulation Amt Large (67-100%) -Granulation Quality Red -Slough/Fibrin Yes -Necrosis Amt Small (1-33%) -Necrotic Tissue Type Adherent Slough -Texture (Ileana-wound Skin Appearance) Assessed, Excoriation, Scarring -Moisture (Ileana-wound Skin Appearance Assessed,Dry/ ) Scaly -Color (Ileana-wound Skin Appearance) Assessed, Erythema -Temperature (Ileana-wound Skin No Abnormality Appearance) (Pt Warm) -Tenderness on Palpation (Ileana-wound No Skin Appearance) -Ulcer Cleansing soapy water -Foul Odor after Cleansing No -Anesthetic Used 4% Lidocaine Solution [Edema Assessment] -Lower Limb Edema Present Yes -Right Calf (cm) 39.9 -Right Ankle (cm) 25.5 -Left Calf (cm) 39 -Left Ankle (cm) 29.5 WC - Nurse 2 - General Ulcer CM Notes Start: 10/30/19 10:24 Freq: Status: Active Protocol: Activity Type Activity Date Activity User E-Sign Co-Sign Detail Recorded Client Recorded Date Recorded By Document 11/19/19 16:09 DV [id number] 11/19/19 16:11 DV 11/19/19 16:09 Wound Center Nurse 2 [Procedure/Treatment] 1-right sinclair -Time 16:10 -Correct Patient Yes -Correct Side, Site, Position Yes -Correct Procedure Yes -Procedure Performed Yes -Type of Procedure Debridement -Clinical Debridement Subcutaneous -Post Debridement Size (cm) - Length 10.0 -Post Debridement Size (cm) - Width 4.2 -Post Debridement Size (cm) - Depth 0.1 -Total Square Cm 42.00 -Wound/Ulcer Outcome Converted -Ulcer Cleansing Rinsed/ Irrigated with Saline -Foul Odor after Cleansing No -Bioengineered Tissue No -Bleeding Controlled with Pressure -Offloading No -Treatment Response Procedure Tolerated Well [See Physician Procedure note for Specifics] Pain Scale: 0-10 Numeric [Pain] -Is Patient Pain Free? Yes Neurological: Cranial nerves II-XII grossly intact, Neuro grossly intact Psych/Mental Status: Normal Affect, Appropriate, Alert and oriented to time, place, person, mood and affect Debridement Note Post-Debridement Measurements/Treatment WC - Nurse 2 - General Ulcer CM Notes Start: 10/30/19 10:24 Freq: Status: Active Protocol: Activity Type Activity Date Activity User E-Sign Co-Sign Detail Recorded Client Recorded Date Recorded By Document 10/30/19 11:00 DV [id number] 10/30/19 11:02 DV Document 11/05/19 16:05 DV [id number] 11/05/19 16:10 DV Document 11/19/19 16:09 DV [id number] 11/19/19 16:11 DV 10/30/19 11/05/19 11/19/19 11:00 16:05 16:09 Wound Center Nurse 2 1-right sinclair -Time 11:01 16:09 16:10 -Correct Patient Yes Yes Yes -Correct Side, Site, Position Yes Yes Yes -Correct Procedure Yes Yes Yes -Procedure Performed Yes Yes Yes -Type of Procedure Debridement Debridement Debridement -Clinical Debridement Subcutaneous Subcutaneous Subcutaneous -Post Debridement Size (cm) - Length 13.0 14.2 10.0 -Post Debridement Size (cm) - Width 12.8 10.0 4.2 -Post Debridement Size (cm) - Depth 0.1 0.1 0.1 -Total Square Cm 166.40 142.00 42.00 -Wound/Ulcer Outcome Not Healed Not Healed Converted -Ulcer Cleansing Rinsed/ Rinsed/ Irrigated with Irrigated with Saline Saline -Foul Odor after Cleansing No No -Bioengineered Tissue No No -Bleeding Controlled with Pressure Pressure -Offloading No No -Treatment Response Procedure Procedure Tolerated Well Tolerated Well Pain Scale: 0-10 Numeric Is Patient Pain Free? Yes Yes Laterality: Right - Anterior tibial surface Type of Debridement: Excisional debridement Anesthesia Used: 5% Lidocaine Gel Depth: Down to and including healthy tissue, in the subcutaneous layer Percentage of wound debrided: 100 Instrument Used: 5mm curette Tissue Removed: Bioburden and nonviable tissue Severity: Fat Layer Exposed Amount of bleeding with debridement: Mild Bleeding Controlled with: Compression and gauze Patient tolerated procedure well Assessment/Plan Active Problems Leg swelling (Chronic) Edema of both legs (Chronic) Venous hypertension, chronic, with ulcer (Chronic) Venous stasis ulcer (Chronic) Lymphedema (Chronic) Obesity (BMI 30.0-34.9) (Chronic) Debility (Chronic) Dependent edema (Chronic) Assessment: This is a 79-year-old obese female with multiple pre-existing medical conditions. These include, but are not limited to, diabetes mellitus, coronary artery disease, hyperlipidemia, hypertension, hypothyroidism, renal insufficiency, etc. She has significant swelling, edema, and lymphedema in the lower extremities bilaterally, with an associated open ulceration on the right anterior tibial surface. Her presenting symptoms and manifestations appear to be related to lifestyle factors. She is sedentary, and sits for long periods each day. Furthermore, the patient sleeps in an upright position. She is obese, and not active. It appears as though these lifestyle factors have resulted in significant swelling, edema, and lymphedema in the patient's lower extremities, which have more recently resulted in the development of an ulceration on the right anterior tibial surface. The patient has demonstrated mild improvement in recent weeks, with the implementation of conservative treatment measures. Plan: The patient has been advised to elevate her lower extremities as much as possible. The means by which this is to be accomplished has been discussed in detail with the patient and with her daughter, who was at the bedside. The patient's legs are to be elevated to heart level, or higher. This is to be acco mplished as much as possible, even during daytime hours. The patient has been advised to sleep on a flat mattress at night. Activity has been encouraged, though the patient is somewhat limited by her physical status. She has been urged to refrain from prolonged, idle standing and sitting. Weight loss has been recommended. We are to continue compression to the lower extremities by means of 3M 2 layer compression wraps bilaterally. We are to implement the use of Melgisorb Ag topically to the ulceration on the right anterior tibial surface, an absorptive dressing due to suspected exudative drainage from the ulcerated site. The 3M 2 layer compression wraps and Melgisorb Ag are to be changed twice weekly. This compression has been tolerated well thus far. The patient underwent laboratory testing, performed at [facility], the results of which are as follows: White blood count 8.6, hemoglobin 9.4, hematocrit 28.2, platelets 248,000, sodium 142, potassium 5.1, chloride 110, gl ucose 120, BUN 47, creatinine 2, calcium 9.5, total protein 6.4, hemoglobin A1c 6.4. A noninvasive lower extremity arterial study was ordered, but was not performed as scheduled due to insurance issues. However, the patient has been tolerating compression wraps thus far, without any adverse consequences. Patient has been advised to optimize her nutritional intake. Optimization of the patient's glycemic control has also been recommended. It is anticipated that the patient will be transitioned to CircAid garments, for which efforts are currently underway for procurement. Patient is also to receive mechanical pneumatic compression pumps for her use several times daily as well. The patient will return in 1 week for reassessment. Influenza vaccine was not administered today. Patient is not a smoker. The patient is 5 feet 3 inches tall. She weighs 180 pounds. Her BMI is 31.8, which places her in a class I obesity category. Weight loss has been recommended, in collaboration with her primary care physician in this regard has been advised.
[2019-11-23 12:38] VITALS: BP 131/73; PULSE 70; RESP 18; TEMP 36.4; BMI 31.8
[2019-11-26 13:58] VITALS: BP 185/74; PULSE 56; RESP 18; BMI 31.8
--- NOTE | 2019-11-26 14:22 | HP.PCM_ITS ---
(1) Leg swelling Status: Chronic Current Visit: Yes Code(s): M79.89 - Other specified soft tissue disorders (2) Edema of both legs Status: Chronic Current Visit: Yes Code(s): R60.0 - Localized edema (3) Venous hypertension, chronic, with ulcer Status: Chronic Current Visit: Yes Code(s): I87.319 - Chronic venous hypertension (idiopathic) with ulcer of unspecified lower extremity; L97.909 - Non-pressure chronic ulcer of unspecified part of unspecified lower leg with unspecified severity (4) Venous stasis ulcer Status: Chronic Current Visit: Yes Qualifiers: Venous stasis ulcer site: calf Varicose vein presence: with varicose veins Laterality: right Non-pressure ulcer stage: with fat layer exposed Larry lified Code(s): I83.012 - Varicose veins of right lower extremity with ulcer of calf; L97.212 - Non-pressure chronic ulcer of right calf with fat layer exposed Code(s): I83.009 - Varicose veins of unspecified lower extremity with ulcer of unspecified site; L97.909 - Non-pressure chronic ulcer of unspecified part of unspecified lower leg with unspecified severity (5) Lymphedema Status: Chronic Current Visit: Yes Code(s): I89.0 - Lymphedema, not elsewhere classified (6) Obesity (BMI 30.0-34.9) Status: Chronic Current Visit: Yes Code(s): E66.9 - Obesity, unspecified (7) CAD (coronary artery disease) Status: Chronic Current Visit: No Code(s): I25.10 - Atherosclerotic heart disease of [place] coronary artery without angina pectoris (8) Diabetes mellitus Status: Chronic Current Visit: No Code(s): E11.9 - Type 2 diabetes mellitus without complications (9) Hypertension Status: Chronic Current Visit: No Code(s): I10 - Essential (primary) hypertension (10) History of [place] (myocardial infarction) Status: Chronic Current Visit: No Code(s): I25.2 - Old myocardial infarction (11) Hypothyroidism Status: Chronic Current Visit: No Code(s): E03.9 - Hypothyroidism, unspecified (12) Renal failure Status: Chronic Current Visit: No Code(s): N19 - Unspecified kidney failure (13) Hyperlipidemia Status: Chronic Current Visit: No Code(s): E78.5 - Hyperlipidemia, unspecified (14) Debility Status: Chronic Current Visit: Yes Code(s): R53.81 - Other malaise (15) Dependent edema Status: Chronic Current Visit: Yes Code(s): R60.9 - Edema, unspecified History of Present Illness Date of Service: 11/26/19 Chief Complaint: Severe swelling, edema, and lymphedema in the lower extremities bilaterally, with ulceration of the right anterior tibial surface History of Wound: This is a 79-year-old female who presented with severe swelling, edema, and lymphedema in the lower extremities bilaterally. In addition, she has an ulceration on the right anterior tibial surface, said to have been present for approximately 6 weeks. It initially occurred approximately 6 weeks prior to admission, having developed spontaneously. Initially, according to the patient, the area became blistered, and subsequently opened to form an ulceration. Patient is not active. She spends long hours each day sitting idlely. She sleeps in a chair. When ambulatory, she requires the use of a cane or walker. She is obese. Past Medical History Past Medical History: Chronic Problems Leg swelling (Chronic) Edema of both legs (Chronic) Venous hypertension, chronic, with ulcer (Chronic) Venous stasis ulcer (Chronic) Lymphedema (Chronic) Obesity (BMI 30.0-34.9) (Chronic) CAD (coronary artery disease) (Chronic) Diabetes mellitus (Chronic) Hypertension (Chronic) History of [place] (myocardial infarction) (Chronic) Hypothyroidism (Chronic) Renal failure (Chronic) Hyperlipidemia (Chronic) Debility (Chronic) Dependent edema (Chronic) Surgical History: - - Patient is undergone partial hysterectomy in the past. She is also undergone cholecystectomy. Coronary revascularization was performed approximately 6 years ago. The patient is a G3, P3 Ab0. Allergies/Adverse Reactions: Allergies indomethacin [From Indocin] Allergy (Verified 08/21/19 11:29) Vomiting Home Medications: Ambulatory Orders Medication Instructions Recorded Aspirin [Aspir 81] 81 mg PO DAILY 08/21/19 Atorvastatin Calcium 80 mg PO DAILY 08/21/19 Chlorthalidone 50 mg PO DAILY 08/21/19 Cholecalciferol (Vitamin D3) 2,000 unit PO DAILY 08/21/19 [Vitamin D3] Digoxin [Digitek] 125 mcg PO DAILY 08/21/19 Glimepiride [Amaryl] 2 mg PO DAILY 08/21/19 Hydralazine HCl 100 mg PO TID 08/21/19 Isosorbide Mononitrate [Isosorbide 30 mg PO DAILY 08/21/19 Mononitrate ER] Levothyroxine Sodium 125 mcg PO DAILY 08/21/19 Lisinopril 20 mg PO DAILY 08/21/19 Metoprolol Tartrate 50 mg PO BID 08/21/19 - Family History Paternal - - Patient's father at the age of 56 with a history of myocardial infarction. The patient's mother at the age of 56 with history of breast cancer. Smoking Status: Never smoker Tobacco Use: Non-smoker Review of Systems Constitutional: Denies: Chills, Fever, Weight Change Eyes: Denies: Pain, Vision Change HEENT: Denies: Difficulty Hearing, Difficulty Swallowing, Sinus Congestion Cardiovascular: Denies: Chest Pain, Palpitations Respiratory: Denies: Cough, Shortness of Breath Gastrointestinal: Denies: Diarrhea, Nausea, Vomiting Genitourinary: Denies: Dysuria, Hematuria Endocrine: Denies: Heat/ Cold Intolerance, Polydipsia, Polyuria Hematologic/ Lymphatic: Denies: Easy Bruising, Easy Bleeding - Physical Exam Vital Signs Temp Pulse Resp BP 97.5 F L 56 L 18 185/74 H 11/23/19 12:38 11/26/19 13:58 11/26/19 13:58 11/26/19 13:58 General: Alert, Oriented x3, Cooperative, No apparent distress, Well developed, Well nourished, - - The patient generally has the odor of urine. HEENT: Atraumatic, PERRLA, EOMI, Normocephalic Oral: Moist Mucosa Neck: No JVD Lungs: Normal air movement Abdomen: Non-Distended, Obese Extremities: No clubbing, No cyanosis, No Calf Tenderness, - - Bilateral lower extremity swelling, edema, and lymphedema persist. It is most notable in the right lower extremity. The ulceration of the right anterior tibial surface persists as well, with areas of epithelialization. There are also areas of sloughing epidermis. There is no obvious sign of infection or cellulitis. Dimensions are documented elsewhere. There is a moderate amount of bioburden and nonviable tissue. Wound Measurements and Assessment WC - Nurse 1 - General Ulcer Measurement Start: 10/30/19 10:24 Freq: Status: Active Protocol: Activity Type Activity Date Activity User E-Sign Co-Sign Detail Recorded Client Recorded Date Recorded By Document 11/26/19 13:58 BS [id number] 11/26/19 14:10 BS 11/26/19 13:58 Wound Center Nurse 1 [Ulcer Assessment] 1-right sinclair -Combined with other wound No -Current Size (cm) - Length 14 -Current Size (cm) - Width 16 -Current Size (cm) - Depth 0.1 -Total Square Cm 224 -Exudate Amt Medium -Granulation Quality Hyper- granulation, [place],Red -Texture (Ileana-wound Skin Appearance) Assessed, Localized Edema -Moisture (Ileana-wound Skin Appearance Assessed, ) Weeping,Dry/ Scaly -Color (Ileana-wound Skin Appearance) Assessed, Hemosiderin Staining -Temperature (Ileana-wound Skin No Abnormality Appearance) (Pt Warm) -Tenderness on Palpation (Ileana-wound No Skin Appearance) -Ulcer Cleansing Soap and water -Foul Odor after Cleansing Yes -Anesthetic Used 4% Lidocaine Solution Neurological: Cranial nerves II-XII grossly intact, Neuro grossly intact Psych/Mental Status: Normal Affect, Appropriate, Alert and oriented to time, place, person, mood and affect Debridement Note Post-Debridement Measurements/Treatment WC - Nurse 2 - General Ulcer CM Notes Start: 10/30/19 10:24 Freq: Status: Active Protocol: Activity Type Activity Date Activity User E-Sign Co-Sign Detail Recorded Client Recorded Date Recorded By Document 10/30/19 11:00 DV [id number] 10/30/19 11:02 DV Document 11/05/19 16:05 DV [id number] 11/05/19 16:10 DV Document 11/19/19 16:09 DV [id number] 11/19/19 16:11 DV 10/30/19 11/05/19 11/19/19 11:00 16:05 16:09 Wound Center Nurse 2 1-right sinclair -Time 11:01 16:09 16:10 -Correct Patient Yes Yes Yes -Correct Side, Site, Position Yes Yes Yes -Correct Procedure Yes Yes Yes -Procedure Performed Yes Yes Yes -Type of Procedure Debridement Debridement Debridement -Clinical Debridement Subcutaneous Subcutaneous Subcutaneous -Post Debridement Size (cm) - Length 13.0 14.2 10.0 -Post Debridement Size (cm) - Width 12.8 10.0 4.2 -Post Debridement Size (cm) - Depth 0.1 0.1 0.1 -Total Square Cm 166.40 142.00 42.00 -Wound/Ulcer Outcome Not Healed Not Healed Converted -Ulcer Cleansing Rinsed/ Rinsed/ Irrigated with Irrigated with Saline Saline -Foul Odor after Cleansing No No -Bioengineered Tissue No No -Bleeding Controlled with Pressure Pressure -Offloading No No -Treatment Response Procedure Procedure Tolerated Well Tolerated Well Pain Scale: 0-10 Numeric Is Patient Pain Free? Yes Yes Laterality: Right - Anterior tibial surface Type of Debridement: Excisional debridement Anesthesia Used: 5% Lidocaine Gel Depth: Down to and including healthy tissue, in the subcutaneous layer Percentage of wound debrided: 100 Instrument Used: 5mm curette Tissue Removed: Bioburden and nonviable tissue Severity: Fat Layer Exposed Amount of bleeding with debridement: Mild Bleeding Controlled with: Compression and gauze Patient tolerated procedure well Assessment/Plan Active Problems Leg swelling (Chronic) Edema of both legs (Chronic) Venous hypertension, chronic, with ulcer (Chronic) Venous stasis ulcer (Chronic) Lymphedema (Chronic) Obesity (BMI 30.0-34.9) (Chronic) Debility (Chronic) Dependent edema (Chronic) Assessment: This is a 79-year-old obese female with multiple pre-existing medical conditions. These include, but are not limited to, diabetes mellitus, coronary artery disease, hyperlipidemia, hypertension, hypothyroidism, renal insufficiency, etc. She has significant swelling, edema, and lymphedema in the lower extremities bilaterally, with an associated open ulceration on the right anterior tibial surface. Her presenting symptoms and manifestations appear to be related to lifestyle factors. She is sedentary, and sits for long periods each day. Furthermore, the patient sleeps in an upright position. She is obese, and not active. It appears as though these lifestyle factors have resulted in significant swelling, edema, and lymphedema in the patient's lower extremities, which have more recently resulted in the development of an ulcerat ion on the right anterior tibial surface. The patient has demonstrated mild improvement in recent weeks, with the implementation of conservative treatment measures. However, questions as to the patient's compliance with recommended measures persist. Plan: The patient has been advised to elevate her lower extremities as much as possible. The means by which this is to be accomplished has been discussed in detail with the patient and with her daughter, who was at the bedside. The patient's legs are to be elevated to heart level, or higher. This is to be accomplished as much as possible, even during daytime hours. The patient has been advised to sleep on a flat mattress at night. Activity has been encouraged, though the patient is somewhat limited by her physical status. She has been urged to refrain from prolonged, idle standing and sitting. Weight loss has been recommended. We are to continue compression to the lower extremities by means of 3M 2 layer compression wraps bilaterally. We are to continue the use of Melgisorb Ag topically to the ulceration on the right anterior tibial surface, an absorptive dressing due to suspected exudative drainage from the ulcerated site. The 3M 2 layer compression wraps and Melgisorb Ag are to be changed twice weekly. This compression has been tolerated well thus far. The patient underwent laboratory testing, performed at [facility], the results of which are as follows: White blood count 8.6, hemoglobin 9.4, hematocrit 28.2, platelets 248,000, sodium 142, potassium 5.1, chloride 110, glucose 120, BUN 47, creatinine 2, calcium 9.5, total protein 6.4, hemoglobin A1c 6.4. A noninvasive lower extremity arterial study was ordered, but was not performed as scheduled due to insurance issues. However, the patient has been tolerating compression wraps thus far, without any adverse consequences. Patient has been advised to optimize her nutritional intake. Optimization of the patient's glycemic control has also been recommended. It is anticipated that the patient will be transitioned to CircAid garments, for which efforts are currently underway for procurement. They have not yet been obtai ronnie, and we will redouble our efforts to assist the patient in obtaining these compression garments. Patient is also awaiting receipt of mechanical pneumatic compression pumps for her use several times daily as well. Questions remain as to the patient's compliance with recommended measures. The patient will return in 1 week for reassessment. Influenza vaccine was not administered today. Patient is not a smoker. The patient is 5 feet 3 inches tall. She weighs 180 pounds. Her BMI is 31.8, which places her in a class I obesity category. Weight loss has been recommended, in collaboration with her primary care physician in this regard has been advised.
== END 2019-11-27 23:59 ==
LOC: WC 14:00
PROVIDERS: Family Provider Family Medicine; PCP Family Medicine; Visit Provider Surgery
DX: I83.018 Varicose veins of right lower extremity with ulcer other part of lower leg (principal); L97.812 Non-pressure chronic ulcer of other part of right lower leg with fat layer exposed; E11.622 Type 2 diabetes mellitus with other skin ulcer; M79.89 Other specified soft tissue disorders; R60.0 Localized edema; I89.0 Lymphedema, not elsewhere classified; I25.10 Atherosclerotic heart disease of native coronary artery without angina pectoris; I25.2 Old myocardial infarction; E11.22 Type 2 diabetes mellitus with diabetic chronic kidney disease; I12.9 Hypertensive chronic kidney disease with stage 1 through stage 4 chronic kidney disease, or unspecified chronic kidney disease; N18.9 Chronic kidney disease, unspecified; E78.5 Hyperlipidemia, unspecified; E66.9 Obesity, unspecified; Z68.31 Body mass index [BMI] 31.0-31.9, adult; Z79.899 Other long term (current) drug therapy; Z79.84 Long term (current) use of oral hypoglycemic drugs; Z79.82 Long term (current) use of aspirin; E03.9 Hypothyroidism, unspecified
CPT/HCPCS: 11042; 11045; 29581; 99212; G0463

== ENCOUNTER 2019-12-28 14:15 | Outpatient (RCR) | payer MEDICARE, SELFPAY ==
[2019-11-28 00:41] VITALS: BP 185/74; PULSE 56; RESP 18; TEMP 36.4
[2019-11-30 10:30] VITALS: BP 169/87; PULSE 67; RESP 16; TEMP 36.6; BMI 31.8
[2019-12-04 10:37] VITALS: BP 161/52; PULSE 58; RESP 18; TEMP 36.2; BMI 31.8
--- NOTE | 2019-12-04 11:25 | PCM.WC.HP ---
(1) Leg swelling Status: Chronic Current Visit: Yes Code(s): M79.89 - Other specified soft tissue disorders (2) Edema of both legs Status: Chronic Current Visit: Yes Code(s): R60.0 - Localized edema (3) Venous hypertension, chronic, with ulcer Status: Chronic Current Visit: Yes Code(s): I87.319 - Chronic venous hypertension (idiopathic) with ulcer of unspecified lower extremity; L97.909 - Non-pressure chronic ulcer of unspecified part of unspecified lower leg with unspecified severity (4) Venous stasis ulcer Status: Chronic Current Visit: Yes Qualifiers: Venous stasis ulcer site: calf Laterality: right Code(s): I83.009 - Varicose veins of unspecified lower extremity with ulcer of unspecified site; L97.909 - Non-pressure chronic ulcer of unspecified part of unspecified lower leg with unspecified severity (5) Lymphedema Status: Chronic Current Visit: Yes Code(s): I89.0 - Lymphedema, not elsewhere classified (6) Obesity (BMI 30.0-34.9) Status: Chronic Current Visit: Yes Code(s): E66.9 - Obesity, unspecified (7) CAD (coronary artery disease) Status: Chronic Current Visit: No Code(s): I25.10 - Atherosclerotic heart disease of [place] coronary artery without angina pectoris (8) Diabetes mellitus Status: Chronic Current Visit: Yes Qualifiers: Diabetes mellitus type: type 2 Code(s): E11.9 - Type 2 diabetes mellitus without complications (9) Hypertension Status: Chronic Current Visit: No Code(s): I10 - Essential (primary) hypertension (10) History of MA (myocardial infarction) Status: Chronic Current Visit: No Code(s): I25.2 - Old myocardial infarction (11) Hypothyroidism Status: Chronic Current Visit: No Code(s): E03.9 - Hypothyroidism, unspecified (12) Renal failure Status: Chronic Current Visit: No Code(s): N19 - Unspecified kidney failure (13) Hyperlipidemia Status: Chronic Current Visit: No Code(s): E78.5 - Hyperlipidemia, unspecified (14) Debility Status: Chronic Current Visit: Yes Code(s): R53.81 - Other malaise (15) Dependent edema Status: Chronic Current Visit: Yes Code(s): R60.9 - Edema, unspecified History of Present Illness Date of Service: 12/04/19 Chief Complaint: Severe swelling, edema, and lymphedema in the lower extremities bilaterally, with ulceration of the right anterior tibial surface History of Wound: This is a 79-year-old female who presented with severe swelling, edema, and lymphedema in the lower extremities bilaterally. In addition, she has an ulceration on the right anterior tibial surface, said to have been present for approximately 6 weeks. It initially occurred approximately 6 weeks prior to admission, having developed spontaneously. Initially, according to the patient, the area became blistered, and subsequently opened to form an ulceration. Patient is not active. She spends long hours each day sitting idlely. She sleeps in a chair. When ambulatory, she requires the use of a cane or walker. She is obese. Past Medical History Past Medical History: Chronic Problems Leg swelling (Chronic) Edema of both legs (Chronic) Venous hypertension, chronic, with ulcer (Chronic) Venous stasis ulcer (Chronic) Lymphedema (Chronic) Obesity (BMI 30.0-34.9) (Chronic) CAD (coronary artery disease) (Chronic) Diabetes mellitus (Chronic) Hypertension (Chronic) History of MA (myocardial infarction) (Chronic) Hypothyroidism (Chronic) Renal failure (Chronic) Hyperlipidemia (Chronic) Debility (Chronic) Dependent edema (Chronic) Surgical History: - - Patient is undergone partial hysterectomy in the past. She is also undergone cholecystectomy. Coronary revascularization was performed approximately 6 years ago. The patient is a G3, P3 Ab0. Allergies/Adverse Reactions: Allergies indomethacin [From Indocin] Allergy (Verified 08/21/19 11:29) Vomiting Home Medications: Ambulatory Orders Medication Instructions Recorded Aspirin [Aspir 81] 81 mg PO DAILY 08/21/19 Atorvastatin Calcium 80 mg PO DAILY 08/21/19 Chlorthalidone 50 mg PO DAILY 08/21/19 Cholecalciferol (Vitamin D3) 2,000 unit PO DAILY 08/21/19 [Vitamin D3] Digoxin [Digitek] 125 mcg PO DAILY 08/21/19 Glimepiride [Amaryl] 2 mg PO DAILY 08/21/19 Hydralazine HCl 100 mg PO TID 08/21/19 Isosorbide Mononitrate [Isosorbide 30 mg PO DAILY 08/21/19 Mononitrate ER] Levothyroxine Sodium 125 mcg PO DAILY 08/21/19 Lisinopril 20 mg PO DAILY 08/21/19 Metoprolol Tartrate 50 mg PO BID 08/21/19 - Family History Paternal - - Patient's father at the age of 56 with a history of myocardial infarction. The patient's mother at the age of 56 with history of breast cancer. Smoking Status: Never smoker Tobacco Use: Non-smoker Review of Systems Constitutional: Denies: Chills, Fever, Weight Change Eyes: Denies: Pain, Vision Change HEENT: Denies: Difficulty Hearing, Difficulty Swallowing, Sinus Congestion Cardiovascular: Denies: Chest Pain, Palpitations Respiratory: Denies: Cough, Shortness of Breath Gastrointestinal: Denies: Diarrhea, Nausea, Vomiting Genitourinary: Denies: Dysuria, Hematuria Endocrine: Denies: Heat/ Cold Intolerance, Polydipsia, Polyuria Hematologic/ Lymphatic: Denies: Easy Bruising, Easy Bleeding - Physical Exam Vital Signs Temp Pulse Resp BP 97.2 F L 58 L 18 161/52 H 12/04/19 10:37 12/04/19 10:37 12/04/19 10:37 12/04/19 10:37 General: Alert, Oriented x3, Cooperative, No apparent distress, Well developed, Well nourished HEENT: Atraumatic, PERRLA, EOMI, Normocephalic Oral: Moist Mucosa Neck: No JVD Lungs: Normal air movement Abdomen: Non-Distended, Obese Extremities: No clubbing, No cyanosis, No Calf Tenderness, - - Severe swelling, edema, and lymphedema persist in the lower extremities bilaterally. Additionally, there is a large ulceration on the right anterior tibial surface. It is generally clean and healthy in appearance. There is only a very small amount of bioburden. There is no sign of infection or cellulitis. Dimensions are documented elsewhere. Skin: No rashes Wound Measurements and Assessment WC - Nurse 1 - General Ulcer Measurement Start: 11/30/19 10:30 Freq: Status: Active Protocol: Activity Type Activity Date Activity User E-Sign Co-Sign Detail Recorded Client Recorded Date Recorded By Document 12/04/19 10:37 JESUS MANUEL [id number] 12/04/19 10:38 JESUS MANUEL 12/04/19 10:37 Wound Center Nurse 1 [Ulcer Assessment] 1-right sinclair -Combined with other wound No -Current Size (cm) - Length 11 -Current Size (cm) - Width 16.0 -Current Size (cm) - Depth 0.1 -Total Square Cm 176.0 -Photo Taken Yes -Epithelialization None Present -Tunneling No -Undermining/Tunneling No -Circular Undermining No -Exudate Amt Large -Exudate Type Serosanguineous -Wound Margin Flat & Intact -Granulation Amt Medium (34-66%) -Granulation Quality Red -Slough/Fibrin Yes -Necrosis Amt Medium (34-66%) -Necrotic Tissue Type Adherent Slough -Structure Exposed N/A -Texture (Ileana-wound Skin Appearance) Assessed, Excoriation, Fluctuance, Friable, Localized Edema -Moisture (Ileana-wound Skin Appearance Assessed,Dry/ ) Scaly -Color (Ileana-wound Skin Appearance) Assessed -Temperature (Ileana-wound Skin No Abnormality Appearance) (Pt Warm) -Tenderness on Palpation (Ileana-wound No Skin Appearance) -Ulcer Cleansing Wound Cleanser -Foul Odor after Cleansing No -Anesthetic Used 4% Lidocaine Solution [Edema Assessment] -Lower Limb Edema Present Yes -Right Calf (cm) 42 -Right Ankle (cm) 29.6 -Left Calf (cm) 38 -Left Ankle (cm) 29 Neurological: Cranial nerves II-XII grossly intact, Neuro grossly intact Psych/Mental Status: Normal Affect, Appropriate, Alert and oriented to time, place, person, mood and affect Debridement Note No debridement was completed today - The ulceration on the right anterior tibial surface is generally clean and healthy in appearance, with pink, healthy granulation tissue. Assessment/Plan Active Problems Leg swelling (Chronic) Edema of both legs (Chronic) Venous hypertension, chronic, with ulcer (Chronic) Venous stasis ulcer (Chronic) Lymphedema (Chronic) Obesity (BMI 30.0-34.9) (Chronic) Diabetes mellitus (Chronic) Debility (Chronic) Dependent edema (Chronic) Assessment: This is a 79-year-old obese female with multiple pre-existing medical conditions. These include, but are not limited to, diabetes mellitus, coronary artery disease, hyperlipidemia, hypertension, hypothyroidism, renal insufficiency, etc. She has significant swelling, edema, and lymphedema in the lower extremities bilaterally, with an associated open ulceration on the right anterior tibial surface. Her presenting symptoms and manifestations appear to be related to lifestyle factors. She is sedentary, and sits for long periods each day. Furthermore, the patient sleeps in an upright position. She is obese, and not active. It appears as though these lifestyle factors have resulted in significant swelling, edema, and lymphedema in the patient's lower extremities, which have more recently resulted in the development of an ulceration on the right anterior tibial surface. The patient has demonstrated mild improvement in recent weeks, with the implementation of conservative treatment measures. However, questions as to the patient's compliance with recommended measures persist. Plan: The patient has been advised to elevate her lower extremities as much as possible. The means by which this is to be accomplished has been discussed in detail with the patient and with her daughter, who was at the bedside. The patient's legs are to be elevated to heart level, or higher. This is to be accomplished as much as possible, even during daytime hours. The patient has been advised to sleep on a flat mattress at night. Activity has been encouraged, though the patient is somewhat limited by her physical status. She has been urged to refrain from prolonged, idle standing and sitting. Weight loss has been recommended. We are to implement the use of an Unna boot with compression to the right lower extremity, which will be changed twice weekly. The patient will return to our facility for that purpose. She has now obtained 1 CircAid Velcro compression garment, which will be applied daily to the left lower extremity. She also has obtained mechanical pneumatic compression pumps, which are to be used 3 times daily. The patient underwent laboratory testing, performed at [facility], the results of which are as follows: White blood count 8.6, hemoglobin 9.4, hematocrit 28.2, platelets 248,000, sodium 142, potassium 5.1, chloride 110, glucose 120, BUN 47, creatinine 2, calcium 9.5, total protein 6.4, hemoglobin A1c 6.4. A noninvasive lower extremity arterial study was ordered, but was not performed as scheduled due to insurance issues. However, the patient has been tolerating compression wraps thus far, without any adverse consequences. Patient has been advised to optimize her nutritional intake. Optimization of the patient's glycemic control has also been recommended. Questions remain as to the patient's compliance with recommended measures. The patient will return in 1 week for reassessment. Influenza vaccine was not administered today. Patient is not a smoker. The patient is 5 feet 3 inches tall. She weighs 180 pounds. Her BMI is 31.8, which places her in a class I obesity category. Weight loss has been recommended, in collaboration with her primary care physician in this regard has been advised.
[2019-12-07 11:24] VITALS: BP 188/65; PULSE 60; RESP 18; TEMP 36.2; BMI 31.8
[2019-12-11 10:58] VITALS: BP 199/87; PULSE 56; RESP 16; TEMP 36.6; BMI 31.8
--- NOTE | 2019-12-11 11:28 | PCM.WC.HP ---
(1) Leg swelling Status: Chronic Current Visit: Yes Code(s): M79.89 - Other specified soft tissue disorders (2) Edema of both legs Status: Chronic Current Visit: Yes Code(s): R60.0 - Localized edema (3) Venous hypertension, chronic, with ulcer Status: Chronic Current Visit: Yes Code(s): I87.319 - Chronic venous hypertension (idiopathic) with ulcer of unspecified lower extremity; L97.909 - Non-pressure chronic ulcer of unspecified part of unspecified lower leg with unspecified severity (4) Venous stasis ulcer Status: Chronic Current Visit: Yes Qualifiers: Venous stasis ulcer site: calf Laterality: right Code(s): I83.009 - Varicose veins of unspecified lower extremity with ulcer of unspecified site; L97.909 - Non-pressure chronic ulcer of unspecified part of unspecified lower leg with unspecified severity (5) Lymphedema Status: Chronic Current Visit: Yes Code(s): I89.0 - Lymphedema, not elsewhere classified (6) Obesity (BMI 30.0-34.9) Status: Chronic Current Visit: Yes Code(s): E66.9 - Obesity, unspecified (7) CAD (coronary artery disease) Status: Chronic Current Visit: No Code(s): I25.10 - Atherosclerotic heart disease of [place] coronary artery without angina pectoris (8) Diabetes mellitus Status: Chronic Current Visit: Yes Qualifiers: Diabetes mellitus type: type 2 Code(s): E11.9 - Type 2 diabetes mellitus without complications (9) Hypertension Status: Chronic Current Visit: No Code(s): I10 - Essential (primary) hypertension (10) History of [place] (myocardial infarction) Status: Chronic Current Visit: No Code(s): I25.2 - Old myocardial infarction (11) Hypothyroidism Status: Chronic Current Visit: No Code(s): E03.9 - Hypothyroidism, unspecified (12) Renal failure Status: Chronic Current Visit: No Code(s): N19 - Unspecified kidney failure (13) Hyperlipidemia Status: Chronic Current Visit: No Code(s): E78.5 - Hyperlipidemia, unspecified (14) Debility Status: Chronic Current Visit: Yes Code(s): R53.81 - Other malaise (15) Dependent edema Status: Chronic Current Visit: Yes Code(s): R60.9 - Edema, unspecified History of Present Illness Date of Service: 12/11/19 Chief Complaint: Severe swelling, edema, and lymphedema in the lower extremities bilaterally, with ulceration of the right anterior tibial surface History of Wound: This is a 79-year-old female who presented with severe swelling, edema, and lymphedema in the lower extremities bilaterally. In addition, she has an ulceration on the right anterior tibial surface, said to have been present for approximately 6 weeks. It initially occurred approximately 6 weeks prior to admission, having developed spontaneously. Initially, according to the patient, the area became blistered, and subsequently opened to form an ulceration. Patient is not active. She spends long hours each day sitting idlely. She sleeps in a chair. When ambulatory, she requires the use of a cane or walker. She is obese. Past Medical History Past Medical History: Chronic Problems Leg swelling (Chronic) Edema of both legs (Chronic) Venous hypertension, chronic, with ulcer (Chronic) Venous stasis ulcer (Chronic) Lymphedema (Chronic) Obesity (BMI 30.0-34.9) (Chronic) CAD (coronary artery disease) (Chronic) Diabetes mellitus (Chronic) Hypertension (Chronic) History of PA (myocardial infarction) (Chronic) Hypothyroidism (Chronic) Renal failure (Chronic) Hyperlipidemia (Chronic) Debility (Chronic) Dependent edema (Chronic) Surgical History: - - Patient is undergone partial hysterectomy in the past. She is also undergone cholecystectomy. Coronary revascularization was performed approximately 6 years ago. The patient is a G3, P3 Ab0. Allergies/Adverse Reactions: Allergies indomethacin [From Indocin] Allergy (Verified 08/21/19 11:29) Vomiting Home Medications: Ambulatory Orders Medication Instructions Recorded Aspirin [Aspir 81] 81 mg PO DAILY 08/21/19 Atorvastatin Calcium 80 mg PO DAILY 08/21/19 Chlorthalidone 50 mg PO DAILY 08/21/19 Cholecalciferol (Vitamin D3) 2,000 unit PO DAILY 08/21/19 [Vitamin D3] Digoxin [Digitek] 125 mcg PO DAILY 08/21/19 Glimepiride [Amaryl] 2 mg PO DAILY 08/21/19 Hydralazine HCl 100 mg PO TID 08/21/19 Isosorbide Mononitrate [Isosorbide 30 mg PO DAILY 08/21/19 Mononitrate ER] Levothyroxine Sodium 125 mcg PO DAILY 08/21/19 Lisinopril 20 mg PO DAILY 08/21/19 Metoprolol Tartrate 50 mg PO BID 08/21/19 - Family History Paternal - - Patient's father at the age of 56 with a history of myocardial infarction. The patient's mother at the age of 56 with history of breast cancer. Smoking Status: Never smoker Tobacco Use: Non-smoker Review of Systems Constitutional: Denies: Chills, Fever, Weight Change Eyes: Denies: Pain, Vision Change HEENT: Denies: Difficulty Hearing, Difficulty Swallowing, Sinus Congestion Cardiovascular: Denies: Chest Pain, Palpitations Respiratory: Denies: Cough, Shortness of Breath Gastrointestinal: Denies: Diarrhea, Nausea, Vomiting Genitourinary: Denies: Dysuria, Hematuria Endocrine: Denies: Heat/ Cold Intolerance, Polydipsia, Polyuria Hematologic/ Lymphatic: Denies: Easy Bruising, Easy Bleeding - Physical Exam Vital Signs Temp Pulse Resp BP 97.8 F 56 L 16 199/87 H 12/11/19 10:58 12/11/19 10:58 12/11/19 10:58 12/11/19 10:58 General: Alert, Oriented x3, Cooperative, No apparent distress, Well developed, Well nourished HEENT: Atraumatic, PERRLA, EOMI, Normocephalic Oral: Moist Mucosa Neck: No JVD Lungs: Normal air movement Abdomen: Non-Distended Extremities: No clubbing, No cyanosis, No Calf Tenderness, - - Swelling and edema persist in the patient's lower extremities. A large superficial ulceration persists on the right anterior tibial surface. Dimensions are documented elsewhere. There is no sign of infection or cellulitis. Wound Measurements and Assessment WC - Nurse 1 - General Ulcer Measurement Start: 11/30/19 10:30 Freq: Status: Active Protocol: Activity Type Activity Date Activity User E-Sign Co-Sign Detail Recorded Client Recorded Date Recorded By Document 12/11/19 10:58 [facility] [id number] 12/11/19 11:04 [facility] 12/11/19 10:58 Wound Center Nurse 1 [Ulcer Assessment] 1-right sinclair -Combined with other wound No -Current Size (cm) - Length 4.5 -Current Size (cm) - Width 2 -Current Size (cm) - Depth 0.1 -Total Square Cm 9.0 -Photo Taken No -Epithelialization Medium 34-66% -Tunneling No -Undermining/Tunneling No -Circular Undermining No -Exudate Amt Small -Exudate Type Serosanguineous -Wound Margin Flat & Intact -Granulation Amt Large (67-100%) -Granulation Quality Red -Slough/Fibrin No -Necrosis Amt None Present (0 %) -Texture (Ileana-wound Skin Appearance) Assessed, Excoriation, Scarring,Rash -Moisture (Ileana-wound Skin Appearance Assessed,Dry/ ) Scaly -Color (Ileana-wound Skin Appearance) Assessed, Erythema -Temperature (Ileana-wound Skin No Abnormality Appearance) (Pt Warm) -Tenderness on Palpation (Ileana-wound Yes Skin Appearance) -Ulcer Cleansing soap and water -Foul Odor after Cleansing No -Anesthetic Used 4% Lidocaine Solution [Edema Assessment] -Lower Limb Edema Present Yes -Right Calf (cm) 43.3 -Right Ankle (cm) 29.2 WC - Nurse 2 - General Ulcer CM Notes Start: 11/30/19 10:30 Freq: Status: Active Protocol: Activity Type Activity Date Activity User E-Sign Co-Sign Detail Recorded Client Recorded Date Recorded By Document 12/11/19 11:24 DV [id number] 12/11/19 11:26 DV 12/11/19 11:24 Wound Center Nurse 2 [Procedure/Treatment] 1-right sinclair -Time 11:25 -Correct Patient Yes -Correct Side, Site, Position Yes -Correct Procedure No -Procedure Performed No -Wound/Ulcer Outcome Not Healed [See Physician Procedure note for Specifics] Pain Scale: 0-10 Numeric [Pain] -Is Patient Pain Free? Yes Musculoskeletal: No Muscle Wasting Neurological: Cranial nerves II-XII grossly intact, Neuro grossly intact Psych/Mental Status: Normal Affect, Appropriate, Alert and oriented to time, place, person, mood and affect Debridement Note Post-Debridement Measurements/Treatment - Nurse 2 - General Ulcer CM Notes Start: 11/30/19 10:30 Freq: Status: Active Protocol: Activity Type Activity Date Activity User E-Sign Co-Sign Detail Recorded Client Recorded Date Recorded By Document 12/04/19 11:24 DV [id number] 12/04/19 11:25 DV Document 12/11/19 11:24 DV [id number] 12/11/19 11:26 DV 12/04/19 12/11/19 11:24 11:24 Wound Center Nurse 2 1-right sinclair -Time 11:25 11:25 -Correct Patient Yes Yes -Correct Side, Site, Position Yes Yes -Correct Procedure No No -Procedure Performed No No -Wound/Ulcer Outcome Not Healed Not Healed -Ulcer Cleansing Rinsed/ Irrigated with Saline -Foul Odor after Cleansing No -Bioengineered Tissue No Pain Scale: 0-10 Numeric Is Patient Pain Free? Yes Yes No debridement was completed today - The ulceration appears to be that of excoriation, not extending deep into the subcutaneous tissues. Assessment/Plan Active Problems Leg swelling (Chronic) Edema of both legs (Chronic) Venous hypertension, chronic, with ulcer (Chronic) Venous stasis ulcer (Chronic) Lymphedema (Chronic) Obesity (BMI 30.0-34.9) (Chronic) Diabetes mellitus (Chronic) Debility (Chronic) Dependent edema (Chronic) Assessment: This is a 79-year-old obese female with multiple pre-existing medical conditions. These include, but are not limited to, diabetes mellitus, coronary artery disease, hyperlipidemia, hypertension, hypothyroidism, renal insufficiency, etc. She has significant swelling, edema, and lymphedema in the lower extremities bilaterally, with an associated open ulceration on the right anterior tibial surface. Her presenting symptoms and manifestations appear to be related to lifestyle factors. She is sedentary, and sits for long periods each day. Furthermore, the patient sleeps in an upright position. She is obese, and not active. It appears as though these lifestyle factors have resulted in significant swelling, edema, and lymphedema in the patient's lower extremities, which have more recently resulted in the development of an ulceration on the right anterior tibial surface. The patient has demonstrated mild improvement in recent weeks, with the implementation of conservative treatment measures. However, questions as to the patient's compliance with recommended measures persist. Plan: The patient has been advised to elevate her lower extremities as much as possible. The means by which this is to be accomplished has been discussed in detail with the patient and with her daughter, who was at the bedside. The patient's legs are to be elevated to heart level, or higher. This is to be accomplished as much as possible, even during daytime hours. The patient has been advised to sleep on a flat mattress at night. Activity has been encouraged, though the patient is somewhat limited by her physical status. She has been urged to refrain from prolonged, idle standing and sitting. Weight loss has been recommended. We are to continue the use of an Unna boot with compression to the right lower extremity, which will be changed twice weekly. The patient will return to our facility for that purpose. She has now obtained 1 CircAid Velcro compression garment, which will be applied daily to the left lower extremity. She also has obtained mechanical pneumatic compression pumps, which are to be used 3 times daily. Despite the aforementioned recommendations, the patient appears to be somewhat noncompliant, admitting to a lack of lower extremity elevation, etc. The patient underwent laboratory testing, performed at [facility], the results of which are as follows: White blood count 8.6, hemoglobin 9.4, hematocrit 28.2, platelets 248,000, sodium 142, potassium 5.1, chloride 110, glucose 120, BUN 47, creatinine 2, calcium 9.5, total protein 6.4, hemoglobin A1c 6.4. A noninvasive lower extremity arterial study was ordered, but was not performed as scheduled due to insurance issues. However, the patient has been tolerating compression wraps thus far, without any adverse consequences. Patient has been advised to optimize her nutritional intake. Optimization of the patient's glycemic control has also been recommended. Questions remain as to the patient's compliance with recommended measures. The patient will return in 1 week for reassessment. Influenza vaccine was not administered today. Patient is not a smoker. The patient is 5 feet 3 inches tall. She weighs 180 pounds. Her BMI is 31.8, which places her in a class I obesity category. Weight loss has been recommended, in collaboration with her primary care physician in this regard has been advised.
[2019-12-14 11:26] VITALS: BP 149/51; PULSE 61; RESP 18; TEMP 36.3; BMI 31.8
[2019-12-18 10:16] VITALS: BP 216/68; PULSE 62; RESP 16; TEMP 36.2; BMI 31.8
--- NOTE | 2019-12-18 11:19 | HP.PCM_ITS ---
(1) Leg swelling Status: Chronic Current Visit: Yes Code(s): M79.89 - Other specified soft tissue disorders (2) Edema of both legs Status: Chronic Current Visit: Yes Code(s): R60.0 - Localized edema (3) Venous hypertension, chronic, with ulcer Status: Chronic Current Visit: Yes Code(s): I87.319 - Chronic venous hypertension (idiopathic) with ulcer of unspecified lower extremity; L97.909 - Non-pressure chronic ulcer of unspecified part of unspecified lower leg with unspecified severity (4) Venous stasis ulcer Status: Chronic Current Visit: Yes Qualifiers: Venous stasis ulcer site: calf Laterality: right Code(s): I83.009 - Varicose veins of unspecified lower extremity with ulcer of unspecified site; L97.909 - Non-pressure chronic ulcer of unspecified part of unspecified lower leg with unspecified severity (5) Lymphedema Status: Chronic Current Visit: Yes Code(s): I89.0 - Lymphedema, not elsewhere classified (6) Obesity (BMI 30.0-34.9) Status: Chronic Current Visit: Yes Code(s): E66.9 - Obesity, unspecified (7) CAD (coronary artery disease) Status: Chronic Current Visit: No Code(s): I25.10 - Atherosclerotic heart disease of [place] coronary artery without angina pectoris (8) Diabetes mellitus Status: Chronic Current Visit: Yes Qualifiers: Diabetes mellitus type: type 2 Code(s): E11.9 - Type 2 diabetes mellitus without complications (9) Hypertension Status: Chronic Current Visit: No Code(s): I10 - Essential (primary) hy pertension (10) History of MD (myocardial infarction) Status: Chronic Current Visit: No Code(s): I25.2 - Old myocardial infarction (11) Hypothyroidism Status: Chronic Current Visit: No Code(s): E03.9 - Hypothyroidism, unspecified (12) Renal failure Status: Chronic Current Visit: No Code(s): N19 - Unspecified kidney failure (13) Hyperlipidemia Status: Chronic Current Visit: No Code(s): E78.5 - Hyperlipidemia, unsp ecified (14) Debility Status: Chronic Current Visit: Yes Code(s): R53.81 - Other malaise (15) Dependent edema Status: Chronic Current Visit: Yes Code(s): R60.9 - Edema, unspecified History of Present Illness Date of Service: 12/18/19 Chief Complaint: Severe swelling, edema, and lymphedema in the lower extremities bilaterally, with ulceration of the right anterior tibial surface History of Wound: This is a 79-year-old female who presented with severe swelling, edema, and lymphedema in the lower extremities bilaterally. In addition, she has an ulceration on the right anterior tibial surface, said to have been present for approximately 6 weeks. It initially occurred approximately 6 weeks prior to admission, having developed spontaneously. Initially, according to the patient, the area became blistered, and subsequently opened to form an ulceration. Patient is not active. She spends long hours each day sitting idlely. She sleeps in a chair. When ambulatory, she requires the use of a cane or walker. She is obese. Past Medical History Past Medical History: Chronic Problems Leg swelling (Chronic) Edema of both legs (Chronic) Venous hypertension, chronic, with ulcer (Chronic) Venous stasis ulcer (Chronic) Lymphedema (Chronic) Obesity (BMI 30.0-34.9) (Chronic) CAD (coronary artery disease) (Chronic) Diabetes mellitus (Chronic) Hypertension (Chronic) History of MD (myocardial infarction) (Chronic) Hypothyroidism (Chronic) Renal failure (Chronic) Hyperlipidemia (Chronic) Debility (Chronic) Dependent edema (Chronic) Surgical History: - - Patient is undergone partial hysterectomy in the past. She is also undergone cholecystectomy. Coronary revascularization was performed approximately 6 years ago. The patient is a G3, P3 Ab0. Allergies/Adverse Reactions: Allergies indomethacin [From Indocin] Allergy (Verified 08/21/19 11:29) Vomiting Home Medications: Ambulatory Orders Medication Instructions Recorded Aspirin [Aspir 81] 81 mg PO DAILY 08/21/19 Atorvastatin Calcium 80 mg PO DAILY 08/21/19 Chlorthalidone 50 mg PO DAILY 08/21/19 Cholecalciferol (Vitamin D3) 2,000 unit PO DAILY 08/21/19 [Vitamin D3] Digoxin [Digitek] 125 mcg PO DAILY 08/21/19 Glimepiride [Amaryl] 2 mg PO DAILY 08/21/19 Hydralazine HCl 100 mg PO TID 08/21/19 Isosorbide Mononitrate [Isosorbide 30 mg PO DAILY 08/21/19 Mononitrate ER] Levothyroxine Sodium 125 mcg PO DAILY 08/21/19 Lisinopril 20 mg PO DAILY 08/21/19 Metoprolol Tartrate 50 mg PO BID 08/21/19 - Family History Paternal - - Patient's father at the age of 56 with a history of myocardial infarction. The patient's mother at the age of 56 with history of breast cancer. Smoking Status: Never smoker Tobacco Use: Non-smoker Review of Systems Constitutional: Denies: Chills, Fever, Weight Change Eyes: Denies: Pain, Vision Change HEENT: Denies: Difficulty Hearing, Difficulty Swallowing, Sinus Congestion Cardiovascular: Denies: Chest Pain, Palpitations Respiratory: Denies: Cough, Shortness of Breath Gastrointestinal: Denies: Diarrhea, Nausea, Vomiting Genitourinary: Denies: Dysuria, Hematuria Endocrine: Denies: Heat/ Cold Intolerance, Polydipsia, Polyuria Hematologic/ Lymphatic: Denies: Easy Bruising, Easy Bleeding - Physical Exam Vital Signs Temp Pulse Resp BP 97.2 F L 62 16 216/68 H 12/18/19 10:16 12/18/19 10:16 12/18/19 10:16 12/18/19 10:16 General: Alert, Oriented x3, Cooperative, No apparent distress, Well developed, Well nourished HEENT: Atraumatic, PERRLA, EOMI, Normocephalic Oral: Moist Mucosa Neck: No JVD Lungs: Normal air movement Abdomen: Non-Distended Extremities: No clubbing, No cyanosis, No Calf Tenderness, - - Moderate to severe swelling and edema persist in the lower extremities bilaterally. This is chronic in nature. The venous stasis ulceration on the right anterior tibial surface remains, but is smaller in size. There have been increasing areas of epithelialization and healing. There has been significant improvement. There is no sign of infection or cellulitis. Ulcer dimensions are documented elsewhere. Wound Measurements and Assessment WC - Nurse 1 - General Ulcer Measurement Start: 11/30/19 10:30 Freq: Status: Active Protocol: Activity Type Activity Date Activity User E-Sign Co-Sign Detail Recorded Client Recorded Date Recorded By Document 12/18/19 10:16 [facility] [id number] 12/18/19 10:30 [facility] 12/18/19 10:16 Wound Center Nurse 1 [Ulcer Assessment] 1-right sinclair -Combined with other wound No -Current Size (cm) - Length 4.5 -Current Size (cm) - Width 2.3 -Current Size (cm) - Depth 0.1 -Total Square Cm 10.35 -Photo Taken No -Epithelialization Medium 34-66% -Tunneling No -Undermining/Tunneling No -Circular Undermining No -Exudate Amt Small -Exudate Type Sanguineous -Wound Margin Flat & Intact -Granulation Amt Large (67-100%) -Granulation Quality [place] -Slough/Fibrin No -Necrosis Amt None Present (0 %) -Texture (Ileana-wound Skin Appearance) Assessed, Excoriation -Moisture (Ileana-wound Skin Appearance Assessed,Dry/ ) Scaly -Color (Ileana-wound Skin Appearance) Assessed, Erythema -Temperature (Ileana-wound Skin No Abnormality Appearance) (Pt Warm) -Tenderness on Palpation (Ileana-wound No Skin Appearance) -Ulcer Cleansing soapy water -Foul Odor after Cleansing No -Anesthetic Used 4% Lidocaine Solution [Edema Assessment] -Lower Limb Edema Present Yes -Right Calf (cm) 38.3 -Right Ankle (cm) 28.7 WC - Nurse 2 - General Ulcer CM Notes Start: 11/30/19 10:30 Freq: Status: Active Protocol: Activity Type Activity Date Activity User E-Sign Co-Sign Detail Recorded Client Recorded Date Recorded By Document 12/18/19 11:15 DV [id number] 12/18/19 11:17 DV 12/18/19 11:15 Wound Center Nurse 2 [Procedure/Treatment] 1-right sinclair -Time 11:16 -Correct Patient Yes -Correct Side, Site, Position Yes -Correct Procedure No -Procedure Performed No -Wound/Ulcer Outcome Not Healed [See Physician Procedure note for Specifics] Pain Scale: 0-10 Numeric [Pain] -Is Patient Pain Free? Yes Musculoskeletal: No Muscle Wasting Neurological: Cranial nerves II-XII grossly intact, Neuro grossly intact Psych/Mental Status: Normal Affect, Appropriate, Alert and oriented to time, place, person, mood and affect Debridement Note Post-Debridement Measurements/Treatment - Nurse 2 - General Ulcer CM Notes Start: 11/30/19 10:30 Freq: Status: Active Protocol: Activity Type Activity Date Activity User E-Sign Co-Sign Detail Recorded Client Recorded Date Recorded By Document 12/04/19 11:24 DV [id number] 01/07/20 11:25 DV Document 12/11/19 11:24 DV [id number] 12/11/19 11:26 DV Document 12/18/19 11:15 DV [id number] 12/18/19 11:17 DV 12/04/19 12/11/19 12/18/19 11:24 11:24 11:15 Wound Center Nurse 2 1-right sinclair -Time 11:25 11:25 11:16 -Correct Patient Yes Yes Yes -Correct Side, Site, Position Yes Yes Yes -Correct Procedure No No No -Procedure Performed No No No -Wound/Ulcer Outcome Not Healed Not Healed Not Healed -Ulcer Cleansing Rinsed/ Irrigated with Saline -Foul Odor after Cleansing No -Bioengineered Tissue No Pain Scale: 0-10 Numeric Is Patient Pain Free? Yes Yes Yes No debridement was completed today Assessment/Plan Active Problems Leg swelling (Chronic) Edema of both legs (Chronic) Venous hypertension, chronic, with ulcer (Chronic) Venous stasis ulcer (Chronic) Lymphedema (Chronic) Obesity (BMI 30.0-34.9) (Chronic) Diabetes mellitus (Chronic) Debility (Chronic) Dependent edema (Chronic) Assessment: This is a 79-year-old obese female with multiple pre-existing medical conditions. These include, but are not limited to, diabetes mellitus, coronary artery disease, hyperlipidemia, hypertension, hypothyroidism, renal insufficiency, etc. She has significant swelling, edema, and lymphedema in the lower extremities bilaterally, with an associated open ulceration on the right anterior tibial surface. Her presenting symptoms and manifestations appear to be related to lifestyle factors. She is sedentary, and sits for long periods each day. Furthermore, the patient sleeps in an upright position. She is obese, and not active. It appears as though these lifestyle factors have resulted in significant swelling, edema, and lymphedema in the patient's lower extremities, which have more recently resulted in the development of an ulceration on the right anterior tibial surface. The patient has demonstrated mild improvement in recent weeks, with the implementation of conservative treatment measures. Plan: The patient has been advised to elevate her lower extremities as much as possible. The means by which this is to be accomplished has been discussed in detail with the patient and with her daughter, who was at the bedside. The patient's legs are to be elevated to heart level, or higher. This is to be accomplished as much as possible, even during daytime hours. The patient has been advised to sleep on a flat mattress at night. Activity has been encouraged, though the patient is somewhat limited by her physical status. She has been urged to refrain from prolonged, idle standing and sitting. Weight loss has been recommended. We are to continue the use of an [place] boot with compression to the right lower extremity, which will be changed twice weekly. The patient will return to our facility for that purpose. She has now obtained one CircAid Velcro compression garment, which will be applied daily to the left lower extremity. She also has obtained mechanical pneumatic compression pumps, which are to be used 3 times daily. The patient underwent laboratory testing, performed at [facility], the results of which are as follows: White blood count 8.6, hemoglobin 9.4, hematocrit 28.2, platelets 248,000, sodium 142, potassium 5.1, chloride 110, glucose 120, BUN 47, creatinine 2, calcium 9.5, total protein 6.4, hemoglobin A1c 6.4. A noninvasive lower extremity arterial study was ordered, but was not performed as scheduled due to insurance issues. However, the patient has been tolerating compression wraps thus far, without any adverse consequences. Patient has been advised to optimize her nutritional intake. Optimization of the patient's glycemic control has also been recommended. Questions remain as to the patient's compliance with recommended measures. The patient will return in 1 week for reassessment. The patient's blood pressure was noted to be elevated at her visit today, which has been brought to her attention. Collaboration with her primary care physician has been recommended. Influenza vaccine was not administered today. Patient is not a smoker. The patient is 5 feet 3 inches tall. She weighs 180 pounds. Her BMI is 31.8, which places her in a class I obesity category. Weight loss has been recommended, in collaboration with her primary care physician in this regard has been advised.
[2019-12-21 09:49] VITALS: BP 174/61; PULSE 55; RESP 18; TEMP 36.2; BMI 31.8
[2019-12-25 10:45] VITALS: BP 189/78; PULSE 57; RESP 20; TEMP 36.2; BMI 31.8
--- NOTE | 2019-12-25 11:23 | PCM.WC.HP ---
(1) Leg swelling Status: Chronic Current Visit: Yes Code(s): M79.89 - Other specified soft tissue disorders (2) Edema of both legs Status: Chronic Current Visit: Yes Code(s): R60.0 - Localized edema (3) Venous hypertension, chronic, with ulcer Status: Chronic Current Visit: Yes Code(s): I87.319 - Chronic venous hypertension (idiopathic) with ulcer of unspecified lower extremity; L97.909 - Non-pressure chronic ulcer of unspecified part of unspecified lower leg with unspecified severity (4) Venous stasis ulcer Status: Chronic Current Visit: Yes Qualifiers: Venous stasis ulcer site: calf Laterality: right Code(s): I83.009 - Varicose veins of unspecified lower extremity with ulcer of unspecified site; L97.909 - Non-pressure chronic ulcer of unspecified part of unspecified lower leg with unspecified severity (5) Lymphedema Status: Chronic Current Visit: Yes Code(s): I89.0 - Lymphedema, not elsewhere classified (6) Obesity (BMI 30.0-34.9) Status: Chronic Current Visit: Yes Code(s): E66.9 - Obesity, unspecified (7) CAD (coronary artery disease) Status: Chronic Current Visit: No Code(s): I25.10 - Atherosclerotic heart disease of [place] coronary artery without angina pectoris (8) Diabetes mellitus Status: Chronic Current Visit: Yes Qualifiers: Diabetes mellitus type: type 2 Code(s): E11.9 - Type 2 diabetes mellitus without complications (9) Hypertension Status: Chronic Current Visit: No Code(s): I10 - Essential (primary) hypertension (10) History of [place] (myocardial infarction) Status: Chronic Current Visit: No Code(s): I25.2 - Old myocardial infarction (11) Hypothyroidism Status: Chronic Current Visit: No Code(s): E03.9 - Hypothyroidism, unspecified (12) Renal failure Status: Chronic Current Visit: No Code(s): N19 - Unspecified kidney failure (13) Hyperlipidemia Status: Chronic Current Visit: No Code(s): E78.5 - Hyperlipidemia, unspecified (14) Debility Status: Chronic Current Visit: Yes Code(s): R53.81 - Other malaise (15) Dependent edema Status: Chronic Current Visit: Yes Code(s): R60.9 - Edema, unspecified History of Present Illness Date of Service: 12/25/19 Chief Complaint: Severe swelling, edema, and lymphedema in the lower extremities bilaterally, with ulceration of the right anterior tibial surface History of Wound: This is a 79-year-old female who presented with severe swelling, edema, and lymphedema in the lower extremities bilaterally. In addition, she has an ulceration on the right anterior tibial surface, said to have been present for approximately 6 weeks. It initially occurred approximately 6 weeks prior to admission, having developed spontaneously. Initially, according to the patient, the area became blistered, and subsequently opened to form an ulceration. Patient is not active. She spends long hours each day sitting idlely. She sleeps in a chair. When ambulatory, she requires the use of a cane or walker. She is obese. Past Medical History Past Medical History: Chronic Problems Leg swelling (Chronic) Edema of both legs (Chronic) Venous hypertension, chronic, with ulcer (Chronic) Venous stasis ulcer (Chronic) Lymphedema (Chronic) Obesity (BMI 30.0-34.9) (Chronic) CAD (coronary artery disease) (Chronic) Diabetes mellitus (Chronic) Hypertension (Chronic) History of [place] (myocardial infarction) (Chronic) Hypothyroidism (Chronic) Renal failure (Chronic) Hyperlipidemia (Chronic) Debility (Chronic) Dependent edema (Chronic) Surgical History: - - Patient is undergone partial hysterectomy in the past. She is also undergone cholecystectomy. Coronary revascularization was performed approximately 6 years ago. The patient is a G3, P3 Ab0. Allergies/Adverse Reactions: Allergies indomethacin [From Indocin] Allergy (Verified 08/21/19 11:29) Vomiting Home Medications: Ambulatory Orders Medication Instructions Recorded Aspirin [Aspir 81] 81 mg PO DAILY 08/21/19 Atorvastatin Calcium 80 mg PO DAILY 08/21/19 Chlorthalidone 50 mg PO DAILY 08/21/19 Cholecalciferol (Vitamin D3) 2,000 unit PO DAILY 08/21/19 [Vitamin D3] Digoxin [Digitek] 125 mcg PO DAILY 08/21/19 Glimepiride [Amaryl] 2 mg PO DAILY 08/21/19 Hydralazine HCl 100 mg PO TID 08/21/19 Isosorbide Mononitrate [Isosorbide 30 mg PO DAILY 08/21/19 Mononitrate ER] Levothyroxine Sodium 125 mcg PO DAILY 08/21/19 Lisinopril 20 mg PO DAILY 08/21/19 Metoprolol Tartrate 50 mg PO BID 08/21/19 - Family History Paternal - - Patient's father at the age of 56 with a history of myocardial infarction. The patient's mother at the age of 56 with history of breast cancer. Smoking Status: Never smoker Tobacco Use: Non-smoker Review of Systems Constitutional: Denies: Chills, Fever, Weight Change Eyes: Denies: Pain, Vision Change HEENT: Denies: Difficulty Hearing, Difficulty Swallowing, Sinus Congestion Cardiovascular: Denies: Chest Pain, Palpitations Respiratory: Denies: Cough, Shortness of Breath Gastrointestinal: Denies: Diarrhea, Nausea, Vomiting Genitourinary: Denies: Dysuria, Hematuria Endocrine: Denies: Heat/ Cold Intolerance, Polydipsia, Polyuria Hematologic/ Lymphatic: Denies: Easy Bruising, Easy Bleeding - Physical Exam Vital Signs Temp Pulse Resp BP 97.2 F L 57 L 20 H 189/78 H 12/25/19 10:45 12/25/19 10:45 12/25/19 10:45 12/25/19 10:45 General: Alert, Oriented x3, Cooperative, No apparent distress, Well developed, Well nourished HEENT: Atraumatic, PERRLA, EOMI, Normocephalic Oral: Moist Mucosa Neck: No JVD Lungs: Normal air movement Abdomen: Non-Distended Extremities: No clubbing, No cyanosis, No Calf Tenderness, - - Significant swelling, edema, and lymphedema persist in the patient's right lower extremity. Left lower extremity was not examined, as a CircAid compression garment remains in place. There is evidence of epithelialization of the ulceration on the right anterior tibial surface. However, there are areas remaining which are yet to heal. Dimensions are documented elsewhere. Those areas at the heel are quite superficial in nature. There is no sign of infection or cellulitis. Wound Measurements and Assessment WC - Nurse 1 - General Ulcer Measurement Start: 11/30/19 10:30 Freq: Status: Active Protocol: Activity Type Activity Date Activity User E-Sign Co-Sign Detail Recorded Client Recorded Date Recorded By Document 12/25/19 10:45 DL [id number] 12/25/19 10:57 DL 12/25/19 10:45 Wound Center Nurse 1 [Ulcer Assessment] 1-right sinclair -Current Size (cm) - Length 3.2 -Current Size (cm) - Width 1.6 -Current Size (cm) - Depth 0.1 -Total Square Cm 5.12 -Photo Taken No -Exudate Amt Small -Exudate Type Serosanguineous -Wound Margin Indistinct, Non -Visible -Granulation Amt Large (67-100%) -Granulation Quality [place] -Necrosis Amt None Present (0 %) -Structure Exposed N/A -Texture (Ileana-wound Skin Appearance) Scarring -Moisture (Ileana-wound Skin Appearance Dry/Scaly ) -Color (Ileana-wound Skin Appearance) Hemosiderin Staining,Rubor -Temperature (Ileana-wound Skin No Abnormality Appearance) (Pt Warm) -Tenderness on Palpation (Ileana-wound No Skin Appearance) -Anesthetic Used 4% Lidocaine Solution [Edema Assessment] -Right Calf (cm) 36.5 -Right Ankle (cm) 28 Neurological: Cranial nerves II-XII grossly intact, Neuro grossly intact Psych/Mental Status: Normal Affect, Appropriate, Alert and oriented to time, place, person, mood and affect Debridement Note Post-Debridement Measurements/Treatment WC - Nurse 2 - General Ulcer CM Notes Start: 11/30/19 10:30 Freq: Status: Active Protocol: Activity Type Activity Date Activity User E-Sign Co-Sign Detail Recorded Client Recorded Date Recorded By Document 12/04/19 11:24 DV [id number] 12/04/19 11:25 DV Document 12/11/19 11:24 DV [id number] 12/11/19 11:26 DV Document 12/18/19 11:15 DV [id number] 12/18/19 11:17 DV 12/04/19 12/11/19 12/18/19 11:24 11:24 11:15 Wound Center Nurse 2 1-right sinclair -Time 11:25 11:25 11:16 -Correct Patient Yes Yes Yes -Correct Side, Site, Position Yes Yes Yes -Correct Procedure No No No -Procedure Performed No No No -Wound/Ulcer Outcome Not Healed Not Healed Not Healed -Ulcer Cleansing Rinsed/ Irrigated with Saline -Foul Odor after Cleansing No -Bioengineered Tissue No Pain Scale: 0-10 Numeric Is Patient Pain Free? Yes Yes Yes No debridement was completed today Assessment/Plan Active Problems Leg swelling (Chronic) Edema of both legs (Chronic) Venous hypertension, chronic, with ulcer (Chronic) Venous stasis ulcer (Chronic) Lymphedema (Chronic) Obesity (BMI 30.0-34.9) (Chronic) Diabetes mellitus (Chronic) Debility (Chronic) Dependent edema (Chronic) Assessment: This is a 79-year-old obese female with multiple pre-existing medical conditions. These include, but are not limited to, diabetes mellitus, coronary artery disease, hyperlipidemia, hypertension, hypothyroidism, renal insufficiency, etc. She has significant swelling, edema, and lymphedema in the lower extremities bilaterally, with an associated open ulceration on the right anterior tibial surface. Her presenting symptoms and manifestations appear to be related to lifestyle factors. She is sedentary, and sits for long periods each day. Furthermore, the patient sleeps in an upright position. She is obese, and not active. It appears as though these lifestyle factors have resulted in significant swelling, edema, and lymphedema in the patient's lower extremities, which have more recently resulted in the development of an ulceration on the right anterior tibial surface. The patient has demonstrated mild improvement in recent weeks, with the implementation of conservative treatment measures. Plan: The patient has been advised to elevate her lower extremities as much as possible. The means by which this is to be accomplished has been discussed in detail with the patient and with her daughter, who was at the bedside. The patient's legs are to be elevated to heart level, or higher. This is to be accomplished as much as possible, even during daytime hours. The patient has been advised to sleep on a flat mattress at night. Activity has been encouraged, though the patient is somewhat limited by her physical status. She has been urged to refrain from prolonged, idle standing and sitting. Weight loss has been recommended. We are to continue the use of an Unna boot with compression to the right lower extremity, which will be changed twice weekly. We are to implement the use of Adaptic overlying the patient's ulceration, prior to the placement of the Unna boot. This is to be employed due to concerns that the Unna boot, upon removal, is removing some of the recently formed epithelium, which remains adherent to the Unna boot gauze. The patient will return to our facility twice weekly for reapplication of her Unna boot. She has now obtained one CircAid Velcro compression garment, which will be applied daily to the left lower extremity. She also has obtained mechanical pneumatic compression pumps, which are to be used 3 times daily. The patient underwent laboratory testing, performed at [facility], the results of which are as follows: White blood count 8.6, hemoglobin 9.4, hematocrit 28.2, platelets 248,000, sodium 142, potassium 5.1, chloride 110, glucose 120, BUN 47, creatinine 2, calcium 9.5, total protein 6.4, hemoglobin A1c 6.4. A noninvasive lower extremity arterial study was ordered, but was not performed as scheduled due to insurance issues. However, the patient has been tolerating compression wraps thus far, without any adverse consequences. Patient has been advised to optimize her nutritional intake. Optimization of the patient's glycemic control has also been recommended. Questions remain as to the patient's compliance with recommended measures. The patient will return in 1 week for reassessment. Influenza vaccine was not administered today. Patient is not a smoker. The patient is 5 feet 3 inches tall. She weighs 180 pounds. Her BMI is 31.8, which places her in a class I obesity category. Weight loss has been recommended, in collaboration with her primary care physician in this regard has been advised.
[2019-12-28 14:46] VITALS: BP 184/67; PULSE 66; RESP 18; TEMP 36.4; BMI 31.8
== END 2019-12-28 23:59 ==
LOC: WC 14:15
PROVIDERS: Family Provider Family Medicine; PCP Family Medicine; Visit Provider Surgery
DX: I83.018 Varicose veins of right lower extremity with ulcer other part of lower leg (principal); L97.812 Non-pressure chronic ulcer of other part of right lower leg with fat layer exposed; M79.89 Other specified soft tissue disorders; R60.0 Localized edema; I89.0 Lymphedema, not elsewhere classified; I25.10 Atherosclerotic heart disease of native coronary artery without angina pectoris; E66.9 Obesity, unspecified; I25.2 Old myocardial infarction; I12.9 Hypertensive chronic kidney disease with stage 1 through stage 4 chronic kidney disease, or unspecified chronic kidney disease; E11.22 Type 2 diabetes mellitus with diabetic chronic kidney disease; N18.9 Chronic kidney disease, unspecified; E78.5 Hyperlipidemia, unspecified; Z68.31 Body mass index [BMI] 31.0-31.9, adult; Z79.899 Other long term (current) drug therapy; Z79.84 Long term (current) use of oral hypoglycemic drugs; Z79.82 Long term (current) use of aspirin; E03.9 Hypothyroidism, unspecified
CPT/HCPCS: 29580; 29581; 99212; 99213; G0463

== ENCOUNTER 2020-01-15 11:30 | Outpatient (RCR) | payer MEDICARE, SELFPAY ==
[2019-12-29 00:41] VITALS: BP 184/67; PULSE 66; RESP 18; TEMP 36.4
[2020-01-01 10:48] VITALS: BP 167/59; PULSE 53; RESP 20; TEMP 36.4; BMI 31.8
--- NOTE | 2020-01-01 12:13 | PCM.WC.HP ---
(1) Leg swelling Status: Chronic Current Visit: Yes Code(s): M79.89 - Other specified soft tissue disorders (2) Edema of both legs Status: Chronic Current Visit: Yes Code(s): R60.0 - Localized edema (3) Venous hypertension, chronic, with ulcer Status: Chronic Current Visit: Yes Code(s): I87.319 - Chronic venous hypertension (idiopathic) with ulcer of unspecified lower extremity; L97.909 - Non-pressure chronic ulcer of unspecified part of unspecified lower leg with unspecified severity (4) Venous stasis ulcer Status: Chronic Current Visit: Yes Qualifiers: Venous stasis ulcer site: calf Varicose vein presence: unspecified whether present Laterality: right Non-pressure ulcer stage: limited to breakdown of skin Qualified Code(s): I83.012 - Varicose veins of right lower extremity with ulcer of calf; L97.211 - Non-pressure chronic ulcer of right calf limited to breakdown of skin Code(s): I83.009 - Varicose veins of unspecified lower extremity with ulcer of unspecified site; L97.909 - Non-pressure chronic ulcer of unspecified part of unspecified lower leg with unspecified severity (5) Lymphedema Status: Chronic Current Visit: Yes Code(s): I89.0 - Lymphedema, not elsewhere classified (6) Obesity (BMI 30.0-34.9) Status: Chronic Current Visit: Yes Code(s): E66.9 - Obesity, unspecified (7) CAD (coronary artery disease) Status: Chronic Current Visit: No Code(s): I25.10 - Atherosclerotic heart disease of [place] coronary artery without angina pectoris (8) Diabetes mellitus Status: Chronic Current Visit: No Qualifiers: Diabetes mellitus type: type 2 Code(s): E11.9 - Type 2 diabetes mellitus without complications (9) Hypertension Status: Chronic Current Visit: No Code(s): I10 - Essential (primary) hypertension (10) History of [place] (myocardial infarction) Status: Chronic Current Visit: No Code(s): I25.2 - Old myocardial infarction (11) Hypothyroidism Status: Chronic Current Visit: No Code(s): E03.9 - Hypothyroidism, unspecified (12) Renal failure Status: Chronic Current Visit: No Code(s): N19 - Unspecified kidney failure (13) Hyperlipidemia Status: Chronic Current Visit: No Code(s): E78.5 - Hyperlipidemia, unspecified (14) Debility Status: Chronic Current Visit: Yes Code(s): R53.81 - Other malaise (15) Dependent edema Status: Chronic Current Visit: Yes Code(s): R60.9 - Edema, unspecified History of Present Illness Date of Service: 01/01/20 Chief Complaint: Severe swelling, edema, and lymphedema in the lower extremities bilaterally, with ulceration of the right anterior tibial surface History of Wound: This is a 79-year-old female who presented with severe swelling, edema, and lymphedema in the lower extremities bilaterally. In addition, she has an ulceration on the right anterior tibial surface, said to have been present for approximately 6 weeks. It initially occurred approximately 6 weeks prior to admission, having developed spontaneously. Initially, according to the patient, the area became blistered, and subsequently opened to form an ulceration. Patient is not active. She spends long hours each day sitting idlely. She sleeps in a chair. When ambulatory, she requires the use of a cane or walker. She is obese. Past Medical History Past Medical History: Chronic Problems Leg swelling (Chronic) Edema of both legs (Chronic) Venous hypertension, chronic, with ulcer (Chronic) Venous stasis ulcer (Chronic) Lymphedema (Chronic) Obesity (BMI 30.0-34.9) (Chronic) CAD (coronary artery disease) (Chronic) Diabetes mellitus (Chronic) Hypertension (Chronic) History of [place] (myocardial infarction) (Chronic) Hypothyroidism (Chronic) Renal failure (Chronic) Hyperlipidemia (Chronic) Debility (Chronic) Dependent edema (Chronic) Surgical History: - - Patient is undergone partial hysterectomy in the past. She is also undergone cholecystectomy. Coronary revascularization was performed approximately 6 years ago. The patient is a G3, P3 Ab0. Allergies/Adverse Reactions: Allergies indomethacin [From Indocin] Allergy (Verified 08/21/19 11:29) Vomiting Home Medications: Ambulatory Orders Medication Instructions Recorded Aspirin [Aspir 81] 81 mg PO DAILY 08/21/19 Atorvastatin Calcium 80 mg PO DAILY 08/21/19 Chlorthalidone 50 mg PO DAILY 08/21/19 Cholecalciferol (Vitamin D3) 2,000 unit PO DAILY 08/21/19 [Vitamin D3] Digoxin [Digitek] 125 mcg PO DAILY 08/21/19 Glimepiride [Amaryl] 2 mg PO DAILY 08/21/19 Hydralazine HCl 100 mg PO TID 08/21/19 Isosorbide Mononitrate [Isosorbide 30 mg PO DAILY 08/21/19 Mononitrate ER] Levothyroxine Sodium 125 mcg PO DAILY 08/21/19 Lisinopril 20 mg PO DAILY 08/21/19 Metoprolol Tartrate 50 mg PO BID 08/21/19 - Family History Paternal - - Patient's father at the age of 56 with a history of myocardial infarction. The patient's mother at the age of 56 with history of breast cancer. Smoking Status: Never smoker Tobacco Use: Non-smoker Review of Systems Constitutional: Denies: Chills, Fever, Weight Change Eyes: Denies: Pain, Vision Change HEENT: Denies: Difficulty Hearing, Difficulty Swallowing, Sinus Congestion Cardiovascular: Denies: Chest Pain, Palpitations Respiratory: Denies: Cough, Shortness of Breath Gastrointestinal: Denies: Diarrhea, Nausea, Vomiting Genitourinary: Denies: Dysuria, Hematuria Endocrine: Denies: Heat/ Cold Intolerance, Polydipsia, Polyuria Hematologic/ Lymphatic: Denies: Easy Bruising, Easy Bleeding - Physical Exam Vital Signs Temp Pulse Resp BP 97.6 F L 53 L 20 H 167/59 H 01/01/20 10:48 01/01/20 10:48 01/01/20 10:48 01/01/20 10:48 General: Alert, Oriented x3, Cooperative, No apparent distress, Well developed, Well nourished HEENT: Atraumatic, PERRLA, EOMI, Normocephalic Oral: Moist Mucosa Neck: No JVD Lungs: Normal air movement Abdomen: Non-Distended, Obese Extremities: No clubbing, No cyanosis, No Calf Tenderness, - - Swelling and edema persist in the patient's right lower extremity, as well as secondary lymphedema. These findings have been chronic in nature. Additionally, the patient has a large superficial ulceration on the right anterior tibial surface. This appears related to dependent edema and chronic venous insufficiency. There is no sign of infection or cellulitis. Dimensions are documented elsewhere. Wound Measurements and Assessment WC - Nurse 1 - General Ulcer Measurement Start: 01/01/20 10:48 Freq: Status: Active Protocol: Activity Type Activity Date Activity User E-Sign Co-Sign Detail Recorded Client Recorded Date Recorded By Document 01/01/20 10:48 DL [id number] 01/01/20 10:57 DL 01/01/20 10:48 Wound Center Nurse 1 [Ulcer Assessment] 1-right sinclair -Current Size (cm) - Length 10 -Current Size (cm) - Width 9 -Current Size (cm) - Depth 0.1 -Total Square Cm 90 -Photo Taken No -Exudate Amt Small -Exudate Type Serosanguineous -Wound Margin Indistinct, Non -Visible -Granulation Amt Large (67-100%) -Granulation Quality [place] -Necrosis Amt Small (1-33%) -Necrotic Tissue Type Adherent Slough -Structure Exposed N/A -Texture (Ileana-wound Skin Appearance) Localized Edema ,Scarring -Moisture (Ileana-wound Skin Appearance Weeping ) -Color (Ilaena-wound Skin Appearance) Rubor -Temperature (Ileana-wound Skin No Abnormality Appearance) (Pt Warm) -Tenderness on Palpation (Ileana-wound No Skin Appearance) -Ulcer Cleansing Wound Cleanser -Foul Odor after Cleansing No -Anesthetic Used 4% Lidocaine Solution [Edema Assessment] -Right Calf (cm) 40 -Right Ankle (cm) 28 Musculoskeletal: Muscle Wasting - Extremities Neurological: Cranial nerves II-XII grossly intact, Neuro grossly intact Psych/Mental Status: Normal Affect, Appropriate, Alert and oriented to time, place, person, mood and affect Debridement Note No debridement was completed today - The ulceration on the right anterior tibial surface is superficial Assessment/Plan Active Problems Leg swelling (Chronic) Edema of both legs (Chronic) Venous hypertension, chronic, with ulcer (Chronic) Venous stasis ulcer (Chronic) Lymphedema (Chronic) Obesity (BMI 30.0-34.9) (Chronic) Debility (Chronic) Dependent edema (Chronic) Assessment: This is a 79-year-old obese female with multiple pre-existing medical conditions. These include, but are not limited to, diabetes mellitus, coronary artery disease, hyperlipidemia, hypertension, hypothyroidism, renal insufficiency, etc. She has significant swelling, edema, and lymphedema in the lower extremities bilaterally, with an associated open ulceration on the right anterior tibial surface. Her presenting symptoms and manifestations appear to be related to lifestyle factors. She is sedentary, and sits for long periods each day. Furthermore, the patient sleeps in an upright position. She is obese, and not active. It appears as though these lifestyle factors have resulted in significant swelling, edema, and lymphedema in the patient's lower extremities, which have more recently resulted in the development of an ulceration on the right anterior tibial surface. The patient has demonstrated minimal improvement in recent weeks, with the implementation of conservative treatment measures. It appears as though compliance is an issue. She has not been elevating her lower extremities or using pneumatic compression pumps to the degree advised. Plan: The patient has been advised to elevate her lower extremities as much as possible. The means by which this is to be accomplished has been discussed in detail with the patient and with her daughter, who was at the bedside. The patient's legs are to be elevated to heart level, or higher. This is to be accomplished as much as possible, even during daytime hours. The patient has been advised to sleep on a flat mattress at night. Activity has been encouraged, though the patient is somewhat limited by her physical status. She has been urged to refrain from prolonged, idle standing and sitting. Weight loss has been recommended. She has now obtained one CircAid Velcro compression garment, which will be applied daily to the left lower extremity. She also has obtained mechanical pneumatic compression pumps, which are to be used 3 times daily. It appears as though the patient has been relatively noncompliant with leg elevation and pneumatic compression pumps. She has been encouraged to redouble her efforts in this regard. We are to consider placing the patient in the complex pathway. She will return henceforth on an every other week basis. We are to implement the use of Xeroform topically, and we will implement the use of a CircAid compression garment to the right lower extremity, which will be applied on a daily basis. The patient underwent laboratory testing, performed at [facility], the results of which are as follows: White blood count 8.6, hemoglobin 9.4, hematocrit 28.2, platelets 248,000, sodium 142, potassium 5.1, chloride 110, glucose 120, BUN 47, creatinine 2, calcium 9.5, total protein 6.4, hemoglobin A1c 6.4. A noninvasive lower extremity arterial study was ordered, but was not performed as scheduled due to insurance issues. However, the patient has been tolerating compression wraps thus far, without any adverse consequences. Patient has been advised to optimize her nutritional intake. Optimization of the patient's glycemic control has also been recommended. Questions remain as to the patient's compliance with recommended measures. The patient will return in 2 weeks for reassessment. Influenza vaccine was not administered today. Patient is not a smoker. The patient is 5 feet 3 inches tall. She weighs 180 pounds. Her BMI is 31.8, which places her in a class I obesity category. Weight loss has been recommended, in collaboration with her primary care physician in this regard has been advised.
[2020-01-15 11:46] VITALS: BP 188/63; PULSE 52; RESP 16; TEMP 35.4; BMI 31.8
--- NOTE | 2020-01-15 12:14 | PCM.WC.HP ---
(1) Leg swelling Status: Chronic Current Visit: Yes Code(s): M79.89 - Other specified soft tissue disorders (2) Edema of both legs Status: Chronic Current Visit: Yes Code(s): R60.0 - Localized edema (3) Venous hypertension, chronic, with ulcer Status: Chronic Current Visit: Yes Code(s): I87.319 - Chronic venous hypertension (idiopathic) with ulcer of unspecified lower extremity; L97.909 - Non-pressure chronic ulcer of unspecified part of unspecified lower leg with unspecified severity (4) Venous stasis ulcer Status: Chronic Current Visit: Yes Qualifiers: Venous stasis ulcer site: calf Varicose vein presence: unspecified whether present Laterality: right Non-pressure ulcer stage: limited to breakdown of skin Qualified Code(s): I83.012 - Varicose veins of right lower extremity with ulcer of calf; L97.211 - Non-pressure chronic ulcer of right calf limited to breakdown of skin Code(s): I83.009 - Varicose veins of unspecified lower extremity with ulcer of unspecified site; L97.909 - Non-pressure chronic ulcer of unspecified part of unspecified lower leg with unspecified severity (5) Lymphedema Status: Chronic Current Visit: Yes Code(s): I89.0 - Lymphedema, not elsewhere classified (6) Obesity (BMI 30.0-34.9) Status: Chronic Current Visit: Yes Code(s): E66.9 - Obesity, unspecified (7) CAD (coronary artery disease) Status: Chronic Current Visit: No Code(s): I25.10 - Atherosclerotic heart disease of [place] coronary artery without angina pectoris (8) Diabetes mellitus Status: Chronic Current Visit: No Qualifiers: Diabetes mellitus type: type 2 Code(s): E11.9 - Type 2 diabetes mellitus without complications (9) Hypertension Status: Chronic Current Visit: No Code(s): I10 - Essential (primary) hypertension (10) History of [place] (myocardial infarction) Status: Chronic Current Visit: No Code(s): I25.2 - Old myocardial infarction (11) Hypothyroidism Status: Chronic Current Visit: No Code(s): E03.9 - Hypothyroidism, unspecified (12) Renal failure Status: Chronic Current Visit: No Code(s): N19 - Unspecified kidney failure (13) Hyperlipidemia Status: Chronic Current Visit: No Code(s): E78.5 - Hyperlipidemia, unspecified (14) Debility Status: Chronic Current Visit: Yes Code(s): R53.81 - Other malaise (15) Dependent edema Status: Chronic Current Visit: Yes Code(s): R60.9 - Edema, unspecified History of Present Illness Date of Service: 01/15/20 Chief Complaint: Severe swelling, edema, and lymphedema in the lower extremities bilaterally, with ulceration of the right anterior tibial surface History of Wound: This is a 79-year-old female who presented with severe swelling, edema, and lymphedema in the lower extremities bilaterally. In addition, she has an ulceration on the right anterior tibial surface, said to have been present for approximately 6 weeks. It initially occurred approximately 6 weeks prior to admission, having developed spontaneously. Initially, according to the patient, the area became blistered, and subsequently opened to form an ulceration. Patient is not active. She spends long hours each day sitting idlely. She sleeps in a chair. When ambulatory, she requires the use of a cane or walker. She is obese. Past Medical History Past Medical History: Chronic Problems Leg swelling (Chronic) Edema of both legs (Chronic) Venous hypertension, chronic, with ulcer (Chronic) Venous stasis ulcer (Chronic) Lymphedema (Chronic) Obesity (BMI 30.0-34.9) (Chronic) CAD (coronary artery disease) (Chronic) Diabetes mellitus (Chronic) Hypertension (Chronic) History of [place] (myocardial infarction) (Chronic) Hypothyroidism (Chronic) Renal failure (Chronic) Hyperlipidemia (Chronic) Debility (Chronic) Dependent edema (Chronic) Surgical History: - - Patient is undergone partial hysterectomy in the past. She is also undergone cholecystectomy. Coronary revascularization was performed approximately 6 years ago. The patient is a G3, P3 Ab0. Allergies/Adverse Reactions: Allergies indomethacin [From Indocin] Allergy (Verified 08/21/19 11:29) Vomiting Home Medications: Ambulatory Orders Medication Instructions Recorded Aspirin [Aspir 81] 81 mg PO DAILY 08/21/19 Atorvastatin Calcium 80 mg PO DAILY 08/21/19 Chlorthalidone 50 mg PO DAILY 08/21/19 Cholecalciferol (Vitamin D3) 2,000 unit PO DAILY 08/21/19 [Vitamin D3] Digoxin [Digitek] 125 mcg PO DAILY 08/21/19 Glimepiride [Amaryl] 2 mg PO DAILY 08/21/19 Hydralazine HCl 100 mg PO TID 08/21/19 Isosorbide Mononitrate [Isosorbide 30 mg PO DAILY 08/21/19 Mononitrate ER] Levothyroxine Sodium 125 mcg PO DAILY 08/21/19 Lisinopril 20 mg PO DAILY 08/21/19 Metoprolol Tartrate 50 mg PO BID 08/21/19 - Family History Paternal - - Patient's father at the age of 56 with a history of myocardial infarction. The patient's mother at the age of 56 with history of breast cancer. Smoking Status: Never smoker Tobacco Use: Non-smoker Review of Systems Constitutional: Denies: Chills, Fever, Weight Change Eyes: Denies: Pain, Vision Change HEENT: Denies: Difficulty Hearing, Difficulty Swallowing, Sinus Congestion Cardiovascular: Denies: Chest Pain, Palpitations Respiratory: Denies: Cough, Shortness of Breath Gastrointestinal: Denies: Diarrhea, Nausea, Vomiting Genitourinary: Denies: Dysuria, Hematuria Endocrine: Denies: Heat/ Cold Intolerance, Polydipsia, Polyuria Hematologic/ Lymphatic: Denies: Easy Bruising, Easy Bleeding - Physical Exam Vital Signs Temp Pulse Resp BP 95.7 F L 52 L 16 188/63 H 01/15/20 11:46 01/15/20 11:46 01/15/20 11:46 01/15/20 11:46 General: Alert, Oriented x3, Cooperative, No apparent distress, Well developed, Well nourished HEENT: Atraumatic, PERRLA, EOMI, Normocephalic Oral: Moist Mucosa Neck: No JVD Lungs: Normal air movement Abdomen: Non-Distended Extremities: No clubbing, No cyanosis, No Calf Tenderness, - - Severe swelling and edema persist in the patient's lower extremities. This is in addition to the lymphedema, most prominent in the right lower extremity. A profound otitis is noted on the right anterior tibial surface, with superficial ulceration. Engines are documented elsewhere. There is no sign of infection or cellulitis. Wound Measurements and Assessment WC - Nurse 1 - General Ulcer Measurement Start: 01/01/20 10:48 Freq: Status: Active Protocol: Activity Type Activity Date Activity User E-Sign Co-Sign Detail Recorded Client Recorded Date Recorded By Document 01/15/20 11:46 [facility] [id number] 01/15/20 11:54 [facility] 01/15/20 11:46 Wound Center Nurse 1 [Ulcer Assessment] 1-right sinclair -Combined with other wound No -Current Size (cm) - Length 4.2 -Current Size (cm) - Width 3.5 -Current Size (cm) - Depth 0.1 -Total Square Cm 14.70 -Date of Last Picture (Recall this 01/15/20 field) -Photo Taken Yes -Epithelialization Small 1-33% -Tunneling No -Undermining/Tunneling No -Circular Undermining No -Exudate Amt Large -Exudate Type Serous -Wound Margin Flat & Intact -Granulation Amt Large (67-100%) -Granulation Quality Red -Slough/Fibrin No -Necrosis Amt None Present (0 %) -Texture (Ileana-wound Skin Appearance) Assessed, Excoriation, Scarring -Moisture (Ileana-wound Skin Appearance Assessed ) -Color (Ileana-wound Skin Appearance) Assessed, Erythema -Temperature (Ileana-wound Skin No Abnormality Appearance) (Pt Warm) -Tenderness on Palpation (Ileana-wound Yes Skin Appearance) -Ulcer Cleansing SOAPY WATER -Foul Odor after Cleansing No -Anesthetic Used 4% Lidocaine Solution [Edema Assessment] -Lower Limb Edema Present Yes -Right Calf (cm) 41.5 -Right Ankle (cm) 30.5 WC - Nurse 2 - General Ulcer CM Notes Start: 01/01/20 10:48 Freq: Status: Active Protocol: Activity Type Activity Date Activity User E-Sign Co-Sign Detail Recorded Client Recorded Date Recorded By Document 01/15/20 12:06 [id number] 01/15/20 12:08 DV 01/15/20 12:06 Wound Center Nurse 2 [Procedure/Treatment] 1-right sinclair -Time 12:07 -Correct Patient Yes -Correct Side, Site, Position Yes -Correct Procedure Yes -Procedure Performed Yes -Type of Procedure Debridement -Clinical Debridement Subcutaneous -Post Debridement Size (cm) - Length 2.5 -Post Debridement Size (cm) - Width 1.0 -Post Debridement Size (cm) - Depth 0.1 -Total Square Cm 2.50 -Wound/Ulcer Outcome Not Healed -Ulcer Cleansing Rinsed/ Irrigated with Saline -Foul Odor after Cleansing No -Bioengineered Tissue No -Bleeding Controlled with Pressure -Offloading No -Treatment Response Procedure Tolerated Well [See Physician Procedure note for Specifics] Pain Scale: 0-10 Numeric [Pain] -Is Patient Pain Free? Yes Neurological: Cranial nerves II-XII grossly intact, Neuro grossly intact Psych/Mental Status: Normal Affect, Appropriate, Alert and oriented to time, place, person, mood and affect Debridement Note Post-Debridement Measurements/Treatment WC - Nurse 2 - General Ulcer CM Notes Start: 01/01/20 10:48 Freq: Status: Active Protocol: Activity Type Activity Date Activity User E-Sign Co-Sign Detail Recorded Client Recorded Date Recorded By Document 01/01/20 12:14 DV [id number] 01/01/20 12:15 DV Document 01/15/20 12:06 DV [id number] 01/15/20 12:08 DV 01/01/20 01/15/20 12:14 12:06 Wound Center Nurse 2 1-right sinclair -Time 12:15 12:07 -Correct Patient Yes Yes -Correct Side, Site, Position Yes Yes -Correct Procedure No Yes -Procedure Performed No Yes -Type of Procedure Debridement -Clinical Debridement Subcutaneous -Post Debridement Size (cm) - Length 2.5 -Post Debridement Size (cm) - Width 1.0 -Post Debridement Size (cm) - Depth 0.1 -Total Square Cm 2.50 -Wound/Ulcer Outcome Not Healed Not Healed -Ulcer Cleansing Rinsed/ Irrigated with Saline -Foul Odor after Cleansing No -Bioengineered Tissue No -Bleeding Controlled with Pressure -Offloading No -Treatment Response Procedure Tolerated Well Pain Scale: 0-10 Numeric Is Patient Pain Free? Yes Yes Laterality: Right - Anterior tibial surface Type of Debridement: Selective debridement Anesthesia Used: 5% Lidocaine Gel Depth: Down to and including healthy tissue Percentage of wound debrided: 100 Instrument Used: 5mm curette Tissue Removed: Bioburden Severity: Limited To Skin Breakdown Amount of bleeding with debridement: Mild Bleeding Controlled with: Compression and gauze Patient tolerated procedure well Assessment/Plan Active Problems Leg swelling (Chronic) Edema of both legs (Chronic) Venous hypertension, chronic, with ulcer (Chronic) Venous stasis ulcer (Chronic) Lymphedema (Chronic) Obesity (BMI 30.0-34.9) (Chronic) Debility (Chronic) Dependent edema (Chronic) Assessment: This is a 79-year-old obese female with multiple pre-existing medical conditions. These include, but are not limited to, diabetes mellitus, coronary artery disease, hyperlipidemia, hypertension, hypothyroidism, renal insufficiency, etc. She has significant swelling, edema, and lymphedema in the lower extremities bilaterally, with an associated open ulceration on the right anterior tibial surface. Her presenting symptoms and manifestations appear to be related to lifestyle factors. She is sedentary, and sits for long periods each day. Furthermore, the patient sleeps in an upright position. She is obese, and not active. It appears as though these lifestyle factors have resulted in significant swelling, edema, and lymphedema in the patient's lower extremities, which have more recently resulted in the development of an ulceration on the right anterior tibial surface. The patient has demonstrated minimal improvement in recent weeks, with the implementation of conservative treatment measures. It appears as though compliance is an issue. She has not been elevating her lower extremities or using pneumatic compression pumps to the degree advised. Plan: The patient has been advised to elevate her lower extremities as much as possible. The means by which this is to be accomplished has been discussed in detail with the patient and with her daughter, who was at the bedside. The patient's legs are to be elevated to heart level, or higher. This is to be accomplished as much as possible, even during daytime hours. The patient has been advised to sleep on a flat mattress at night. Activity has been encouraged, though the patient is somewhat limited by her physical status. She has been urged to refrain from prolonged, idle standing and sitting. Weight loss has been recommended. She has now obtained one CircAid Velcro compression garment, which will be applied daily to the left lower extremity. She also has obtained mechanical pneumatic compression pumps, which are to be used 3 times daily. It appears as though the patient has been relatively noncompliant with leg elevation and pneumatic compression pumps. However, she claims to the contrary. She has been encouraged to redouble her efforts at compression and elevation. We are to consider placing the patient in the complex pathway. She will return henceforth on an every other week basis. We are to implement the use of Melg[employer] topically to the right anterior tibial surface, and we will use SurePress wraps on a daily basis to the right lower extremity as well. She is to continue with the CircAid compression garment to the left lower extremity daily. The patient underwent laboratory testing, performed at [facility], the results of which are as follows: White blood count 8.6, hemoglobin 9.4, hematocrit 28.2, platelets 248,000, sodium 142, potassium 5.1, chloride 110, glucose 120, BUN 47, creatinine 2, calcium 9.5, total protein 6.4, hemoglobin A1c 6.4. A noninvasive lower extremity arterial study was ordered, but was not performed as scheduled due to insurance issues. However, the patient has been tolerating compression wraps thus far, without any adverse consequences. Patient has been advised to optimize her nutritional intake. Optimization of the patient's glycemic control has also been recommended. Questions remain as to the patient's compliance with recommended measures. The patient will return in 2 weeks for reassessment. We are to refer the patient to the Lymphedema Clinic for evaluation and recommendations, as current management has been relatively ineffective in managing the patient's swelling, edema, and lymphedema in the right lower extremity. However, issues related to compliance are thought to be a consideration. Influenza vaccine was not administered today. Patient is not a smoker. The patient is 5 feet 3 inches tall. She weighs 180 pounds. Her BMI is 31.8, which places her in a class I obesity category. Weight loss has been recommended, in collaboration with her primary care physician in this regard has been advised.
== END 2020-01-26 23:59 ==
LOC: WC 11:30
PROVIDERS: Family Provider Family Medicine; PCP Family Medicine; Visit Provider Surgery
DX: I83.018 Varicose veins of right lower extremity with ulcer other part of lower leg (principal); L97.811 Non-pressure chronic ulcer of other part of right lower leg limited to breakdown of skin; R60.0 Localized edema; M79.89 Other specified soft tissue disorders; I89.0 Lymphedema, not elsewhere classified; I25.10 Atherosclerotic heart disease of native coronary artery without angina pectoris; E11.9 Type 2 diabetes mellitus without complications; E66.9 Obesity, unspecified; E78.5 Hyperlipidemia, unspecified; I25.2 Old myocardial infarction; I10 Essential (primary) hypertension; E03.9 Hypothyroidism, unspecified; Z79.899 Other long term (current) drug therapy; Z79.82 Long term (current) use of aspirin; Z68.31 Body mass index [BMI] 31.0-31.9, adult; Z71.3 Dietary counseling and surveillance; Z79.84 Long term (current) use of oral hypoglycemic drugs; Z91.19 Patient's noncompliance with other medical treatment and regimen
CPT/HCPCS: 97597; 99213; G0463

== ENCOUNTER 2020-02-05 09:09 | Outpatient (RCR) | payer MEDICARE, SELFPAY ==
[2020-01-27 00:33] VITALS: BP 188/63; PULSE 52; RESP 16; TEMP 35.4
== END 2020-02-26 23:59 ==
LOC: WC 09:09
PROVIDERS: Family Provider Family Medicine; PCP Family Medicine; Visit Provider Surgery
DX: Z09 Encounter for follow-up examination after completed treatment for conditions other than malignant neoplasm (principal)

== ENCOUNTER 2020-10-07 09:30 | Outpatient (RCR) | payer MEDICARE, SELFPAY ==
--- NOTE | 2020-10-06 12:05 | HP.PCM_ITS ---
History of Present Illness Date of Service: 10/06/20 Chief Complaint: Severe swelling, edema, and lymphedema in the lower extremities bilaterally, with ulceration of the right anterior tibial surface History of Wound: This is a 79-year-old female who presented with severe swelling, edema, and lymphedema in the lower extremities bilaterally. In addition, she has an ulceration on the right anterior tibial surface, said to have been present for approximately 6 weeks. It initially occurred appr oximately 6 weeks prior to admission, having developed spontaneously. Initially, according to the patient, the area became blistered, and subsequently opened to form an ulceration. Patient is not active. She spends long hours each day sitting idlely. She sleeps in a chair. When ambulatory, she requires the use of a cane or walker. She is obese. Past Medical History Past Medical History: Chronic Problems Leg swelling (Chronic) Edema of both legs (Chronic) Venous hypertension, chronic, with ulcer (Chronic) Venous stasis ulcer (Chronic) Lymphedema (Chronic) Obesity (BMI 30.0-34.9) (Chronic) CAD (coronary artery disease) (Chronic) Diabetes mellitus (Chronic) Hypertension (Chronic) History of [place] (myocardial infarction) (Chronic) Hypothyroidism (Chronic) Renal failure (Chronic) Hyperlipidemia (Chronic) Debility (Chronic) Dependent edema (Chronic) Surgical History: - - Patient is undergone partial hysterectomy in the past. She is also undergone cholecystectomy. Coronary revascularization was performed approximately 6 years ago. The patient is a G3, P3 Ab0. Allergies/Adverse Reactions: Allergies indomethacin [From Indocin] Allergy (Verified 08/21/19 11:29) Vomiting Home Medications: Ambulatory Orders Medication Instructions Recorded Aspirin [Aspir 81] 81 mg PO DAILY 08/21/19 Atorvastatin Calcium 80 mg PO DAILY 08/21/19 Chlorthalidone 50 mg PO DAILY 08/21/19 Cholecalciferol (Vitamin D3) 2,000 unit PO DAILY 08/21/19 [Vitamin D3] Digoxin [Digitek] 125 mcg PO DAILY 08/21/19 Glimepiride [Amaryl] 2 mg PO DAILY 08/21/19 Hydralazine HCl 100 mg PO TID 08/21/19 Isosorbide Mononitrate [Isosorbide 30 mg PO DAILY 08/21/19 Mononitrate ER] Levothyroxine Sodium 125 mcg PO DAILY 08/21/19 Lisinopril 20 mg PO DAILY 08/21/19 Metoprolol Tartrate 50 mg PO BID 08/21/19 - Family History Paternal - - Patient's father at the age of 56 with a history of myocardial infarction. The patient's mother at the age of 56 with history of breast cancer. Smoking Status: Never smoker Assessment/Plan Assessment: This is a 79-year-old obese female with multiple pre-existing medical conditions. These include, but are not limited to, diabetes mellitus, coronary artery disease, hyperlipidemia, hypertension, hypothyroidism, renal insufficiency, etc. She has significant swelling, edema, and lymphedema in the lower extremities bilaterally, with an associated open ulceration on the right anterior tibial surface. Her presenting symptoms and manifestations appear to be related to lifestyle factors. She is sedentary, and sits for long periods each day. Furthermore, the patient sleeps in an upright position. She is obese, and not active. It appears as though these lifestyle factors have resulted in significant swelling, edema, and lymphedema in the patient's lower extremities, which have more recently resulted in the development of an ulceration on the right anterior tibial surface. The patient has demonstrated minimal improvement in recent weeks, with the implementation of conservative treatment measures. It appears as though compliance is an issue. She has not been elevating her lower extremities or using pneumatic compression pumps to the degree advised. Plan: The patient has been advised to elevate her lower extremities as much as possible. The means by which this is to be accomplished has been discussed in detail with the patient and with her daughter, who was at the bedside. The patient's legs are to be elevated to heart level, or higher. This is to be accomplished as much as possible, even during daytime hours. The patient has been advised to sleep on a flat mattress at night. Activity has been encouraged, though the patient is somewhat limited by her physical status. She has been urged to refrain from prolonged, idle standing and sitting. Weight loss has been recommended. She has now obtained one CircAid Velcro compression garment, which will be applied daily to the left lower extremity. She also has obtained mechanical pneumatic compression pumps, which are to be used 3 times daily. It appears as though the patient has been relatively noncompliant with leg elevation and pneumatic compression pumps. However, she claims to the contrary. She has been encouraged to redouble her efforts at compression and elevation. We are to consider placing the patient in the complex pathway. She will return henceforth on an every other week basis. We are to implement the use of Melgisorb [employer] topically to the right anterior tibial surface, and we will use SurePress wraps on a daily basis to the right lower extremity as well. She is to continue with the CircAid compression garment to the left lower extremity daily. The patient underwent laboratory testing, performed at [facility], the results of which are as follows: White blood count 8.6, hemoglobin 9.4, hematocrit 28.2, platelets 248,000, sodium 142, potassium 5.1, chloride 110, glucose 120, BUN 47, creatinine 2, calcium 9.5, total protein 6.4, hemoglobin A1c 6.4. A noninvasive lower extremity arterial study was ordered, but was not performed as scheduled due to insurance issues. However, the patient has been tolerating compression wraps thus far, without any adverse consequences. Patient has been advised to optimize her nutritional intake. Optimization of the patient's glycemic control has also been recommended. Questions remain as to the patient's compliance with recommended measures. The patient will return in 2 weeks for reassessment. We are to refer the patient to the Lymphedema Clinic for evaluation and recommendations, as current management has been relatively ineffective in managing the patient's swelling, edema, and lymphedema in the right lower extremity. However, issues related to compliance are thought to be a consideration. Influenza vaccine was not administered today. Patient is not a smoker. The patient is 5 feet 3 inches tall. She weighs 180 pounds. Her BMI is 31.8, which places her in a class I obesity category. Weight loss has been recommended, in collaboration with her primary care physician in this regard has been advised.
[2020-10-07 09:45] VITALS: BP 166/50; PULSE 46; RESP 16; TEMP 35.9; BMI 33.6
--- NOTE | 2020-10-07 10:57 | HP.PCM_ITS ---
(1) Pressure ulcer of buttock Status: Chronic Qualifiers: Pressure injury stage: stage 3 Laterality: right Qualified Code(s): L89.313 - Pressure ulcer of right buttock, stage 3 Code(s): L89.309 - Pressure ulcer of unspecified buttock, unspecified stage (2) Anemia Status: Chronic Code(s): D64.9 - Anemia, unspecified (3) Obesity (BMI 30.0-34.9) Status: Chronic Code(s): E66.9 - Obesity, unspecified (4) CAD (coronary artery disease) Status: Chronic Qualifiers: Coronary Disease-Associated Artery/Lesion type: sh[place]nee artery [place] vs. transplanted heart: shawnee heart Code(s): I25.10 - Atherosclerotic heart disease of shawnee coronary artery without angina pectoris (5) Diabetes mellitus Status: Chronic Qualifiers: Diabetes mellitus type: type 2 Code(s): E11.9 - Type 2 diabetes mellitus without complications (6) Hypertension Status: Chronic Code(s): I10 - Essential (primary) hypertension (7) History of [place] (myocardial infarction) Status: Chronic Code(s): I25.2 - Old myocardial infarction (8) Hypothyroidism Status: Chronic Code(s): E03.9 - Hypothyroidism, unspecified (9) Renal failure Status: Chronic Qualifiers: Renal failure chronicity: chronic Code(s): N19 - Unspecified kidney failure (10) Hyperlipidemia Status: Chronic Code(s): E78.5 - Hyperlipidemia, unspecified (11) Debility Status: Chronic Code(s): R53.81 - Other malaise (12) Dependent edema Status: Chronic Code(s): R60.9 - Edema, unspecified History of Present Illness Date of Service: 10/07/20 Chief Complaint: Pressure ulceration of the right buttock, stage III History of Wound: This is an 80-year-old female who presents with a pressure ulceration on her right buttock. It is located overlying the right ischium. According to the patient, and her daughter at the bedside, the pressure ulceration has been present for approximately 1 month. It appears to be a stage III pressure ulceration. Approximately 3 to 4 weeks ago, the patient passed out, and required hospitalization. She is currently an inpatient at the rehabilitation unit in [place], [place]. She was found to have anemia, and is required to recent blood transfusions. Her hemoglobin was initially found to be about 6. With respect to her anemia, patient has undergone recent colonoscopy and esophagogastroduodenoscopy, both of which are said to have been negative. Treatment with regard to the patient's right buttock pressure ulcer has been with Mesalt packing. It does not appear as though the patient has any special c ushioning on her mattress or on the chair in which she sits. The chair that she typically sits in during daytime hours is described as being hard. Past Medical History Past Medical History: Chronic Problems Leg swelling (Chronic) Edema of both legs (Chronic) Venous hypertension, chronic, with ulcer (Chronic) Venous stasis ulcer (Chronic) Lymphedema (Chronic) Obesity (BMI 30.0-34.9) (Chronic) CAD (coronary artery disease) (Chronic) Diabetes mellitus (Chronic) Hypertension (Chronic) History of [place] (myocardial infarction) (Chronic) Hypothyroidism (Chronic) Renal failure (Chronic) Hyperlipidemia (Chronic) Debility (Chronic) Dependent edema (Chronic) Pressure ulcer of buttock (Chronic) Anemia (Chronic) Past Medical History: Patient has a history of obesity (Class 1), coronary artery disease, diabetes mellitus, hypertension, hyperlipidemia, debility, renal failure, hypothyroidism, and history of myocardial infarction. Surgical History: - - Patient has undergone hysterectomy in the past. She has also undergone cholecystectomy. Coronary revascularization was performed approximately 6 years ago. The patient is a G3, P3 Ab0. Allergies/Adverse Reactions: Allergies indomethacin [From Indocin] Allergy (Verified 10/07/20 10:21) Vomiting Home Medications: Ambulatory Orders Medication Instructions Recorded Cholecalciferol (Vitamin D3) 2,000 unit PO DAILY 08/21/19 [Vitamin D3] Digoxin [Digitek] 125 mcg PO DAILY 08/21/19 Glimepiride [Amaryl] 2 mg PO DAILY 08/21/19 Isosorbide Mononitrate [Isosorbide 30 mg PO DAILY 08/21/19 Mononitrate ER] RX: Atorvastatin Calcium 80 mg PO DAILY 08/21/19 RX: Hydralazine HCl 100 mg PO TID 08/21/19 RX: Levothyroxine Sodium 125 mcg PO DAILY 08/21/19 Amlodipine [Norvasc] 5 mg PO DAILY 10/07/20 Carvedilol [Coreg] 12.5 mg PO 10/07/20 Docusate Sodium [Colace Clear] 50 mg PO 10/07/20 RX: Acetaminophen [Mapap] PRN PRN 10/07/20 - Family History Paternal - - Patient's father at the age of 56 with a history of myocardial infarction. The patient's mother at the age of 56 with history of breast cancer. Social History: The patient is a . She currently resides at the inpatient rehabilitation facility in [place], [place]. She denies the use of tobacco and alcohol products. Tobacco Use: Non-smoker Alcohol: None Drugs: None Review of Systems Constitutional: Denies: Chills, Fever, Weight Change Eyes: Denies: Pain, Vision Change HEENT: Denies: Difficulty Hearing, Difficulty Swallowing, Sinus Congestion Cardiovascular: Denies: Chest Pain, Palpitations Respiratory: Denies: Cough, Shortness of Breath Gastrointestinal: Denies: Diarrhea, Nausea, Vomiting Genitourinary: Denies: Dysuria, Hematuria Endocrine: Denies: Heat/ Cold Intolerance, Polydipsia, Polyuria Hematologic/ Lymphatic: Denies: Easy Bruising, Easy Bleeding - Physical Exam Vital Signs Temp Pulse Resp BP 96.7 F L 46 L 16 166/50 H 10/07/20 09:45 10/07/20 09:45 10/07/20 09:45 10/07/20 09:45 General: Alert, Oriented x3, Cooperative, No apparent distress, Well developed, Well nourished HEENT: Atraumatic, PERRLA, EOMI, Normocephalic Oral: Moist Mucosa Neck: No JVD Lungs: Normal air movement Abdomen: Soft, Non Tender, Non-Distended Extremities: No clubbing, No cyanosis Addt'l Wound Findings: There is a pressure ulceration located overlying the right ischium, on the right buttock. There is a large amount of necrotic and nonviable tissue. There is no sign of obvious infection or cellulitis. Ulcer dimensions are documented elsewhere. There is a small amount of undermining located superiorly and laterally. Wound Measurements and Assessment WC - Nurse 1 - General Ulcer Measurement Start: 10/07/20 09:45 Freq: Status: Active Protocol: Activity Type Activity Date Activity User E-Sign Co-Sign Detail Recorded Client Recorded Date Recorded By Document 10/07/20 09:45 [facility] [id number] 10/07/20 10:08 [facility] 10/07/20 09:45 Wound Center Nurse 1 [Ulcer Assessment] #2- R BUTTOCK -Combined with other wound No -Current Size (cm) - Length 2.3 -Current Size (cm) - Width 3 -Current Size (cm) - Depth 0.4 -Total Square Cm 6.9 -Date of Last Picture (Recall this 10/07/20 field) -Photo Taken Yes -Epithelialization None Present -Tunneling No -Undermining/Tunneling No -Circular Undermining No -Exudate Amt Large -Exudate Type Serosanguineous -Wound Margin Distinct, Outline Attached -Granulation Amt Small (1-33%) -Granulation Quality Red -Slough/Fibrin Yes -Necrosis Amt Large (67-100%) -Necrotic Tissue Type Adherent Slough -Texture (Ileana-wound Skin Appearance) Assessed -Moisture (Ileana-wound Skin Appearance Assessed ) -Color (Ileana-wound Skin Appearance) Assessed, Erythema -Temperature (Ileana-wound Skin No Abnormality Appearance) (Pt Warm) -Tenderness on Palpation (Ileana-wound No Skin Appearance) -Ulcer Cleansing Rinsed/ Irrigated with Saline -Foul Odor after Cleansing No -Anesthetic Used 4% Lidocaine Solution Neurological: Cranial nerves II-XII grossly intact, Neuro grossly intact Psych/Mental Status: Normal Affect, Appropriate, Alert and oriented to time, place, person, mood and affect Debridement Note Laterality: Right - Buttock Wound Grade/Stage: Pressure ulceration, stage III Type of Debridement: Excisional debridement Anesthesia Used: 5% Lidocaine Gel Depth: Down to and including healthy tissue, in the subcutaneous layer Percentage of wound debrided: 100 Instrument Used: 5mm curette, Forceps, - - Scissors Tissue Removed: Necrotic, gangrenous, and nonviable tissue. Severity: Fat Layer Exposed Amount of bleeding with debridement: Mild Bleeding Controlled with: Compression and gauze Patient tolerated procedure well Assessment/Plan Active Problems Obesity (BMI 30.0-34.9) (Chronic) CAD (coronary artery disease) (Chronic) Diabetes mellitus (Chronic) Hypertension (Chronic) History of [place] (myocardial infarction) (Chronic) Hypothyroidism (Chronic) Renal failure (Chronic) Hyperlipidemia (Chronic) Debility (Chronic) Dependent edema (Chronic) Pressure ulcer of buttock (Chronic) Anemia (Chronic) Assessment: This is an 80-year-old female with multiple pre-existing medical problems, outlined above. Approximately 3 to 4 weeks ago, the patient passed out, leading to inpatient hospitalization. She was found to have profound anemia, for which she has received transfusions. She remains in an inpatient rehabilitation facility at this time. She has developed a stage III pressure ulceration overlying the right ischium on the right buttock. At presentation, there was a large amount of necrotic and gangrenous tissue present. Debridement has removed approximately 95% of this necrotic material. Plan: A lengthy discussion has been undertaken with the patient and her daughter at the bedside. We are to implement offloading measures. The patient is to be repositioned frequently. We are to request appropriate cushioning for the patient's chair, while in a sitting position, and on her mattress. A Roho cushion, or similar, will be requested. A low air loss mattress will also be requested. We are to obtain routine laboratory studies, including a CBC, comprehensive metabolic profile, serum prealbumin, and hemoglobin A1c. This will allow for assessment of the patient's nutritional status, presence of anemia, infection, etc. We are to implement the use of collagenase Santyl, and gauze packing, which will be changed on a daily basis. The combination of pressure offloading and local wound management will begin without delay. Patient has been encouraged to take a well-balanced and nutritious diet. Nutritional supplements may be of benefit. Optimization of the patient's blood sugars has also been recommended. The patient is to return in 1 week for reassessment. It is anticipated that the results of her laboratory testing will be available at that time. Influenza vaccine was not administered today. Patient is not a smoker. The patient is 5 feet 3 inches tall. She weighs 190 pounds. Her BMI is 33.7, which places her in a class I obesity category.
== END 2020-10-27 23:59 ==
LOC: WC 09:30
PROVIDERS: PCP Family Medicine; Visit Provider Surgery
DX: L89.313 Pressure ulcer of right buttock, stage 3 (principal); E11.52 Type 2 diabetes mellitus with diabetic peripheral angiopathy with gangrene; E11.22 Type 2 diabetes mellitus with diabetic chronic kidney disease; D64.9 Anemia, unspecified; E66.9 Obesity, unspecified; I25.10 Atherosclerotic heart disease of native coronary artery without angina pectoris; I12.9 Hypertensive chronic kidney disease with stage 1 through stage 4 chronic kidney disease, or unspecified chronic kidney disease; E03.9 Hypothyroidism, unspecified; E78.5 Hyperlipidemia, unspecified; I25.2 Old myocardial infarction; R53.81 Other malaise; R60.9 Edema, unspecified; I89.0 Lymphedema, not elsewhere classified; Z68.33 Body mass index [BMI] 33.0-33.9, adult; Z79.82 Long term (current) use of aspirin; Z79.84 Long term (current) use of oral hypoglycemic drugs; Z79.899 Other long term (current) drug therapy; Z80.3 Family history of malignant neoplasm of breast; Z82.49 Family history of ischemic heart disease and other diseases of the circulatory system; Z90.49 Acquired absence of other specified parts of digestive tract; Z90.710 Acquired absence of both cervix and uterus; Z91.19 Patient's noncompliance with other medical treatment and regimen
CPT/HCPCS: 11042; 99212; G0463